=== PATIENT | female | born 1935 | race Caucasian/White ===

== ENCOUNTER 2017-06-15 04:46 | Observation (INO) | payer MEDICARE ==
[2017-06-15 06:44] LABS: Basophils # (A) 0.1 k/uL (0-0.2); Basophils % (A) 1 %; Eosinophils # (A) 0.2 k/uL (0-0.7); Eosinophils % (A) 3 %; HCT 44.4 % (34.0-46.0); HGB 14.1 gm/dL (11.4-16.0); Lymphocytes # (A) 0.7 k/uL (1.0-4.8); Lymphocytes % (A) 13 %; MCH 31.8 pg (25.0-35.0); MCHC 31.6 g/dL (31.0-37.0); MCV 100.4 fL (80.0-100.0); Mean Platelet Volume 8.3; Monocytes # (A) 0.4 k/uL (0-1.0); Monocytes % (A) 7 %; Neutrophils # (A) 3.9 k/uL (1.3-7.7); Neutrophils % (A) 75 %; Platelet Count 200 k/uL (150-450); RBC 4.43 m/uL (3.80-5.40); RDW 13.6 % (11.5-15.5); WBC 5.3 k/uL (3.8-10.6)
--- NOTE | 2017-06-15 06:46 | ED ---
General Adult HPI - General Chief complaint: Chest Pain Stated complaint: chest pain Time Seen by Provider: 06/15/17 04:48 Source: patient, RN notes reviewed, old records reviewed Mode of arrival: ambulatory Limitations: no limitations - History of Present Illness Initial comments: this is an 82-year-old female to the ER for evaluation of chest pain today. Patient is positive history of heart disease, patient came in about 10 years ago with bypass, she states this pain is similar to the old and it was in her left jaw this is more anterior chest. Mild nausea no vomiting. No modifying factors, symptoms awoke her from sleep tonight. No other recent symptoms, no fatigue. Activity levels been normal. No fevers no cough or congestion. Patient denies any travel history. Patient did see her grab setter recently and was started on Lipitor. Patient complaining of mild upset stomach - Related Data Home Medications Medication Instructions Recorded Confirmed ALPRAZolam [Xanax] 0.25 mg PO BID PRN 09/27/15 09/27/15 Aspirin EC [Ecotrin] 81 mg PO DAILY 09/27/15 09/27/15 Atenolol [Tenormin] 25 mg PO DAILY 09/27/15 09/27/15 Atorvastatin [Lipitor] 20 mg PO DAILY 09/27/15 09/27/15 amLODIPine [Norvasc] 2.5 mg PO DAILY 09/27/15 09/27/15 Allergies Allergy/AdvReac Type Severity Reaction Status Date / Time morphine AdvReac Hallucinati Verified 06/15/17 05:20 ons Review of Systems ROS Statement: Those systems with pertinent positive or pertinent negative responses have been documented in the HPI. ROS Other: All systems not noted in ROS Statement are negative. Past Medical History Past Medical History: Hypertension, Myocardial Infarction ([place]) History of Any Multi-Drug Resistant Organisms: None Reported Past Surgical History: Coronary Bypass/CABG Past Psychological History: No Psychological Hx Reported Smoking Status: Never smoker Past Alcohol Use History: None Reported Past Drug Use History: None Reported General Exam Limitations: no limitations General appearance: alert, in no apparent distress Head exam: Present: atraumatic, normocephalic, normal inspection Eye exam: Present: normal appearance, PERRL, EOMI. Absent: scleral icterus, conjunctival injection, periorbital swelling ENT exam: Present: normal exam, mucous membranes moist Neck exam: Present: normal inspection. Absent: tenderness, meningismus, lymphadenopathy Respiratory exam: Present: normal lung sounds bilaterally. Absent: respiratory distress, wheezes, rales, rhonchi, stridor Cardiovascular Exam: Present: regular rate, normal rhythm, normal heart sounds. Absent: systolic murmur, diastolic murmur, rubs, gallop, clicks GI/Abdominal exam: Present: soft, normal bowel sounds. Absent: distended, tenderness, guarding, rebound, rigid Extremities exam: Present: normal inspection, full ROM, normal capillary refill. Absent: tenderness, pedal edema, joint swelling, calf tenderness Back exam: Present: normal inspection Neurological exam: Present: alert, oriented X3, CN II-XII intact Psychiatric exam: Present: normal affect, normal mood Skin exam: Present: warm, dry, intact, normal color. Absent: rash Course Vital Signs 06/15/17 06/15/17 06/15/17 05:17 06:31 07:26 Temperature 98.2 F 97.9 F Pulse Rate 90 74 73 Respiratory 18 18 16 Rate Blood Pressure 160/76 154/73 152/69 O2 Sat by Pulse 94 L 100 99 Oximetry - Reevaluation(s) Reevaluation #1: 06/15/17 07:48 patient has pain control at this time, nauseous EKG Findings - EKG Comments: EKG Findings:: EKG shows normal sinus rhythm of 73, ND 176, QRS 90, QTc 425 Medical Decision Making - Medical Decision Making 82 female to ER for evaluation of chest pain. Episode of chest pain tonight. Patient will be admitted for cardiac observation secondary to history of coronary artery bypass grafting. - Lab Data Result diagrams: 06/15/17 06:23 06/15/17 06:23 Lab Results 06/15/17 06/15/17 06/15/17 Range/Units 06:23 06:23 06:23 WBC 5.3 (3.8-10.6) k/uL RBC 4.43 (3.80-5.40) m/uL Hgb 14.1 (11.4-16.0) gm/dL Hct 44.4 (34.0-46.0) % MCV 100.4 H (80.0-100.0) fL MCH 31.8 (25.0-35.0) pg MCHC 31.6 (31.0-37.0) g/dL RDW 13.6 (11.5-15.5) % Plt Count 200 (150-450) k/uL Neutrophils % 75 % Lymphocytes % 13 % Monocytes % 7 % Eosinophils % 3 % Basophils % 1 % Neutrophils # 3.9 (1.3-7.7) k/uL Lymphocytes # 0.7 L (1.0-4.8) k/uL Monocytes # 0.4 (0-1.0) k/uL Eosinophils # 0.2 (0-0.7) k/uL Basophils # 0.1 (0-0.2) k/uL PT (9.0-12.0) sec INR (<1.2) APTT (22.0-30.0) sec Sodium 142 (137-145) mmol/L Potassium 4.0 (3.5-5.1) mmol/L Chloride 109 H (98-107) mmol/L Carbon Dioxide 24 (22-30) mmol/L Anion Gap 9 mmol/L BUN 17 (7-17) mg/dL Creatinine 0.65 (0.52-1.04) mg/dL Est GFR (MDRD) Af Amer >60 (>60 ml/min/1.73 sqM) Est GFR (MDRD) Non-Af >60 (>60 ml/min/1.73 sqM) Glucose 105 H (74-99) mg/dL Calcium 9.6 (8.4-10.2) mg/dL Phosphorus 3.2 (2.5-4.5) mg/dL Magnesium 1.8 (1.6-2.3) mg/dL Total Bilirubin 0.7 (0.2-1.3) mg/dL AST 206 H (14-36) U/L ALT 547 H (9-52) U/L Alkaline Phosphatase 284 H (38-126) U/L Total Creatine Kinase 49 (30-135) U/L CK-MB (CK-2) 0.7 (0.0-2.4) ng/mL CK-MB (CK-2) Rel Index 1.4 Troponin I <0.012 (0.000-0.034) ng/mL Total Protein 6.7 (6.3-8.2) g/dL Albumin 3.7 (3.5-5.0) g/dL 12/20/17 Range/Units 06:23 WBC (3.8-10.6) k/uL RBC (3.80-5.40) m/uL Hgb (11.4-16.0) gm/dL Hct (34.0-46.0) % MCV (80.0-100.0) fL MCH (25.0-35.0) pg MCHC (31.0-37.0) g/dL RDW (11.5-15.5) % Plt Count (150-450) k/uL Neutrophils % % Lymphocytes % % Monocytes % % Eosinophils % % Basophils % % Neutrophils # (1.3-7.7) k/uL Lymphocytes # (1.0-4.8) k/uL Monocytes # (0-1.0) k/uL Eosinophils # (0-0.7) k/uL Basophils # (0-0.2) k/uL PT 9.9 (9.0-12.0) sec INR 1.0 (<1.2) APTT 22.7 (22.0-30.0) sec Sodium (137-145) mmol/L Potassium (3.5-5.1) mmol/L Chloride (98-107) mmol/L Carbon Dioxide (22-30) mmol/L Anion Gap mmol/L BUN (7-17) mg/dL Creatinine (0.52-1.04) mg/dL Est GFR (MDRD) Af Amer (>60 ml/min/1.73 sqM) Est GFR (MDRD) Non-Af (>60 ml/min/1.73 sqM) Glucose (74-99) mg/dL Calcium (8.4-10.2) mg/dL Phosphorus (2.5-4.5) mg/dL Magnesium (1.6-2.3) mg/dL Total Bilirubin (0.2-1.3) mg/dL AST (14-36) U/L ALT (9-52) U/L Alkaline Phosphatase (38-126) U/L Total Creatine Kinase (30-135) U/L CK-MB (CK-2) (0.0-2.4) ng/mL CK-MB (CK-2) Rel Index Troponin I (0.000-0.034) ng/mL Total Protein (6.3-8.2) g/dL Albumin (3.5-5.0) g/dL - Radiology Data Radiology results: report reviewed (chest x-ray is negative, ultrasound of gallbladder is pending), image reviewed Disposition Clinical Impression: Chest pain Disposition: ADMITTED IP TO THIS HOSP Condition: Fair Instructions: Chest Pain (ED) Referrals: Ba Corbin DO [Primary Care Provider] - 1-2 days
[2017-06-15 06:50] LABS: Partial Thromboplastin Time 22.7 sec (22.0-30.0); Prothrombin Time 9.9 sec (9.0-12.0)
--- NOTE | 2017-06-15 06:52 | XR ---
EXAM: XR Chest, 2 Views CLINICAL HISTORY: Weakness TECHNIQUE: Frontal and lateral views of the chest. COMPARISON: 09/27/2015 FINDINGS: Lungs: Stable COPD. Pleural space: Biapical pleural thickening is suggested. No pneumothorax. Heart: Patient status post CABG with sternotomy wires again seen. Mediastinum: Unchanged. Bones/joints: Stable osseous structures. IMPRESSION: Stable COPD without radiographic evidence of acute cardiopulmonary process.
[2017-06-15 06:53] LABS: ALT 547 U/L (9-52); AST 206 U/L (14-36); Albumin 3.7 g/dL (3.5-5.0); Alkaline Phosphatase 284 U/L (38-126); Anion Gap 9 mmol/L; Blood Urea Nitrogen 17 mg/dL (7-17); Calcium 9.6 mg/dL (8.4-10.2); Carbon Dioxide 24 mmol/L (22-30); Chloride 109 mmol/L (98-107); Glucose 105 mg/dL (74-99); Magnesium 1.8 mg/dL (1.6-2.3); Phosphorus 3.2 mg/dL (2.5-4.5); Sodium 142 mmol/L (137-145); Total Bilirubin 0.7 mg/dL (0.2-1.3); Total Protein 6.7 g/dL (6.3-8.2)
[2017-06-15 07:06] LABS: Creatine Kinase 49 U/L (30-135)
[2017-06-15 07:19] LABS: Creatine Kinase MB 0.7 ng/mL (0.0-2.4); Troponin I <0.012 ng/mL (0.000-0.034)
[2017-06-15] MEDS ORDERED: NITROGLYCERIN SL TABS 0.4 MG TAB SUBLINGUAL PRN (07:46)
[2017-06-15] MEDS ORDERED: HEPARIN SODIUM,PORCINE 5,000 UNIT/ML 1 ML VIAL IV PRN (07:46)
[2017-06-15] MEDS ORDERED: ASPIRIN 81 MG PO STA (07:46)
[2017-06-15] MEDS ORDERED: HEPARIN SODIUM,PORCINE 5,000 UNIT/ML 1 ML VIAL IV ONE (07:46)
[2017-06-15] MEDS ORDERED: HEPARIN SOD,PORK IN 0.45% NACL 25,000 UNIT in 0.45% NACL 1 500ML.BAG IV SCH (08:00)
[2017-06-15] MEDS ORDERED: ALPRAZolam 0.25 MG TAB PO STA (08:12)
[2017-06-15] MEDS ORDERED: ATORVASTATIN 80 MG TAB PO SCH (09:00)
[2017-06-15] MEDS ORDERED: METOPROLOL TARTRATE 25 MG TAB PO SCH (09:00)
--- NOTE | 2017-06-15 10:24 | US ---
EXAMINATION TYPE: US gallbladder DATE OF EXAM: 06/15/2017 COMPARISON: None CLINICAL HISTORY: 82-year-old female with pain, NPO TECHNIQUE: Multiple sonographic images of the right upper quadrant are obtained. FINDINGS: Liver Length: 12.4 cm Gallbladder Wall: 0.2 cm CBD: 5.0 mm CHD: 3.8 mm Right Kidney: 11.2 x 5.0 x 4.0 cm Pancreas: Appears echogenic. Tail obscured by overlying bowel gas Liver: Normal size with overall homogeneous echotexture. Gallbladder: There are abnormal gallbladder distention, wall thickening, pericholecystic fluid, or s hadowing calculi. Evidence for sonographic David's sign: neg CBD: wnl CHD: wnl Right Kidney: Echogenic foci present, largest measuring 9 mm shadowing calculus at the lower pole. Co rtical thinning suggests underlying chronic medical renal disease. Multiple central cystic lesions ar e present, largest in the upper pole measuring 2.4 x 2.5 x 1.6 cm suggestive of parapelvic cysts. No evident hydronephrosis. IMPRESSION: 1. Right-sided nephrolithiasis, largest calculus measuring 9 mm at the right lower pole. 2. Right-sided parapelvic cyst measuring up to 2.5 cm.
--- NOTE | 2017-06-15 13:47 | P.CRDCN ---
History of Present Illness Consult date: 06/15/17 History of present illness: Mrs. Damian is a pleasant 82-year-old female with past medical history significant for CAD with subsequent 4-vessel CABG (JACK-LAD, VG-OM1, VG-OM2 & VG -RCA), hypertension, carotid artery atherolsclerosis and dyslipidemia. She follows regularly with Dr. Irizarry in the office. She last saw him in June 07 of this year. At that time he started her on atorvastatin 20 mg daily. We have been asked to see her in consultation for complaints of a one-time episode of midsternal sharp chest pain. She states this occurred while at rest. She became lightheaded with this pain in the lightheadedness has persisted although the pain and subsided. She also complains of mild nausea with no vomiting. The pain radiated into her left jaw momentarily as well. No radiation into the arm or back. She does however state the cyst is similar to how she felt prior to having her bypass surgery. EKG reveals sinus mechanism with nonspecific ST abnormalities this is consistent with old EKG. Chest x-ray shows stable COPD. Laboratory data reviewed cardiac enzymes are negative 1, LFTs are significantly elevated, hemoglobin 14.1, platelets 200, BUN 17, creatinine 0.65 , potassium 4.0, magnesium 1.8. Current cardiac medications include atorvastatin 20 mg daily, amlodipine 5 mg daily, aspirin 81 mg daily, Toprol 25 mg daily. Review of Systems At the time of my exam: CONSTITUTIONAL: Denies fever. Denies chills. EYES: Denies blurred vision. Denies vision changes. Denies eye pain. EARS, NOSE, MOUTH & THROAT: Denies headache. Denies sore throat. Denies ear pain. CARDIOVASCULAR: Denies chest pain. Denies shortness of breath. Denies orthopnea. Denies PND. Denies palpitations. RESPIRATORY: Denies cough. GASTROINTESTINAL: Denies abdominal pain. Denies diarrhea. Denies constipation. Denies nausea. Denies vomiting. MUSCULOSKELETAL: Denies myalgias. INTEGUMENTARY: Denies pruitis. Denies rash. NEUROLOGIC: Denies numbness. Denies tingling. Denies weakness. PSYCHIATRIC: Denies anxiety. Denies depression. ENDOCRINE: Denies fatigue. Denies weight change. Denies polydipsia. Denies polyurina. GENITOURINARY: Denies burning, hematuria or urgency with micturation. HEMATOLOGIC: Denies history of anemia. Denies bleeding. Past Medical History Past Medical History: Coronary Artery Disease (CAD), Hyperlipidemia, Hypertension, Myocardial Infarction ([place]), Skin Disorder Additional Past Medical History / Comment(s): TIA-pt states never confirmed, psoriasis. Last Myocardial Infarction Date:: 2009 History of Any Multi-Drug Resistant Organisms: None Reported Past Surgical History: Coronary Bypass/CABG, Heart Catheterization, Tonsillectomy Additional Past Surgical History / Comment(s): 2009 CABG 4 vessel, bilateral cataract removals with lens implants Past Anesthesia/Blood Transfusion Reactions: No Reported Reaction Smoking Status: Never smoker - Past Family History Mother Family Medical History: CVA/TIA Additional Family Medical History / Comment(s): Mother of a CVA at the age of 73 yrs. Father Family Medical History: CVA/TIA Additional Family Medical History / Comment(s): Father had a surgical procedure with a CVA post op. He 5 yrs later at the age of 66yrs. Medications and Allergies Home Medications Medication Instructions Recorded Confirmed Type ALPRAZolam [Xanax] 0.25 mg PO BID PRN 09/27/15 06/15/17 History Aspirin EC [Ecotrin] 81 mg PO DAILY 09/27/15 06/15/17 History Atenolol [Tenormin] 25 mg PO DAILY 09/27/15 06/15/17 History Atorvastatin [Lipitor] 20 mg PO DAILY 09/27/15 06/15/17 History amLODIPine [Norvasc] 2.5 mg PO DAILY 09/27/15 06/15/17 History Allergies Allergy/AdvReac Type Severity Reaction Status Date / Time morphine AdvReac Hallucinati Verified 06/15/17 08:40 ons Physical Exam Vitals: Vital Signs Temp Pulse Pulse Resp BP BP Pulse Ox 06/15/17 09:19 98 F 80 16 166/60 97 06/15/17 08:00 98.4 F 94 16 156/76 98 06/15/17 07:26 97.9 F 73 16 152/69 99 06/15/17 06:31 74 18 154/73 100 06/15/17 05:17 98.2 F 90 18 160/76 94 L Intake and Output 06/14/17 06/15/17 06/15/17 22:59 06:59 14:59 Other: Weight 56.699 kg 57 kg Patient Weight 06/16/17 06:59 Weight 57 kg Blood pressure 156/76 with a heart rate of 94 GENERAL: This is a 82-year-old female in no apparent distress at the time of my examination. HEENT: Head is atraumatic, normocephalic. Pupils are equal, round. Sclerae anicteric. Conjunctivae are clear. Mucous membranes of the mouth are moist. Neck is supple. There is no jugular venous distention. No carotid bruit is heard. LUNGS: Clear to auscultation no wheezes, rales or rhonchi. No chest wall tenderness is noted on palpation or with deep breathing. HEART: Regular rate and rhythm without murmurs, rubs or gallops. S1 and S2 heard. ABDOMEN: Soft, nontender. Bowel sounds are heard. No organomegaly noted. EXTREMITIES: 2+ peripheral pulses with no evidence of peripheral edema and no calf tenderness noted. NEUROLOGIC: Patient is awake, alert and oriented x3. Results 06/15/17 06:23 06/15/17 06:23 Cardiac Enzymes 06/15/17 06/15/17 Range/Units 06:23 06:23 AST 206 H (14-36) U/L CK-MB (CK-2) 0.7 (0.0-2.4) ng/mL Troponin I <0.012 (0.000-0.034) ng/mL Coagulation 06/15/17 Range/Units 06:23 PT 9.9 (9.0-12.0) sec APTT 22.7 (22.0-30.0) sec CBC 06/15/17 Range/Units 06:23 WBC 5.3 (3.8-10.6) k/uL RBC 4.43 (3.80-5.40) m/uL Hgb 14.1 (11.4-16.0) gm/dL Hct 44.4 (34.0-46.0) % Plt Count 200 (150-450) k/uL Comprehensive Metabolic Panel 06/15/17 Range/Units 06:23 Sodium 142 (137-145) mmol/L Potassium 4.0 (3.5-5.1) mmol/L Chloride 109 H (98-107) mmol/L Carbon Dioxide 24 (22-30) mmol/L BUN 17 (7-17) mg/dL Creatinine 0.65 (0.52-1.04) mg/dL Glucose 105 H (74-99) mg/dL Calcium 9.6 (8.4-10.2) mg/dL AST 206 H (14-36) U/L ALT 547 H (9-52) U/L Alkaline Phosphatase 284 H (38-126) U/L Total Protein 6.7 (6.3-8.2) g/dL Albumin 3.7 (3.5-5.0) g/dL Current Medications Generic Name Dose Route Start Last Admin Trade Name Freq PRN Reason Stop Dose Admin Alprazolam 0.25 mg 06/15/17 08:12 Xanax PO BID PRN Anxiety Aspirin 325 mg 06/16/17 09:00 Aspirin PO DAILY MIRLANDE Heparin Sodium (Porcine) 0 unit 06/15/17 07:46 Heparin IV Q6HR PRN Low PTT Protocol Heparin Sodium/Sodium Chloride 500 mls @ 13.6 mls/hr 06/15/17 08:00 06/15/17 07:58 25,000 unit/ Sodium Chloride IV 12 units/kg/hr .Q24H MIRLANDE 13.6 mls/hr Protocol Administration 12 UNITS/KG/HR Metoprolol Tartrate 25 mg 06/15/17 09:00 Lopressor PO BID MIRLANDE Nitroglycerin 0.4 mg 06/15/17 07:46 Nitrostat SUBLINGUAL Q5M PRN Chest Pain Intake and Output 06/14/17 06/15/17 06/15/17 22:59 06:59 14:59 Other: Weight 56.699 kg 57 kg Patient Weight 06/16/17 06:59 Weight 57 kg 06/15/17 06:23 06/15/17 06:23 Assessment and Plan Assessment: ASSESSMENT 1. Chest pain 2. Coronary artery disease with subsequent 4 vessel CABG 2009 3. Hypertension 4. Abnormal liver function test currently on statin therapy PLAN Discontinue atorvastatin. Continue to obtain serial cardiac enzymes. Obtain 2-D echocardiogram and Doppler study to assess cardiac structure and function. Nothing by mouth after midnight. We'll reevaluate the patient in the morning for possible stress test. Nurse Practitioner note has been reviewed, I agree with a documented findings and plan of care. Patient was seen and examined.
[2017-06-15 14:04] LABS: Creatine Kinase 47 U/L (30-135)
--- NOTE | 2017-06-15 14:07 | ECHOF ---
Referral Reason:chest pain MEASUREMENTS -------- HEIGHT: 157.5 cm WEIGHT: 56.7 kg BP: 156/71 RVIDd: 2.7 cm (< 3.3) IVSd: 1.2 cm (0.6 - 1.1) LVIDd: 3.4 cm (3.9 - 5.3) LVPWd: 1.2 cm (0.6 - 1.1) IVSs: 1.3 cm LVIDs: 2.6 cm LVPWs: 0.9 cm LA Diam: 3.4 cm (2.7 - 3.8) Ao Diam: 2.3 cm (2.0 - 3.7) AV Cusp: 1.5 cm (1.5 - 2.6) LA Diam: 3.4 cm (2.7 - 3.8) MV EXCURSION: 15.618 mm (> 18.000) MV EF SLOPE: 87 mm/s (70 - 150) EPSS: 0.4 cm MV E Michele: 0.48 m/s MV DecT: 319 ms MV A Michele: 0.80 m/s MV E/A Ratio: 0.60 RAP: 5.00 mmHg RVSP: 21.14 mmHg FINDINGS -------- Sinus rhythm. This was a technically adequate study. The left ventricular size is normal. There is borderline concentric left ventricular hypertrophy. Overall left ventricular systolic function is low-normal with, an EF between 50 - 55 %. The right ventricle is normal in size. The left atrial size is normal. The right atrial size is normal. There is mild aortic valve sclerosis. There is no evidence of aortic regurgitation. Mild mitral annular calcification present. Mild mitral regurgitation is present. Mild tricuspid regurgitation present. There is no evidence of pulmonary hypertension. The right v entricular systolic pressure, as measured by Doppler, is 21.14mmHg. There is no pulmonic regurgitation present. The aortic root size is normal. There is no pericardial effusion. CONCLUSIONS -------- 1. The left ventricular size is normal. 2. There is borderline concentric left ventricular hypertrophy. 3. Overall left ventricular systolic function is low-normal with, an EF between 50 - 55 %. 4. There is mild aortic valve sclerosis. 5. Mild mitral annular calcification present. 6. Mild mitral regurgitation is present. 7. Mild tricuspid regurgitation present. 8. There is no evidence of pulmonary hypertension. 9. The right ventricular systolic pressure, as measured by Doppler, is 21.14mmHg. 10. There is no pulmonic regurgitation present. 11. The aortic root size is normal. 12. There is no pericardial effusion. DEPLOYMENT MANAGER: Veronica Wood RDCS
[2017-06-15 14:17] LABS: Creatine Kinase MB 0.8 ng/mL (0.0-2.4); Troponin I <0.012 ng/mL (0.000-0.034)
[2017-06-15 18:51] LABS: Creatine Kinase 142 U/L (30-135)
[2017-06-15 19:04] LABS: Troponin I <0.012 ng/mL (0.000-0.034)
[2017-06-15] MEDS: ALPRAZolam 0.25 MG TAB PO PRN (20:55)
--- NOTE | 2017-06-15 23:03 | HP ---
HISTORY AND PHYSICAL DATE OF ADMISSION: 06/15/2017. PRESENTING COMPLAINT: Chest pain. HISTORY OF PRESENTING COMPLAINT: This is a very pleasant 82-year-old patient of Dr. Corbin. The patient also follows with Dr. Joaquin, the store gift wrap associate. The patient has previously followed with Dr. Andry Madrigal and the patient had been on Lipitor, then enzymes went up. I saw the patient had presented to the ER in September of 2015. The liver enzymes were up and her Lipitor was discontinued. About 3 weeks ago, she saw Dr. Joaquin in the office, who put her back on the Lipitor. The patient has a prior history of coronary artery disease and stable medical conditions otherwise looked good: Hyperlipidemia, hypertension, anxiety. She woke up about 3:00 this morning with sharp chest pain. It lasted for a very short time, less than a minute, she thinks. There was no obvious shortness of breath. No dizziness. Some lightheadedness and questionable radiation. She does feel tired all the time at time and she came in for further cardiac workup. IV heparin was started. The patient's daughter Susanne was present. The patient normally otherwise is able to get around with no other chest pain. Earlier today, Lipitor was discontinued because the liver enzymes are felt to be high. REVIEW OF SYSTEMS: CONSTITUTIONAL: Tired. HEENT: None. RESPIRATORY: None. CARDIOVASCULAR: As above. GASTROINTESTINAL: No abdominal pain. GENITOURINARY: None. MUSCULOSKELETAL: None. DERMATOLOGICAL: None. HEMATOLOGIC: None. LYMPHATIC: None. PSYCHIATRY: Anxiety. NEUROLOGICAL: None. PAST HISTORY: Coronary artery disease, hypertension, hyperlipidemia, anxiety, psoriasis. PAST SURGICAL HISTORY: Coronary artery bypass, cardiac catheterization, tonsillectomy, coronary artery bypass in 2009, bilateral cataract with lens implant. SOCIAL HISTORY: Patient lives alone. She works at a [employer] part-time, takes a taxi to get to work. Does not smoke or drink alcohol. FAMILY HISTORY: Mother of stroke at age of 73. HOME MEDICATIONS: 1. Norvasc 2.5 mg a day. 2. Lipitor 20 mg a day. 3. Tenormin 25 mg a day. 4. Aspirin 81 mg a day. 5. Xanax 0.25 p.o. b.i.d. p.r.n. ALLERGIES: MORPHINE. EXAMINATION: Temperature 99, pulse 57, respirations 16, blood pressure 159/67, pulse ox 95% on room air. GENERAL APPEARANCE: Elderly female, lying in bed, somewhat anxious-appearing. EYES: Pupils equal. Conjunctivae normal. HEENT: Oral cavity normal. NECK: JVD not raised. Mass not palpable. RESPIRATORY: Effort normal. Lungs are clear. CARDIOVASCULAR: First and second sounds normal. No edema. ABDOMEN: Soft, nontender. Liver and spleen not palpable. LYMPHATIC: No lymph node palpable in neck or axillae. PSYCHIATRY: Alert and oriented x3. Mood and affect are anxious-appearing. NEUROLOGICAL: Pupils equal. Cranial nerves grossly intact. Power and sensation grossly intact. MUSCULOSKELETAL: Evidence of osteoarthritis, especially in the hands. INVESTIGATIONS: White count 5.3, hemoglobin 14.1, platelets 200. Potassium 4, BUN 17, creatinine 0.65. Liver enzymes show AST of 206, ALT 547. Troponin less than 0.012. Gallbladder ultrasound shows kidney stones on the right side. ASSESSMENT: 1. Anterior chest wall pain, very short-lived, sharp in nature, appears to be noncardiac in a patient with known coronary artery disease, but cannot rule out underlying active coronary artery disease. 2. Right nephrolithiasis, asymptomatic. 3. Coronary artery disease with prior history of coronary bypass. 4. Hyperlipidemia. 5. Essential hypertension. 6. Anxiety, not otherwise specified. 7. Drug-induced hepatitis likely from Lipitor. PLAN: Care was discussed with the patient and daughter at the bedside. Cardiology is contemplating a possible stress test in the morning. The patient was on IV heparin. Late in the evening, I was called and patient is having some hematuria, so IV heparin has been discontinued. I will order a liver ultrasound and also get a GI opinion, given the increased LFTs. Care was discussed the patient daughter Susanne in detail. Questions were answered. MMODL / IJN: [id number] /
[2017-06-16] MEDS: ALPRAZolam 0.25 MG TAB PO PRN (05:53)
[2017-06-16 07:10] LABS: Cholesterol 143 mg/dL (<200); HDL Cholesterol 43 mg/dL (40-60); LDL Cholesterol,Calculated 88 mg/dL (0-99); Triglycerides 59 mg/dL (<150)
[2017-06-16] MEDS ORDERED: AMINOPHYLLINE 500 MG/20 ML VIAL IV PRN (08:00)
[2017-06-16] MEDS ORDERED: REGADENOSON 0.4 MG/5 ML SYRINGE IV ONE (08:00)
[2017-06-16] MEDS ORDERED: amLODIPine 2.5 MG TAB PO SCH (09:00)
[2017-06-16] MEDS ORDERED: ASPIRIN 325 MG TAB PO SCH (09:00)
[2017-06-16] MEDS ORDERED: ATENOLOL 25 MG TAB PO SCH (09:00)
[2017-06-16] MEDS ORDERED: ASPIRIN 81 MG PO SCH (09:00)
--- NOTE | 2017-06-16 10:37 | NM ---
EXAMINATION TYPE: NM stress lexiscan Cardiolite DATE OF EXAM: 06/16/2017 COMPARISON: NONE HISTORY: History of 4 vessel bypass as well as hypertension and hypercholesterolemia and prior heart attack presents with chest pain, palpitations, and difficulty in breathing TECHNIQUE: After the intravenous administration of 11.8 mCi Tc 99m Sestamibi - Cardiolite resting SP ECT images acquired 45 minutes post injection. The patient received 0.4mg Lexiscan, 29 mCi Tc 99m Sestamibi - Stress images obtained 30 minutes post injection FINDINGS: Review of stress and rest SPECT images demonstrates no distinct perfusion abnormality. Gated analysi s shows normal wall motion. Estimated left ventricular ejection fraction is felt inaccurate by comput er. IMPRESSION: No scintigraphic evidence for reversible ischemia.
--- NOTE | 2017-06-16 10:52 | P.PN ---
Subjective Progress Note Date: 06/16/17 Mrs. Damian is a pleasant 82-year-old female with past medical history significant for CAD with subsequent 4-vessel CABG (JACK-LAD, VG-OM1, VG-OM2 & VG -RCA), hypertension, carotid artery atherolsclerosis and dyslipidemia. She follows regularly with Dr. Irizarry in the office. She last saw him in June 07 of this year. At that time he started her on atorvastatin 20 mg daily. We have been asked to see her in consultation for complaints of a one-time episode of midsternal sharp chest pain. She states this occurred while at rest. She became lightheaded with this pain in the lightheadedness has persisted although the pain and subsided. She also complains of mild nausea with no vomiting. The pain radiated into her left jaw momentarily as well. No radiation into the arm or back. She does however state this is similar to how she felt prior to having her bypass surgery. EKG reveals sinus mechanism with nonspecific ST abnormalities this is consistent with old EKG. Chest x-ray shows stable COPD. Laboratory data reviewed cardiac enzymes are negative 1, LFTs are significantly elevated, hemoglobin 14.1, platelets 200, BUN 17, creatinine 0.65 , potassium 4.0, magnesium 1.8. Current cardiac medications include atorvastatin 20 mg daily, amlodipine 5 mg daily, aspirin 81 mg daily, Toprol 25 mg daily. 06/16/2018 Mrs. Damian is seen today in follow up. She denies any further episodes of chest pain. She did however feel anxious last night and required a xanax. Echocardiogram reveals preserved LV fucntion wih EF 50-55%, mild aortic valve sclerosis, mild MR and TR. Cardiac enzymes are unremarkable. She did have some hematuria last night and heparin infusion was discontinued. Objective - Vital Signs Vital signs: Vital Signs Temp 98.0 F 06/16/17 08:00 Pulse 83 06/16/17 08:00 Resp 16 06/16/17 08:00 BP 140/65 06/16/17 08:00 Pulse Ox 95 06/16/17 08:00 Intake & Output 06/15/17 06/16/17 06/16/17 18:59 06:59 18:59 Intake Total 444.773 Balance 444.773 Weight 57 kg Intake: Intake, IV Titration 84.773 Amount Heparin Sod,Pork in 0.45% 84.773 NaCl 25,000 unit In 0.45 % NaCl 1 500ml.bag @ 12 UNITS/KG/HR 13.6 mls/hr IV .Q24H [facility] Rx#: [id number] Oral 360 Other: Voiding Method Toilet Toilet Toilet - Exam GENERAL: Well-appearing and in no acute distress. NECK: Supple without JVD or thyromegaly. LUNGS: Breath sounds clear to auscultation bilaterally. Respiration equal and unlabored. No wheezes, rales or rhonchi. HEART: Regular rate and rhythm without murmurs, rubs or gallops. S1 and S2 heard. EXTREMITIES: Normal range of motion, no edema. No clubbing or cyanosis. Peripheral pulses intact and strong. - Labs CBC & Chem 7: 06/16/17 06:25 06/15/17 06:23 Labs: Abnormal Lab Results - Last 24 Hours (Table) 06/15/17 06/15/17 06/15/17 Range/Units 12:58 18:06 22:24 APTT 102.5 H* 49.6 H (22.0-30.0) sec Total Creatine Kinase 142 H (30-135) U/L Assessment and Plan Assessment: ASSESSMENT 1. Chest pain 2. Coronary artery disease with subsequent 4 vessel CABG 2009 3. Hypertension 4. Abnormal liver function test currently on statin therapy PLAN Check CBC and urinalysis. Proceed with Lexiscan stress test to evaluate for stress induced reversible cardiac ischemia. If this is negative she is stable from a cardiac perspective. Nurse Practitioner note has been reviewed, I agree with a documented findings and plan of care. Patient was seen and examined.
[2017-06-16 11:20] LABS: Basophils # (A) 0.1 k/uL (0-0.2); Basophils % (A) 1 %; Eosinophils # (A) 0.1 k/uL (0-0.7); Eosinophils % (A) 3 %; HCT 43.8 % (34.0-46.0); HGB 13.3 gm/dL (11.4-16.0); Lymphocytes # (A) 0.8 k/uL (1.0-4.8); Lymphocytes % (A) 14 %; MCH 31.5 pg (25.0-35.0); MCHC 30.4 g/dL (31.0-37.0); MCV 103.8 fL (80.0-100.0); Macrocytosis Slight; Monocytes # (A) 0.4 k/uL (0-1.0); Monocytes % (A) 7 %; Neutrophils # (A) 3.8 k/uL (1.3-7.7); Neutrophils % (A) 73 %; RBC 4.22 m/uL (3.80-5.40); RDW 13.9 % (11.5-15.5); WBC 5.2 k/uL (3.8-10.6)
[2017-06-16 11:27] LABS: Mean Platelet Volume 7.5; Platelet Count 192 k/uL (150-450)
--- NOTE | 2017-06-16 11:45 | EST ---
EXERCISE STRESS AGE: 82 SEX: F HT: 62" WT: 125 PROTOCOL: Lexiscan Cardiolite Stress Test HEART RATE REST: 80 BLOOD PRESSURE REST: 130/55 MAXIMUM HEART RATE ACHIEVED: 109 MAXIMUM BLOOD PRESSURE: 142/60 85% MPHR: 117 100% MPHR: 138 INDICATIONS: Chest pain. CLINICAL INFORMATION: Baseline EKG revealed normal sinus rhythm without significant ST-T changes. With Lexiscan administration, patient's heart rate went from 80 to 109 beats per minute. BP changed from 130/55 to 142/60. Patient had some anxiety and had some uncomfortable feeling requiring aminophylline for reversal. EKG revealed inferolateral ST-segment depression with Lexiscan administration suggestive of ischemia. Patient also had uncomfortable feeling in the chest. By EKG criteria, this is an abnormal Lexiscan stress test. Possibility of ischemia should be considered. The nuclear scan results, which are more pertinent, will be reported by the radiologist. MMJACQUELINE / JAYLANN: [id number] /
[2017-06-16 14:32] LABS: Appearance,Urine Cloudy (Clear); Bacteria,Urine Rare /hpf; Bilirubin,Urine Negative (Negative); Blood,Urine Large (Negative); Color,Urine Yellow; Glucose,Urine (UA) Negative (Negative); Ketones,Urine 3+ (Negative); Leukocyte Esterase,Urine Small (Negative); Mucus,Urine Rare /hpf; Nitrite,Urine Negative (Negative); PH, Urine 5.5 (5.0-8.0); Protein,Urine Trace (Negative); RBC,Urine >182 /hpf (0-5); Specific Gravity,Urine 1.012 (1.001-1.035); Squamous Epithelial Cell,Urine 1 /hpf (0-4); Urobilinogen,Urine <2.0 mg/dL (<2.0); WBC,Urine 8 /hpf (0-5)
[2017-06-16 15:45] VITALS: BP 134/57; PULSE 74; RESP 18; TEMP 98.2
--- NOTE | 2017-06-16 15:58 | P.DS ---
Providers Date of admission: 06/15/17 07:48 Attending physician: Isidro Barrera Consults: 06/15/17 07:46 Consult Physician Urgent Consulting Provider: Yao Valdez Consult Reason/Comments: cp Do you want consulting provider notified?: Yes Primary care physician: [facility] Course: Patient was admitted for chest pain mostly has anxiety episode patient was cleared by cardiology patient underwent stress test which was negative PHYSICAL EXAMINATION: GENERAL: The patient is alert and oriented x3, not in any acute distress. Well developed, well nourished. HEENT: Pupils are round and equally reacting to light. EOMI. No scleral icterus. No conjunctival pallor. Normocephalic, atraumatic. No pharyngeal erythema. No thyromegaly. CARDIOVASCULAR: S1 and S2 present. No murmurs, rubs, or gallops. PULMONARY: Chest is clear to auscultation, no wheezing or crackles. ABDOMEN: Soft, nontender, nondistended, normoactive bowel sounds. No palpable organomegaly. MUSCULOSKELETAL: No joint swelling or deformity. EXTREMITIES: No cyanosis, clubbing, or pedal edema. NEUROLOGICAL: Gross neurological examination did not reveal any focal deficits. SKIN: No rashes. Patient has elevated liver enzymes we'll repeat the liver enzymes if they're stable are coming on patient will be discharged, hepatitis panel will be ordered and patient had an ultrasound of the gallbladder which did not show any nephrolithiasis patient also has asymptomatic bacteriuria which doesn't require any antibiotics patient had hematuria yesterday from heparin Patient Condition at Discharge: Fair Plan - Discharge Summary Discharge Rx Participant: Yes New Discharge Prescriptions: Continue ALPRAZolam [Xanax] 0.25 mg PO BID PRN #30 tab PRN Reason: Anxiety No Action amLODIPine [Norvasc] 2.5 mg PO DAILY Atorvastatin [Lipitor] 20 mg PO DAILY Atenolol [Tenormin] 25 mg PO DAILY Aspirin EC [Ecotrin] 81 mg PO DAILY Discharge Medication List Aspirin EC [Ecotrin] 81 mg PO DAILY 09/27/15 [History] Atenolol [Tenormin] 25 mg PO DAILY 09/27/15 [History] Atorvastatin [Lipitor] 20 mg PO DAILY 09/27/15 [History] amLODIPine [Norvasc] 2.5 mg PO DAILY 09/27/15 [History] ALPRAZolam [Xanax] 0.25 mg PO BID PRN #30 tab 06/15/17 [Rx] Follow up Appointment(s)/Referral(s): Ba Corbin DO [Primary Care Provider] - 1-2 days Patient Instructions/Handouts: Chest Pain (ED) Discharge Disposition: HOME SELF-CARE
[2017-06-16 16:21] LABS: ALT 364 U/L (9-52); AST 125 U/L (14-36); Albumin 3.4 g/dL (3.5-5.0); Alkaline Phosphatase 231 U/L (38-126); Anion Gap 10 mmol/L; Blood Urea Nitrogen 17 mg/dL (7-17); Calcium 9.6 mg/dL (8.4-10.2); Carbon Dioxide 25 mmol/L (22-30); Chloride 106 mmol/L (98-107); Glucose 109 mg/dL (74-99); Potassium 4.4 mmol/L (3.5-5.1); Sodium 141 mmol/L (137-145); Total Bilirubin 0.5 mg/dL (0.2-1.3)
[2017-06-17 01:47] LABS: Hepatitis A Antibody IgM Non-Reactive (Non-Reactive); Hepatitis B Core IgM Non-Reactive (Non-Reactive)
== END 2017-06-16 17:29 | disposition home or self-care (01) ==
LOC: EC 04:46 → 3OBS 07:48
PROVIDERS: ADMIT Hospitalist; ATTEND Hospitalist
DX: R07.89 Other chest pain (principal); I25.2 Old myocardial infarction; I10 Essential (primary) hypertension; I25.10 Atherosclerotic heart disease of native coronary artery without angina pectoris; E78.5 Hyperlipidemia, unspecified; J44.9 Chronic obstructive pulmonary disease, unspecified; R94.5 Abnormal results of liver function studies; F41.9 Anxiety disorder, unspecified; N20.0 Calculus of kidney; K75.89 Other specified inflammatory liver diseases; T50.905A Adverse effect of unspecified drugs, medicaments and biological substances, initial encounter; Z79.82 Long term (current) use of aspirin; Z79.899 Other long term (current) drug therapy; Z88.5 Allergy status to narcotic agent; Z95.1 Presence of aortocoronary bypass graft; Z82.3 Family history of stroke
CPT/HCPCS: 96366; 96376; 96365; 99285; 36415; 93005; 93017; 93306; 80061; 80053 ×2; 80074; 82550; 82553; 83690; 83735; 84100; 84484; 85025 ×2; 85610; 85730; 81001; 71020; 76705; 78452; G0378 ×2; A9500; J1644 ×2; J2785

== ENCOUNTER → 2017-08-04 | Outpatient (CLI) | payer MEDICARE ==
[2017-08-04 15:55] LABS: Blood Urea Nitrogen 21 mg/dL (7-17)
--- NOTE | 2017-08-05 08:18 | CT ---
EXAMINATION TYPE: CT abdomen pelvis w con DATE OF EXAM: 08/04/2017 COMPARISON: 05/24/2013 HISTORY: Renal cyst. CT DLP: 1253 mGycm CONTRAST: CT scan of the abdomen and pelvis is performed with Oral Contrast and with IV Contrast, patient injec alexander with 100ml mL of Omnipaque 300. FINDINGS: LUNG BASES-: No visible nodule. No infiltrate. LIVER/GB: No calcified gallstones. No space occupying hepatic lesion. Biliary tree is of normal ca liber. PANCREAS: No inflammation. No distinct mass. SPLEEN: No splenic enlargement. No lesion seen. ADRENALS: No nodule. No thickening. KIDNEYS/BLADDER: Multiple right-sided parapelvic cysts are noted the largest seen within the upper p ole measuring approximately 3 cm in greatest dimension. Renal pelvis is prominent and demonstrates se veral internal calcifications measuring up to 7.4 mm. There is parapelvic cyst seen upper pole left k idney which measures 2.1 cm. There is also prominence of the renal pelvis with layering calculi noted totaling approximately 8 and number with the largest measuring 7 mm. Calculus is also noted at the l eft UPJ measuring 7.4 mm and results in mild hydronephrosis. The ureters are symmetric and free of ad ditional calculi. Urinary bladder is unremarkable. BOWEL: Normal appendix. Normal bowel caliber. No inflammation. GENITAL ORGANS: No gross abnormality. LYMPH NODES: No greater than 1cm abdominal or pelvic lymph nodes are appreciated. AORTA: No significant abnormality. OSSEOUS STRUCTURES: Degenerative changes lumbar spine. OTHER: No significant additional abnormality is seen. IMPRESSION: 1. Bilateral parapelvic renal cysts 2. Bilateral calculi within the renal pelves left greater than right. Left UPJ calculus noted resulti ng in mild hydronephrosis. No solid renal lesions detected.
== END | disposition home or self-care (01) ==
LOC: RADCTMAIN 15:17
PROVIDERS: ATTEND Family Medicine
DX: N28.1 Cyst of kidney, acquired (principal); N13.2 Hydronephrosis with renal and ureteral calculous obstruction
CPT/HCPCS: 82565; 84520; 74177; 36415; Q9967

== ENCOUNTER 2018-07-05 11:30 | Inpatient (IN) | payer MEDICARE, OTHER ==
--- NOTE | 2018-07-05 12:42 | ED ---
General Adult HPI - General Chief complaint: Extremity Injury, Lower Stated complaint: IHS-Hip Pain Source: patient, family, RN notes reviewed Mode of arrival: wheelchair Limitations: no limitations - History of Present Illness Initial comments: Patient is an 83-year-old female who presents the emergency department with complaint of fall that happened at 11 AM today at her work. She reports she was walking along the sidewalk and there was a small drop-off the curb which she stepped off with her right foot causing her to fall onto her right buttock. Denies dizziness or lightheadedness prior to her fall. Denies head injury or loss of consciousness. She reports taking a baby aspirin daily, no other blood thinner use. She reports that she cannot bear weight on the right leg as it causes pain. She reports the pain starts at her right hip and goes down to her knee. She also reports a small abrasion to her right elbow. She denies being up-to-date on her tetanus vaccination, but refuses to have it updated here. She denies taking any pain medication and does not want anything at this time. Patient denies any recent fever, chills, shortness of breath, chest pain, back pain, abdominal pain, nausea or vomiting, numbness or tingling, headaches or visual changes, or any other complaints. - Related Data Home Medications Medication Instructions Recorded Confirmed Aspirin EC [Ecotrin] 81 mg PO HS 09/27/15 07/05/18 Metoprolol Tartrate [Lopressor] 25 mg PO DAILY 07/05/18 07/05/18 amLODIPine [Norvasc] 5 mg PO DAILY 07/05/18 07/05/18 Allergies Allergy/AdvReac Type Severity Reaction Status Date / Time morphine AdvReac Hallucinati Verified 07/05/18 15:49 ons Review of Systems ROS Statement: Those systems with pertinent positive or pertinent negative responses have been documented in the HPI. ROS Other: All systems not noted in ROS Statement are negative. Past Medical History Past Medical History: Coronary Artery Disease (CAD), Hyperlipidemia, Hypertension, Myocardial Infarction (CA), Skin Disorder Additional Past Medical History / Comment(s): TIA-pt states never confirmed, psoriasis. Last Myocardial Infarction Date:: 2009 History of Any Multi-Drug Resistant Organisms: None Reported Past Surgical History: Coronary Bypass/CABG, Heart Catheterization, Tonsillectomy Additional Past Surgical History / Comment(s): 2010 CABG 4 vessel, bilateral cataract removals with lens implants Past Anesthesia/Blood Transfusion Reactions: No Reported Reaction Past Psychological History: Anxiety Smoking Status: Never smoker Past Alcohol Use History: None Reported Past Drug Use History: None Reported - Past Family History Mother Family Medical History: CVA/TIA Additional Family Medical History / Comment(s): Mother of a CVA at the age of 73 yrs. Father Family Medical History: CVA/TIA Additional Family Medical History / Comment(s): Father had a surgical procedure with a CVA post op. He 5 yrs later at the age of 66yrs. General Exam Limitations: no limitations General appearance: alert, in no apparent distress Head exam: Present: atraumatic, normocephalic Eye exam: Present: normal appearance, PERRL, EOMI ENT exam: Present: normal oropharynx, mucous membranes moist Neck exam: Present: normal inspection, full ROM. Absent: tenderness Respiratory exam: Present: normal lung sounds bilaterally Cardiovascular Exam: Present: regular rate, normal rhythm GI/Abdominal exam: Present: soft, normal bowel sounds. Absent: tenderness Extremities exam: Present: normal capillary refill, other (DP and PT pulses are palpable and strong bilaterally.) Back exam: Absent: tenderness Neurological exam: Present: alert, oriented X3, CN II-XII intact Psychiatric exam: Present: normal affect, normal mood Skin exam: Present: warm, dry, abrasion (Small abrasion to right elbow. Small abrasions to left palm.) Course Vital Signs 07/05/18 07/05/18 11:36 16:13 Temperature 98.0 F 97.6 F Pulse Rate 75 74 Respiratory 18 16 Rate Blood Pressure 145/82 134/64 O2 Sat by Pulse 98 95 Oximetry EKG Findings - EKG Comments: EKG Findings:: EKG on 07/05/2018: Vent. rate 78 bpm. TX interval 168 ms. QRS duration 86 ms. QT/QTc 372/424 ms. P-R-T axes 64 41 79. Normal sinus rhythm. The quality of the EKG is poor, which likely caused the suggested reading of ST&T wave abnormality. Medical Decision Making - Medical Decision Making Ice packs placed next to right hip. Patient changed her mind and would like something for pain. Tylenol ordered for pain. X-ray of right femur, bilateral hips and pelvis reveals acute impacted minimally comminuted subcapital right hip fracture with foreshortening. No additional acute fracture or dislocation in the pelvis or remainder of the right femur. Diffuse osseous demineralization and degenerative changes. X-ray of right knee reveals no acute fracture or dislocation. Chest x-ray reveals cardiomegaly without acute pulmonary process. No significant change from prior chest x-ray. EKG as documented. Abrasions cleaned. Bacitracin applied to abrasions by nurse. Ordered Dilaudid for pain. Patient will be admitted to Dr. Perez with consult to Dr. Barrera for medical clearance. Case discussed in detail with attending physician Dr. Uriostegui. - Lab Data Result diagrams: 07/05/18 15:21 07/05/18 15:21 Lab Results 07/05/18 07/05/18 07/05/18 Range/Units 15:21 15:21 15:21 WBC 12.5 H (3.8-10.6) k/uL RBC 4.50 (3.80-5.40) m/uL Hgb 14.5 (11.4-16.0) gm/dL Hct 46.0 (34.0-46.0) % MCV 102.1 H (80.0-100.0) fL MCH 32.3 (25.0-35.0) pg MCHC 31.6 (31.0-37.0) g/dL RDW 12.8 (11.5-15.5) % Plt Count 198 (150-450) k/uL Neutrophils % 90 % Lymphocytes % 6 % Monocytes % 3 % Eosinophils % 1 % Basophils % 0 % Neutrophils # 11.2 H (1.3-7.7) k/uL Lymphocytes # 0.7 L (1.0-4.8) k/uL Monocytes # 0.4 (0-1.0) k/uL Eosinophils # 0.1 (0-0.7) k/uL Basophils # 0.1 (0-0.2) k/uL Macrocytosis Slight PT 10.1 (9.0-12.0) sec INR 0.9 (<1.2) APTT 23.7 (22.0-30.0) sec Sodium 141 (137-145) mmol/L Potassium 4.5 (3.5-5.1) mmol/L Chloride 108 H (98-107) mmol/L Carbon Dioxide 24 (22-30) mmol/L Anion Gap 9 mmol/L BUN 13 (7-17) mg/dL Creatinine 0.61 (0.52-1.04) mg/dL Est GFR (CKD-EPI)AfAm >90 (>60 ml/min/1.73 sqM) Est GFR (CKD-EPI)NonAf 84 (>60 ml/min/1.73 sqM) Glucose 119 H (74-99) mg/dL Calcium 9.5 (8.4-10.2) mg/dL Total Bilirubin 0.9 (0.2-1.3) mg/dL AST 35 (14-36) U/L ALT 38 (9-52) U/L Alkaline Phosphatase 102 (38-126) U/L Total Protein 6.9 (6.3-8.2) g/dL Albumin 4.0 (3.5-5.0) g/dL Disposition Clinical Impression: Fracture of femur Disposition: ADMITTED IP TO THIS HOSP Is patient prescribed a controlled substance at d/c from ED?: No Referrals: Ba Corbin DO [Primary Care Provider] - 1-2 days
[2018-07-05] MEDS ORDERED: ACETAMINOPHEN TAB 500 MG TAB PO STA (13:21)
--- NOTE | 2018-07-05 13:24 | XR ---
EXAMINATION TYPE: XR chest 1V DATE OF EXAM: 07/05/2018 COMPARISON: Chest x-ray May 16, 2017 HISTORY: Chest pain and weakness. TECHNIQUE: Single AP portable frontal supine view of the chest is obtained. FINDINGS: Post CABG changes with mediastinal clips and sternal wires is redemonstrated. There is no f ocal air space opacity, pleural effusion, or pneumothorax seen. The cardiac silhouette size is mildl y enlarged on current study. The osseous structures remain demineralized. Underlying scoliosis in t he lumbar spine is partially imaged. IMPRESSION: Cardiomegaly without acute pulmonary process. No significant change from prior chest x-r ay.
--- NOTE | 2018-07-05 13:30 | XR ---
EXAMINATION TYPE: XR femur RT, XR Hip Bilateral and AP pelvis DATE OF EXAM: 07/05/2018 CLINICAL HISTORY: Bilateral hip and pelvic pain TECHNIQUE: Two views of the right femur are obtained. Single view of the pelvis and 2 views of the b ilateral hips are obtained. COMPARISON: None FINDINGS: There is a very minimally comminuted subcapital impaction fracture of the right femoral ne ck with 1.3 cm of medial cortical foreshortening. A 6 mm comminuted fragment is seen along the medial cortex on the frontal pelvic radiograph. There is generalized osseous demineralization. The remainde r of the right femur appears intact. Moderate atherosclerosis is seen of the right femoral artery and its branches. Surgical clips are seen in the subcutaneous soft tissues just proximal to and surround ing the right knee. Medial compartment joint space narrowing is partially visualized of the knee. No additional acute fracture is seen of the pelvis. The left femur appears intact. There is mild bila teral femoral acetabular arthropathy demonstrated as acetabular roof sclerosis. Moderate degenerative changes of the lumbosacral junction are noted. IMPRESSION: 1. Acute impacted minimally comminuted subcapital right hip fracture with foreshortening. 2. No additional acute fracture or dislocation in the pelvis or remainder the right femur. 3. Diffuse osseous demineralization and degenerative changes as described above.
--- NOTE | 2018-07-05 13:32 | XR ---
EXAMINATION TYPE: XR knee limited RT DATE OF EXAM: 07/05/2018 CLINICAL HISTORY: Right knee pain TECHNIQUE: Frontal and lateral views of the right knee were obtained. COMPARISON: None. FINDINGS: There is no acute fracture/dislocation evident in right knee. There is diffuse osseous dem ineralization. Moderate atherosclerosis is noted with surgical clips along the medial soft tissues of the right lower extremity surrounding the knee joint. Mild medial compartment joint space narrowing and tibial plateau sclerosis are seen. IMPRESSION: There is no acute fracture or dislocation in the right knee.
[2018-07-05] MEDS ORDERED: HYDROmorphone 0.5 MG/0.5 ML SYRINGE IVP STA ×2 (13:56→18:00)
[2018-07-05] MEDS ORDERED: SODIUM CHLORIDE 0.9% 1,000 ML IV SCH (14:00)
[2018-07-05] MEDS ORDERED: NALOXONE 0.4 MG/ML 1 ML VIAL IV PRN (14:21)
[2018-07-05] MEDS ORDERED: ONDANSETRON 4 MG/2 ML VIAL IVP PRN (14:29)
[2018-07-05 15:50] LABS: Basophils # (A) 0.1 k/uL (0-0.2); Basophils % (A) 0 %; Eosinophils # (A) 0.1 k/uL (0-0.7); Eosinophils % (A) 1 %; HGB 14.5 gm/dL (11.4-16.0); Lymphocytes # (A) 0.7 k/uL (1.0-4.8); Lymphocytes % (A) 6 %; MCH 32.3 pg (25.0-35.0); MCHC 31.6 g/dL (31.0-37.0); MCV 102.1 fL (80.0-100.0); Macrocytosis Slight; Mean Platelet Volume 7.1; Monocytes # (A) 0.4 k/uL (0-1.0); Monocytes % (A) 3 %; Neutrophils # (A) 11.2 k/uL (1.3-7.7); Neutrophils % (A) 90 %; Platelet Count 198 k/uL (150-450); RDW 12.8 % (11.5-15.5); WBC 12.5 k/uL (3.8-10.6)
[2018-07-05 16:06] LABS: ALT 38 U/L (9-52); AST 35 U/L (14-36); Alkaline Phosphatase 102 U/L (38-126); Anion Gap 9 mmol/L; Blood Urea Nitrogen 13 mg/dL (7-17); Calcium 9.5 mg/dL (8.4-10.2); Carbon Dioxide 24 mmol/L (22-30); Chloride 108 mmol/L (98-107); Glucose 119 mg/dL (74-99); INR 0.9 (<1.2); Potassium 4.5 mmol/L (3.5-5.1); Sodium 141 mmol/L (137-145); Total Bilirubin 0.9 mg/dL (0.2-1.3); Total Protein 6.9 g/dL (6.3-8.2)
[2018-07-05 16:07] LABS: Partial Thromboplastin Time 23.7 sec (22.0-30.0); Prothrombin Time 10.1 sec (9.0-12.0)
[2018-07-05] MEDS ORDERED: METOPROLOL TARTRATE 25 MG TAB PO SCH (20:45)
[2018-07-05] MEDS: HYDROmorphone 0.5 MG/0.5 ML SYRINGE IVP PRN (21:05)
--- NOTE | 2018-07-05 22:12 | CONS ---
CONSULTATION DATE OF CONSULTATION: 07/05/2018 REASON FOR CONSULTATION: Medical management requested by Dr. Perez. CONSULTATION: This is a pleasant 83-year-old patient follows with Dr. Corbin. Chronic stable medical conditions include coronary artery disease, hyperlipidemia, hypertension. Patient is rather active and gets around pretty well at her baseline. No chest pain or shortness of breath. Patient was walking, took a misstep and fell down, hurting her right hip, needed help to get up. Patient was found to have a right hip fracture, minimally displaced, admitted for the same. Patient's family is at the bedside, including her daughter. Patient did have a stress test close to a year ago. It was a nuclear stress test that was negative. The patient has had no cardiac symptoms. Patient takes her medications regularly. REVIEW OF SYSTEMS: CONSTITUTIONAL: Tired. HEENT: None. RESPIRATORY: None. CARDIOVASCULAR: None. GASTROINTESTINAL: None. GENITOURINARY: None. MUSCULOSKELETAL: Arthritic pain in joints and the fracture site. DERMATOLOGICAL: None. HEMATOLOGICAL: None. LYMPHATICS: None. PSYCHIATRY: Slightly anxious. NEUROLOGICAL: Does not sleep well. PAST MEDICAL HISTORY: 1. Coronary artery disease. 2. Hyperlipidemia. 3. Hypertension. 4. Skin disorder. 5. Psoriasis. 6. Kidney stones. PAST SURGICAL HISTORY: 1. Coronary artery bypass 2009. 2. Bilateral cataract removal and lens implants. 3. Lithotripsy. PSYCH HISTORY: Anxiety. SOCIAL HISTORY: Lives by herself. Able to get around. She works at the [employer] part-time. No smoking. No alcohol. FAMILY HISTORY: Mother of stroke at age of 73. HOME MEDICATIONS: 1. Norvasc 5 mg daily. 2. Lopressor 25 mg b.i.d. 3. Aspirin 81 mg at bedtime. ALLERGIES: MORPHINE causing hallucinations. PHYSICAL EXAMINATION: Temperature 98.1, pulse 80, respiration 16, blood pressure 153/67, pulse ox 96% on room air. GENERAL APPEARANCE: Average build. Lying in bed, anxious-appearing, awake. EYES: Pupils equal. Conjunctivae normal. HEENT: External appearance of nose and ears normal. Oral cavity normal. NECK: JVD not raised. Mass not palpable. RESPIRATORY: Effort normal. Lungs are clear. CARDIOVASCULAR: First and second sounds normal. No edema. ABDOMEN: Soft, non-tender. Liver and spleen not palpable. LYMPHATIC: No lymph node palpable in neck or axillae. PSYCHIATRY: Alert and oriented x3. Mood and affect anxious-appearing. NEUROLOGICAL: Pupils equal. Cranial nerves grossly intact. Power and sensation grossly intact. MUSCULOSKELETAL: Evidence of osteoarthritis, especially in the hands. Limited range of motion of the right hip. INVESTIGATIONS: White count 12.5, hemoglobin 14.5, potassium 4.5. BUN and creatinine are normal. EKG tracing personally reviewed by me shows normal sinus rhythm with some nonspecific changes. Chest x-ray film personally reviewed by me shows borderline cardiomegaly; lung molina with no obvious infiltrate. Femur x-ray reports impacted fracture, minimally displaced. ASSESSMENT: 1. Acute right hip fracture, minimally displaced, secondary to a mechanical fall. 2. Coronary artery disease with prior history of bypass with a stress test over a year ago with no cardiac symptoms and a fair exercise tolerance. 3. Essential hypertension. 4. Hyperlipidemia. 5. Anxiety not otherwise specified. 6. Chronic insomnia. PLAN: Patient is medically stable with low to moderate risk for surgery. Patient is otherwise medically stable to proceed with the same. Care was discussed with the patient and daughter and family at the bedside. Questions were answered. Will give Lovenox for DVT prophylaxis. Will change patient's Lopressor to 12.5 twice a day. Will also give some Ativan p.r.n. for uncontrolled anxiety. This will also help her sleep. Thank you, Dr. Perez. JAYSON / AVERY: [id number] /
[2018-07-05] MEDS: LORazepam 0.5 MG TAB PO PRN (22:27)
[2018-07-05] MEDS: LACTATED RINGERS 1,000 ML IV SCH (22:28)
[2018-07-05] MEDS: ENOXAPARIN 40 MG/0.4 ML SYRINGE SQ SCH (22:30)
[2018-07-05] MEDS: METOPROLOL TARTRATE 12.5 MG TAB PO SCH (22:30)
[2018-07-06] MEDS: HYDROmorphone 0.5 MG/0.5 ML SYRINGE IVP PRN (06:11)
[2018-07-06] MEDS: amLODIPine 5 MG TAB PO SCH (07:42)
[2018-07-06] MEDS: METOPROLOL TARTRATE 12.5 MG TAB PO SCH ×2 (07:43→20:38)
[2018-07-06] MEDS: ENOXAPARIN 40 MG/0.4 ML SYRINGE SQ SCH (07:43)
[2018-07-06] MEDS ORDERED: METOPROLOL TARTRATE 25 MG TAB PO SCH (09:00)
--- NOTE | 2018-07-06 09:47 | P.HPOR ---
History of Present Illness H&P Date: 07/06/18 Chief Complaint: Right hip fracture. This is an 83-year-old female who fell in her home yesterday sustaining injury to her right hip. On exam and x-ray in the emergency department she is found to have a subcapital fracture of the right hip. She is admitted to our service for surgical intervention and care. Past Medical History Past Medical History: Coronary Artery Disease (CAD), Chest Pain / Angina, Hyperlipidemia, Hypertension, Myocardial Infarction (SD), Skin Disorder Additional Past Medical History / Comment(s): TIA-pt states never confirmed, psoriasis.kidney stones, past stress test Last Myocardial Infarction Date:: 2009 History of Any Multi-Drug Resistant Organisms: None Reported Past Surgical History: Coronary Bypass/CABG, Heart Catheterization, Tonsillectomy Additional Past Surgical History / Comment(s): 2009 CABG 4 vessel, bilateral cataract removals with lens implants.lithoptripsy Past Anesthesia/Blood Transfusion Reactions: No Reported Reaction Smoking Status: Never smoker - Past Family History Mother Family Medical History: CVA/TIA Additional Family Medical History / Comment(s): Mother of a CVA at the age of 73 yrs. Father Family Medical History: CVA/TIA Additional Family Medical History / Comment(s): Father had a surgical procedure with a CVA post op. He 5 yrs later at the age of 66yrs. Medications and Allergies Home Medications Medication Instructions Recorded Confirmed Type Aspirin EC [Ecotrin] 81 mg PO HS 09/27/15 07/05/18 History Metoprolol Tartrate [Lopressor] 25 mg PO DAILY 07/05/18 07/05/18 History amLODIPine [Norvasc] 5 mg PO DAILY 07/05/18 07/05/18 History Allergies Allergy/AdvReac Type Severity Reaction Status Date / Time morphine AdvReac Hallucinati Verified 07/05/18 19:14 ons Physical Examination This is a pleasant 83-year-old female in no acute distress. She is alert and oriented 3. Exam of the head neck reveal no obvious deformity. She has fairly good cervical spine motion without difficulty or pain. Exam the upper extremities is unremarkable. She has fairly good elbow, wrist and finger motion bilaterally. Neurovascular status to the upper extremities is intact. Exam of the lower extremities reveals that the right lower extremity is in Em' s traction. She has full foot and ankle motion without difficulty or pain. Neurovascular status right lower extremity is intact. Exam of the left lower extremity reveals no obvious deformity. No hip pain with logroll to the left hip. She has full foot and ankle motion without difficulty or pain. Results X-rays of the pelvis and right hip reveal a minimally displaced femoral neck fracture. No other bony abnormality is noted. - Labs Labs: Abnormal Lab Results - Last 24 Hours (Table) 07/05/18 07/05/18 Range/Units 15:21 15:21 WBC 12.5 H (3.8-10.6) k/uL MCV 102.1 H (80.0-100.0) fL Neutrophils # 11.2 H (1.3-7.7) k/uL Lymphocytes # 0.7 L (1.0-4.8) k/uL Chloride 108 H (98-107) mmol/L Glucose 119 H (74-99) mg/dL H & H 07/05/18 Range/Units 15:21 Hgb 14.5 (11.4-16.0) gm/dL Hct 46.0 (34.0-46.0) % Coagulation 07/05/18 Range/Units 15:21 INR 0.9 (<1.2) Result Diagrams: 07/05/18 15:21 07/05/18 15:21 Assessment and Plan (1) Fracture of femoral neck, right Current Visit: Yes Status: Acute Code(s): S72.001A - FRACTURE OF UNSP PART OF NECK OF RIGHT FEMUR, INIT SNOMED Code(s): 2818259 (2) History of coronary artery bypass surgery Current Visit: Yes Status: Acute Code(s): Z95.1 - PRESENCE OF AORTOCORONARY BYPASS GRAFT SNOMED Code(s): 717167329 (3) History of SD (myocardial infarction) Current Visit: Yes Status: Acute Code(s): I25.2 - OLD MYOCARDIAL INFARCTION SNOMED Code(s): 421037687 (4) Fracture of femur Current Visit: Yes Status: Acute Code(s): S72.90XA - UNSP FRACTURE OF UNSP FEMUR, INIT ENCNTR FOR CLOSED FRACTURE SNOMED Code(s): 67492218 Plan: The clinical and x-ray findings are discussed the patient. The patient and her family are requesting Dr. Bull Perez. I have spoken with Dr. Perez who agrees to take care of the patient. We are planning hemiarthroplasty of the right hip tomorrow if cleared medically. I anticipate the possible need for inpatient rehab postoperatively.
[2018-07-06] MEDS: HYDROcodone/APAP 5-325MG 1 EACH TAB PO PRN ×2 (10:07→16:41)
--- NOTE | 2018-07-06 19:46 | PN ---
PROGRESS NOTE DATE OF SERVICE: 07/06/2018 PRESENTING COMPLAINT: Right hip fracture. INTERVAL HISTORY: This pleasant lady had a fall with a fracture of her right hip, somewhat anxious. Did get some sleep last night. Family at the bedside, including her daughter. No chest pain. Breathing is stable. Patient is scheduled for surgery tomorrow. Hemodynamically stable. No cardiac issues. REVIEW OF SYSTEMS: Done for constitutional, cardiovascular, GI, pulmonary; relevant findings as above. CURRENT MEDICATIONS: Reviewed. PHYSICAL EXAMINATION: Temperature 97.4, pulse 66, respiration 17, blood pressure 113/63, pulse 95% on 2 L. GENERAL APPEARANCE: Lying in bed. Comfortable. EYES: Pupils equal. Conjunctivae normal. NECK: JVD not raised. Mass not palpable. RESPIRATORY: Effort normal. Lungs are clear. CARDIOVASCULAR: First and second sounds normal. No edema. ABDOMEN: Soft, non-tender. Liver and spleen not palpable. MUSCULOSKELETAL: Limited range of motion of the right hip. PSYCHIATRY: Alert and oriented x3. Mood and affect slightly anxious-appearing. INVESTIGATIONS: No blood work from today. ASSESSMENT: 1. Acute right hip fracture, minimally displaced, secondary to fall, pending surgery. 2. Coronary artery disease with prior history of bypass, stable. 3. Essential hypertension. 4. Hyperlipidemia. 5. Anxiety not otherwise specified. 6. Chronic insomnia. PLAN: Patient is stable to proceed with surgery. Did speak to the patient and her daughter at the bedside. Questions were answered. Surgery is being planned for tomorrow. MMODL / IJN: [id number] /
[2018-07-06] MEDS: LACTATED RINGERS 1,000 ML IV SCH (20:38)
[2018-07-06] MEDS: LORazepam 0.5 MG TAB PO PRN (21:13)
[2018-07-07] MEDS: HYDROcodone/APAP 5-325MG 1 EACH TAB PO PRN ×2 (06:14→19:13)
[2018-07-07] MEDS ORDERED: MIDAZOLAM 2 MG/2 ML VIAL IV PRN (06:20)
[2018-07-07] MEDS ORDERED: fentaNYL (PF) 50 MCG/ML 2 ML AMP IV PRN (06:20)
--- NOTE | 2018-07-07 07:17 | ECHOF ---
Referral Reason:Surgical clearance MEASUREMENTS -------- HEIGHT: 182.9 cm WEIGHT: 54.4 kg BP: 144/75 RVIDd: 2.6 cm (< 3.3) IVSd: 1.0 cm (0.6 - 1.1) LVIDd: 4.2 cm (3.9 - 5.3) LVPWd: 1.0 cm (0.6 - 1.1) IVSs: 1.2 cm LVIDs: 2.6 cm LVPWs: 1.2 cm LAESV Index (A-L): 16.01 ml/m Ao Diam: 2.5 cm (2.0 - 3.7) AV Cusp: 1.7 cm (1.5 - 2.6) LA Diam: 3.3 cm (2.7 - 3.8) EPSS: 0.3 cm MV E Michele: 0.81 m/s MV DecT: 318 ms MV A Michele: 0.85 m/s MV E/A Ratio: 0.96 RAP: 5.00 mmHg RVSP: 48.71 mmHg MV EF SLOPE: 46.40 mm/s (70 - 150) MV EXCURSION: 1.24 cm (> 18.000) FINDINGS -------- Sinus rhythm. This was a technically adequate study. The left ventricular size is normal. Left ventricular wall thickness is normal. Overall left vent ricular systolic function is normal with, an EF between 55 - 60 %. The right ventricle is normal in size and function. The left atrial size is normal. The right atrium is normal in size. Aortic valve is trileaflet and is moderately thickened. There is no evidence of aortic regurgitatio n. There is no evidence of aortic stenosis. Mild mitral annular calcification present. There is trace to mild mitral regurgitation. Mild tricuspid regurgitation present. There is mild pulmonary hypertension. The right ventricular systolic pressure, as measured by Doppler, is 48.71mmHg. Trace/mild (physiologic) pulmonic regurgitation. The aortic root size is normal. Normal inferior vena cava with normal inspiratory collapse consistent with estimated right atrial pre ssure of 5 mmHg. There is no pericardial effusion. CONCLUSIONS -------- 1. Sinus rhythm. 2. This was a technically adequate study. 3. The left ventricular size is normal. 4. Left ventricular wall thickness is normal. 5. Overall left ventricular systolic function is normal with, an EF between 55 - 60 %. 6. The left atrial size is normal. 7. Aortic valve is trileaflet and is moderately thickened. 8. Mild mitral annular calcification present. 9. There is trace to mild mitral regurgitation. 10. Mild tricuspid regurgitation present. 11. There is mild pulmonary hypertension. 12. The right ventricular systolic pressure, as measured by Doppler, is 48.71mmHg. 13. Trace/mild (physiologic) pulmonic regurgitation. 14. The aortic root size is normal. 15. There is no pericardial effusion. [employer]GE ASSEMBLER: Miguelangel Cary RDCS
[2018-07-07] MEDS: LACTATED RINGERS 1,000 ML IV SCH ×2 (07:36→20:23)
[2018-07-07] MEDS: ENOXAPARIN 40 MG/0.4 ML SYRINGE SQ SCH (09:51)
[2018-07-07] MEDS: METOPROLOL TARTRATE 12.5 MG TAB PO SCH (09:53)
[2018-07-07] MEDS: amLODIPine 5 MG TAB PO SCH (09:53)
[2018-07-07] MEDS ORDERED: METOPROLOL TARTRATE 25 MG TAB PO STA (12:27)
--- NOTE | 2018-07-07 12:35 | P.CRDCN ---
History of Present Illness History of present illness: This is a pleasant 83-year-old female past medical history significant for coronary artery disease status post four-vessel bypass grafting in 2009 with a JACK to LAD, SVG to OM1, SVG to OM 2 and SVG to RCA. She also has hypertension, dyslipidemia and has had a TIA in the past. She follows with Dr. Velázquez in the office. We've been asked to see her in consultation for preoperative evaluation. She presented to the hospital 07/05 after suffering a fall while at work. she works at [employer] and states she slipped and fell off the curb. Xray imaging reveals a right femoral neck fracture. Ortho has seen the patient and plans for right hip hemiarthroplasty this afternoon. She is seen and examined resting comfortably in bed in no acute distress. She is lying flat, respirations equal and unlabored. Daughters at the bedside. She denies symptoms of chest pain, shortness of breath, dizziness or palpitations. She underwent a Lexiscan stress test May 2017 which was negative for reversible cardiac ischemia. Echocardiogram obtained reveals preserved left ventricular systolic function with ejection fraction 55-60% with pulmonary hypertension with an RVSP of 48.7 mmHg. EKG reveals sinus mechanism with nonspecific ST abnormalities noted. No acute abnormalities. Laboratory data reviewed, WBC 12.5, hemoglobin 14.5, platelets 198, sodium 141, potassium 4.5, creatinine 0.61. Current cardiac medications include aspirin 81 mg daily, Lopressor 25 mg daily and amlodipine 5 mg daily. At the time of my exam: CONSTITUTIONAL: Denies fever. Denies chills. EYES: Denies blurred vision. Denies vision changes. Denies eye pain. EARS, NOSE, MOUTH & THROAT: Denies headache. Denies sore throat. Denies ear pain. CARDIOVASCULAR: Denies chest pain. Denies shortness of breath. Denies orthopnea. Denies PND. Denies palpitations. RESPIRATORY: Denies cough. GASTROINTESTINAL: Denies abdominal pain. Denies diarrhea. Denies constipation. Denies nausea. Denies vomiting. MUSCULOSKELETAL: Denies myalgias. INTEGUMENTARY: Denies pruitis. Denies rash. NEUROLOGIC: Denies numbness. Denies tingling. Denies weakness. PSYCHIATRIC: Denies anxiety. Denies depression. ENDOCRINE: Denies fatigue. Denies weight change. Denies polydipsia. Denies polyurina. GENITOURINARY: Denies burning, hematuria or urgency with micturation. HEMATOLOGIC: Denies history of anemia. Denies bleeding. GENERAL: This is a 83-year-old female in no apparent distress at the time of my examination. HEENT: Head is atraumatic, normocephalic. Pupils are equal, round. Sclerae anicteric. Conjunctivae are clear. Mucous membranes of the mouth are moist. Neck is supple. There is no jugular venous distention. No carotid bruit is heard. LUNGS: Clear to auscultation no wheezes, rales or rhonchi. No chest wall tenderness is noted on palpation or with deep breathing. HEART: Regular rate and rhythm without murmurs, rubs or gallops. S1 and S2 heard. ABDOMEN: Soft, nontender. Bowel sounds are heard. No organomegaly noted. EXTREMITIES: No evidence of peripheral edema and no calf tenderness noted. VASCULAR: Radial and dorsalis pedis pulses palpated, no evidence of clubbing. NEUROLOGIC: Patient is awake, alert and oriented x3. ASSESSMENT Mechanical fall from standing. No syncope, chest pain or shortness of breath Right femoral neck fracture History of coronary artery disease status post bypass grafting Hypertension Pulmonary hypertension, RVSP 48 mmHg Leukocytosis Dyslipidemia, statin has been discontinued in the past for elevated liver enzymes. PLAN Patient is seen and examined resting comfortably in bed. She has no symptoms suggestive of angina and is currently euvolemic. She is a high risk patient for surgical intervention secondary to multiple comorbid conditions. However there are no acute contraindications to surgical intervention. We will increase her beta erna to 50 mg in the morning and 25 mg at bedtime. Follow up with Dr. Velázquez upon discharge. Thank you kindly for this consultation. Nurse Practitioner note has been reviewed, I agree with a documented findings and plan of care. Patient was seen and examined. Past Medical History Past Medical History: Coronary Artery Disease (CAD), Chest Pain / Angina, Hyperlipidemia, Hypertension, Myocardial Infarction ([place]), Skin Disorder Additional Past Medical History / Comment(s): TIA-pt states never confirmed, psoriasis.kidney stones, past stress test Last Myocardial Infarction Date:: 2009 History of Any Multi-Drug Resistant Organisms: None Reported Past Surgical History: Coronary Bypass/CABG, Heart Catheterization, Tonsillectomy Additional Past Surgical History / Comment(s): 2009 CABG 4 vessel, bilateral cataract removals with lens implants.lithoptripsy Past Anesthesia/Blood Transfusion Reactions: No Reported Reaction Smoking Status: Never smoker - Past Family History Mother Family Medical History: CVA/TIA Additional Family Medical History / Comment(s): Mother of a CVA at the age of 73 yrs. Father Family Medical History: CVA/TIA Additional Family Medical History / Comment(s): Father had a surgical procedure with a CVA post op. He 5 yrs later at the age of 66yrs. Medications and Allergies Home Medications Medication Instructions Recorded Confirmed Type Aspirin EC [Ecotrin] 81 mg PO HS 09/27/15 07/05/18 History Metoprolol Tartrate [Lopressor] 25 mg PO DAILY 07/05/18 07/05/18 History amLODIPine [Norvasc] 5 mg PO DAILY 07/05/18 07/05/18 History Allergies Allergy/AdvReac Type Severity Reaction Status Date / Time morphine AdvReac Hallucinati Verified 07/05/18 19:14 ons Physical Exam Vitals: Vital Signs Temp Pulse Pulse Resp BP Pulse Ox 07/07/18 11:27 98.2 F 87 17 134/60 99 07/07/18 05:00 98 F 112 H 18 154/57 97 07/06/18 20:27 98.6 F 90 16 145/78 95 Intake and Output 07/06/18 07/07/18 07/07/18 22:59 06:59 14:59 Intake Total 320 160 Output Total 550 700 Balance -230 -540 Intake: Intake, IV Titration 80 160 Amount Lactated Ringers 1,000 ml 80 160 @ 20 mls/hr IV .Q24H [facility] Rx#:[id number] Oral 240 Output: Urine 550 700 Other: Voiding Method Indwelling Catheter Indwelling Catheter Indwelling Catheter Results 07/05/18 15:21 07/05/18 15:21 Current Medications Generic Name Dose Route Start Last Admin Trade Name Freq PRN Reason Stop Dose Admin Acetaminophen 1,000 mg 07/05/18 18:41 Tylenol Tab PO Q6HR PRN Pain Hydrocodone Bitart/Acetaminophen 1 each 07/05/18 21:34 Culver 5-325 PO Q4HR PRN Pain Hydrocodone Bitart/Acetaminophen 2 each 07/05/18 21:34 07/07/18 06:14 Culver 5-325 PO 2 each Q4HR PRN Administration Pain Amlodipine Besylate 5 mg 07/06/18 09:00 07/07/18 09:53 Norvasc PO 5 mg DAILY [facility]AN[facility] Administration Enoxaparin Sodium 40 mg 07/05/18 20:45 07/07/18 09:51 Lovenox SQ Not Given DAILY MIRLANDE Fentanyl Citrate 50 mcg 07/07/18 06:20 Sublimaze IV 07/08/18 06:21 Q3M PRN Pain Control Hydromorphone HCl 0.5 mg 07/05/18 18:38 07/06/18 06:11 Dilaudid IVP 0.5 mg Q3HR PRN Administration Pain Lactated Ringer's 1,000 mls @ 20 mls/hr 07/05/18 20:45 07/06/18 20:38 Lactated Ringers IV 20 mls/hr .Q24H [facility]ANDE Administration Lactated Ringer's 1,000 mls @ 20 mls/hr 07/07/18 06:30 07/07/18 07:36 Lactated Ringers IV Not Given .Q24H [facility] Lorazepam 0.5 mg 07/05/18 20:30 07/06/18 21:13 Ativan PO 0.5 mg Q8HR PRN Administration Anxiety Metoprolol Tartrate 12.5 mg 07/05/18 21:00 07/07/18 09:53 Lopressor PO 12.5 mg BID MIRLANDE Administration Midazolam HCl 2 mg 07/07/18 06:20 Versed IV 07/08/18 06:21 ONCE PRN Anxiety Naloxone HCl 0.2 mg 07/05/18 14:21 Narcan IV Q2M PRN Opioid Reversal Intake and Output 07/06/18 07/07/18 07/07/18 22:59 06:59 14:59 Intake Total 320 160 Output Total 550 700 Balance -230 -540 Intake: Intake, IV Titration 80 160 Amount Lactated Ringers 1,000 ml 80 160 @ 20 mls/hr IV .Q24H [facility] Rx#:[id number] Oral 240 Output: Urine 550 700 Other: Voiding Method Indwelling Catheter Indwelling Catheter Indwelling Catheter 07/05/18 15:21 07/05/18 15:21
[2018-07-07] MEDS ORDERED: HYDROmorphone 0.5 MG/0.5 ML SYRINGE IVP PRN ×3 (13:03)
[2018-07-07] MEDS ORDERED: NALOXONE 0.4 MG/ML 1 ML VIAL IV PRN (13:03)
[2018-07-07] MEDS ORDERED: DIAZEPAM 5 MG TAB PO PRN (13:03)
[2018-07-07] MEDS ORDERED: hydrOXYzine PAMOATE 25 MG CAP PO PRN (13:03)
[2018-07-07] MEDS ORDERED: MAGNESIUM HYDROXIDE 2,400 MG/10 ML CUP PO PRN (13:03)
[2018-07-07 14:17] LABS: Basophils # (A) 0.1 k/uL (0-0.2); Basophils % (A) 1 %; Eosinophils # (A) 0.2 k/uL (0-0.7); Eosinophils % (A) 2 %; Lymphocytes # (A) 0.5 k/uL (1.0-4.8); Lymphocytes % (A) 6 %; MCH 31.6 pg (25.0-35.0); MCHC 31.9 g/dL (31.0-37.0); MCV 99.1 fL (80.0-100.0); Mean Platelet Volume 6.7; Monocytes # (A) 0.3 k/uL (0-1.0); Monocytes % (A) 4 %; Neutrophils # (A) 7.5 k/uL (1.3-7.7); Neutrophils % (A) 86 %; Platelet Count 153 k/uL (150-450); RBC 4.44 m/uL (3.80-5.40); RDW 12.6 % (11.5-15.5); WBC 8.6 k/uL (3.8-10.6)
[2018-07-07] MEDS: SODIUM CHLORIDE 0.9% 1,000 ML IV SCH (14:23)
[2018-07-07] MEDS ORDERED: LACTATED RINGERS 1,000 ML IV ONE ×2 (14:50→16:30)
[2018-07-07] MEDS ORDERED: PHENYLEPHRINE-0.9% NACL SYG 1 MG/10 ML SYRINGE ONE (15:26)
[2018-07-07] MEDS ORDERED: ONDANSETRON 4 MG/2 ML VIAL ONE (15:26)
[2018-07-07] MEDS ORDERED: KETAMINE 10 MG/ML 20 ML VIAL ONE (15:26)
[2018-07-07] MEDS ORDERED: SODIUM CHLORIDE 0.9% 100 ML with ceFAZolin 2,000 MG IV ONE ×2 (15:26)
[2018-07-07] MEDS ORDERED: MIDAZOLAM 2 MG/2 ML VIAL ONE (15:26)
[2018-07-07] MEDS ORDERED: ePHEDrine SULFATE/0.9% NACL/PF 50 MG/5 ML SYRINGE IV ONE (15:26)
--- NOTE | 2018-07-07 16:18 | P.OP ---
Date of Procedure: 07/07/18 Preoperative Diagnosis: Subcapital fracture right hip Postoperative Diagnosis: Subcapital fracture right hip Procedure(s) Performed: Right hip hemiarthroplasty Implants: Henning and nephew Polarstem size 4 standard Henning [employer] Nephew tandem unipolar, 43 mm Henning [employer] Nephew tandem unipolar 12/14 taper sleeve, -3 mm All components were press-fit. Anesthesia: spinal Surgeon: Bull Perez Copy Coordinator #1: Coco Andrews Copy Coordinator #2: Walter Sanchez Estimated Blood Loss (ml): 100 Pathology: other (Femoral head) Condition: stable Disposition: PACU Indications for Procedure: This is an 83-year-old female that fell and landed onto her right hip. She sustained a subcapital fracture right hip. After discussing the surgical nonsurgical treatment options with her family at length recommended a right hip hemiarthroplasty and informed consent was obtained. Operative Findings: Operative findings are consistent with a subcapital fracture of the right hip Description of Procedure: Patient was seen and evaluated in the preoperative area, consent was reviewed and the operative site was marked with a skin marker. Patient was then brought to the operating room and given 2 g of Ancef intravenously. A spinal anesthetic was administered by the anesthesia department. Patient was then placed in a lateral decubitus position and held with a Montral hip positioner. The bony prominences were well-padded and an axillary roll was placed. The hip was then prepped and draped in the usual sterile fashion. A universal timeout was then performed which confirmed the patient's name, surgical site, ALLERGIES, and procedure. A standard anterolateral approach the hip was performed. Skin and subcutaneous tissues were sharply incised with an incision centered over the tip of the greater trochanter. The incision was carefully dissected down to the fascia. The fascia was then split in line with skin incision and a Charnley retractor was gently placed. The abductors were then identified, and the anterior one third of the abductors were released off the trochanter and one large sleeve. The fracture hematoma was evacuated and the proximal femur was exposed by externally rotating the femur. The fracture site was readily visualized. Next , using an osteotomy guide, the proximal femur was osteotomized at the appropriate level of the above the lesser trochanter. This bone was then removed. Attention was then turned to the femoral head. Using a corkscrew, the femoral head was removed from the acetabulum without incident. The acetabulum was inspected, and found to have no significant arthrosis. Femoral head was then measured. Attention was then redirected to the femur. Proximal femur was re-exposed and a box osteotome was used to lateralize the proximal femur. A merchandising stock associate was then used to locate the femoral canal. Sequential broaching was then performed to the appropriate size. The calcar was then planed and trial head and neck were placed. The hip was then gently reduced. Leg lengths were checked and found to be equal. Hip was then taken through a full range of motion was stable throughout. The hip was then gently dislocated with the aid of a bone hook. The trial head and neck were then removed. The femoral broach was then inspected and found to have a secure fit. The broach was then removed. The hip was then copiously irrigated with antibiotic solution with a pulse lavage. Components were then opened and the femoral stem was then impacted into the proximal femur. The trunnion was cleaned and dried, and the femoral head and neck were then impacted. Hip was again gently reduced. Again leg lengths were checked and found to be equal, and the hip was taken through a full range of motion and found to be stable. The hip was again irrigated with pulsatile lavage, then followed by the Irrrisept solution. The abductors were then repaired through drill holes to the bone to the greater trochanter, utilizing #5 Ethibond suture. Next the fascia was repaired with #2 strata fix suture. The subcutaneous tissue was then repaired with 3-0 Vicryl. The subcuticular tissue was then repaired with 3-0 strata fix suture. Skin was then closed with Dermabond tape. A sterile dressing was then applied and the patient was transported to the recovery room in stable condition. Copy Coordinator JORGE Mcmanus was required due to the complexity of surgery the need for skilled vet assistant. She assisted with positioning the patient , draping the patient, retraction during the surgery, and closure of the wound.
--- NOTE | 2018-07-07 17:13 | XR ---
EXAMINATION TYPE: XR Hip Limited RT DATE OF EXAM: 07/07/2018 COMPARISON: 07/05/2018 HISTORY: Postop right hip replacement TECHNIQUE: Single AP view of the right hip is obtained. FINDINGS: Femoral component has been placed. Acetabular component articulates with the acetabulum. No acute fractures are evident. Postsurgical changes are within soft tissues. IMPRESSION: 1. No acute fractures post right hip replacement.
[2018-07-07] MEDS: ceFAZolin IN SWFI 2 GM/20 ML SYRINGE IVP SCH (17:25)
[2018-07-07] MEDS: SENNOSIDES-DOCUSATE SODIUM 1 EACH TAB PO SCH (20:59)
[2018-07-07] MEDS: METOPROLOL TARTRATE 25 MG TAB PO SCH (20:59)
[2018-07-07 23:22] LABS: Cholesterol 264 mg/dL (<200); HDL Cholesterol 66 mg/dL (40-60); LDL Cholesterol,Calculated 185 mg/dL (0-99); Triglycerides 64 mg/dL (<150)
[2018-07-08] MEDS: ceFAZolin IN SWFI 2 GM/20 ML SYRINGE IVP SCH (01:07)
--- NOTE | 2018-07-08 02:50 | PN ---
PROGRESS NOTE DATE OF SERVICE: 07/07/2018 PRESENTING COMPLAINT: Right hip fracture. INTERVAL HISTORY: This patient presented after a misstep resulting in a fall and fracture of the right hip. I saw this patient before surgery. She is doing fine. Comfortable, lying in bed. No chest pain or short of breath. Later I was informed by the daughters during surgery it has gone well and had spoken to the surgeon. REVIEW OF SYSTEMS: Done for constitutional, cardiovascular, GI, pulmonary; relevant findings as above. CURRENT MEDICATIONS: Reviewed that include IV fluids, Xarelto. EXAMINATION: Afebrile, pulse 94, blood pressure 133/63, pulse ox 96% on 2 L. GENERAL APPEARANCE: Lying in bed, awake. EYES: Pupils equal. Conjunctivae normal. NECK: JVD not raised. Mass not palpable. Respiratory effort normal. LUNGS: Clear. CARDIOVASCULAR: First and second sounds normal. No edema. ABDOMEN: Soft, nontender. Liver and spleen not palpable. MUSCULOSKELETAL: Limited range of motion, especially in the right hip. INVESTIGATIONS: White count 8.6, hemoglobin 14. ASSESSMENT: 1. Right hip fracture secondary to fall followed by hemiarthroplasty. 2. Coronary artery disease, prior history of bypass. 3. Essential hypertension. 4. Hyperlipidemia. 5. Anxiety, not otherwise specified. 6. Chronic insomnia. PLAN: Patient doing well. Continue current medication and treatment plan. I peaked in on the patient this evening. Patient is resting comfortably. Only briefly spoke to patient's daughter, Susanne. The patient otherwise is doing well. MMODL / IJN: [id number] /
[2018-07-08] MEDS: HYDROcodone/APAP 5-325MG 1 EACH TAB PO PRN ×3 (04:38→17:25)
[2018-07-08] MEDS: LACTATED RINGERS 1,000 ML IV SCH ×2 (04:58→20:33)
[2018-07-08] MEDS: RIVAROXABAN 10 MG TAB PO SCH (08:07)
[2018-07-08] MEDS: METOPROLOL TARTRATE 50 MG TAB PO SCH (08:07)
[2018-07-08] MEDS: amLODIPine 5 MG TAB PO SCH (08:07)
--- NOTE | 2018-07-08 09:29 | P.PN ---
Subjective Progress Note Date: 07/08/18 Principal diagnosis: Right femoral neck fracture s/p right hip hemiarthroplasty This is an 83-year-old female who fell in her home and sustained an injury to her right hip. On exam and x-ray in the emergency department she is found to have a subcapital fracture of the right hip on 07/06/18. Patient underwent a right hip hemiarthroplasty yesterday with Dr. Perez. Today is postoperative day #1. The patient states her pain is manageable, that her right hip is just sore. Per nurse, the patient had pain while transferring to the chair with therapy this morning and it took 45 minutes for patient to get into chair. Patient denies chest pain, shortness of breath, nausea, vomiting, dizziness. She has no new complaints this morning. Vital signs stable. Objective - Vital Signs Vital signs: Vital Signs Temp 97.6 F 07/08/18 04:54 Pulse 98 07/08/18 04:54 Resp 16 07/08/18 04:54 BP 129/61 07/08/18 04:54 Pulse Ox 96 07/08/18 04:54 Intake & Output 07/07/18 07/08/18 07/08/18 18:59 06:59 18:59 Intake Total 2060 1180 Output Total 450 500 Balance 1610 680 Intake: IV 1900 Intake, IV Titration 160 Amount Lactated Ringers 1,000 ml 160 @ 20 mls/hr IV .Q24H [facility] Rx#:[id number] Oral 1180 Output: Urine 350 500 Estimated Blood Loss 100 Other: Voiding Method Indwelling Catheter Indwelling Catheter - Exam On exam, the patient is sitting up in a chair in no acute distress. Patient is alert and oriented x3. On inspection of the right hip, there is a dressing in place which is clean, dry, and intact. Dressing is taken down, and the surgical incision shows no signs of infection; there is no erythema or drainage. Magana catheter in place. Lower extremity compression cuffs in place , calves are soft and nontender bilaterally. Patient has full range of motion of the ankles and toes bilaterally. Neurovascular is intact of the left lower extremities bilaterally. Dorsalis pedis pulse +2 bilaterally, brisk capillary refill of lower extremities bilaterally. - Labs CBC & Chem 7: 07/07/18 14:01 07/05/18 15:21 Labs: Abnormal Lab Results - Last 24 Hours (Table) 07/05/18 07/07/18 Range/Units 15:21 14:01 Lymphocytes # 0.5 L (1.0-4.8) k/uL Cholesterol 264 H (<200) mg/dL LDL Cholesterol, Calc 185 H (0-99) mg/dL HDL Cholesterol 66 H (40-60) mg/dL - Imaging and Cardiology Right hip xray 07/07/18 - Right hip hemiarthroplasty components in anatomic alignment. Assessment and Plan Assessment: Right femoral neck fracture status post right hip hemiarthroplasty Plan: - Weight-bearing as tolerated on the right lower extremity. Up with assistance , up with a walker. - Continue posterior hip precautions. Abductor pillow in place at all times except when up therapy. - Continue current pain management, Xarelto for anticoagulation. - Continue PT for gait and balance training. - Spoke with Case Management and we will plan for discharge to [facility] Tuesday.
[2018-07-08] MEDS: SODIUM CHLORIDE 0.9% 1,000 ML IV SCH ×2 (10:06→20:53)
[2018-07-08] MEDS: SENNOSIDES-DOCUSATE SODIUM 1 EACH TAB PO SCH (20:50)
[2018-07-08] MEDS: METOPROLOL TARTRATE 25 MG TAB PO SCH (20:51)
[2018-07-09] MEDS: HYDROcodone/APAP 5-325MG 1 EACH TAB PO PRN ×2 (00:11→11:02)
[2018-07-09] MEDS: LACTATED RINGERS 1,000 ML IV SCH ×2 (06:09→20:58)
--- NOTE | 2018-07-09 07:28 | PN ---
PROGRESS NOTE DATE OF SERVICE: 07/08/2018 PRESENTING COMPLAINT: Right hip fracture. INTERVAL HISTORY: This patient with a fall and fracture of the right hip status post replacement. Pain is controlled. Lying in bed. Did tolerate some diet. No cardiac symptoms. REVIEW OF SYSTEMS: Done for constitutional, cardiovascular, GI, pulmonary and findings as above. CURRENT MEDICATIONS: Reviewed that include Xarelto. PHYSICAL EXAMINATION: Temperature 97.7 pulse 76, respirations 16, blood pressure 122/59, pulse ox 97% on room air. GENERAL APPEARANCE: Lying in bed, comfortable. GENERAL APPEARANCE: More comfortable. EYES: Pupils equal. Conjunctivae normal. NECK: JVD not raised. Mass not palpable. Respiratory effort normal. LUNGS: Clear. CARDIOVASCULAR: First and second sounds normal. No edema. ABDOMEN: Soft, nontender. Liver and spleen not palpable. PSYCHIATRY: Alert and oriented x3. Mood and affect normal. INVESTIGATIONS: White count 8.6, hemoglobin 14. ASSESSMENT: 1. Right hip fracture secondary to fall followed by hemiarthroplasty. 2. Coronary artery prior by history, history of bypass. 3. Essential hypertension. 4. Hyperlipidemia. 5. Anxiety, not otherwise specified. 6. Chronic insomnia. PLAN: Stable, continue current medication and treatment plan Xarelto for anticoagulation. The patient may need rehab. Follow. MMODL / IJN: [id number] /
[2018-07-09] MEDS: METOPROLOL TARTRATE 50 MG TAB PO SCH (07:45)
[2018-07-09] MEDS: RIVAROXABAN 10 MG TAB PO SCH (07:45)
[2018-07-09] MEDS: amLODIPine 5 MG TAB PO SCH (07:45)
--- NOTE | 2018-07-09 09:27 | P.PN ---
Subjective Progress Note Date: 07/09/18 Principal diagnosis: Right femoral neck fracture s/p right hip hemiarthroplasty This is an 83-year-old female who fell in her home and sustained an injury to her right hip. On exam and x-ray in the emergency department she is found to have a subcapital fracture of the right hip on 07/06/18. Patient underwent a right hip hemiarthroplasty yesterday with Dr. Perez. Today is postoperative day #2. The patient states she has been up with therapy today. Per nurse, patient has been much more successful with transfers last night and this morning. Patient denies chest pain, shortness of breath, nausea , vomiting, dizziness. Patient states she does not think she has had a BM post- operatively. Denies stomach pain. States she is tolerating her diet well. Patient states she is experiencing pain in right hip, but it is manageable on current pain regimen. She has no new complaints this morning. Vital signs stable. Objective - Vital Signs Vital signs: Vital Signs Temp 98.7 F 07/09/18 05:00 Pulse 103 H 07/09/18 05:00 Resp 16 07/09/18 05:00 BP 126/57 07/09/18 05:00 Pulse Ox 96 07/09/18 05:00 Intake & Output 07/08/18 07/09/18 07/09/18 18:59 06:59 18:59 Intake Total 1370 Output Total 700 1300 Balance -700 70 Intake: IV 780 Sodium Chloride 0.9% 1, 780 000 ml @ 65 mls/hr IV . [id number] [facility] Rx#:[id number] Oral 590 Output: Urine 700 1300 Other: Voiding Method Indwelling Catheter Indwelling Catheter - Exam On exam, the patient is sitting up in a chair in no acute distress. Patient is alert and oriented x3. On inspection of the right hip, there is a dressing in place which is clean, dry, and intact. Dressing is taken down, and the surgical incision shows no signs of infection; there is no erythema or drainage. Magana catheter in place. Calves are soft and nontender bilaterally. Patient has full range of motion of the ankles and toes bilaterally. Neurovascular is intact of the right lower extremity. Dorsalis pedis pulse +2 bilaterally, brisk capillary refill of great toes bilaterally. - Labs CBC & Chem 7: 07/07/18 14:01 07/05/18 15:21 Assessment and Plan Assessment: Right femoral neck fracture status post right hip hemiarthroplasty Plan: - Weight-bearing as tolerated on the right lower extremity. Up with assistance , up with a walker. - Continue posterior hip precautions. Abductor pillow in place at all times except when up therapy. - Continue current pain management, Xarelto for anticoagulation. - Continue PT for gait and balance training. - Will plan to D/C catheter today. - Spoke with Case Management and we will plan for discharge to [facility] Tuesday or Tuesday.
[2018-07-09] MEDS: SODIUM CHLORIDE 0.9% 1,000 ML IV SCH (11:50)
[2018-07-09 13:25] LABS: Basophils % (A) 1 %; Eosinophils # (A) 0.3 k/uL (0-0.7); Eosinophils % (A) 4 %; HCT 35.1 % (34.0-46.0); HGB 11.4 gm/dL (11.4-16.0); Lymphocytes # (A) 0.4 k/uL (1.0-4.8); Lymphocytes % (A) 6 %; MCH 32.2 pg (25.0-35.0); MCHC 32.5 g/dL (31.0-37.0); Mean Platelet Volume 7.2; Monocytes # (A) 0.3 k/uL (0-1.0); Monocytes % (A) 5 %; Neutrophils # (A) 5.9 k/uL (1.3-7.7); Neutrophils % (A) 83 %; Platelet Count 174 k/uL (150-450); RBC 3.55 m/uL (3.80-5.40); RDW 12.6 % (11.5-15.5); WBC 7.1 k/uL (3.8-10.6)
[2018-07-09] MEDS: LORazepam 0.5 MG TAB PO PRN (16:18)
[2018-07-09] MEDS: ACETAMINOPHEN TAB 500 MG TAB PO PRN (18:50)
[2018-07-09] MEDS: QUEtiapine 25 MG TAB PO SCH (21:16)
[2018-07-09] MEDS: SENNOSIDES-DOCUSATE SODIUM 1 EACH TAB PO SCH (21:16)
[2018-07-09] MEDS: METOPROLOL TARTRATE 25 MG TAB PO SCH (21:16)
[2018-07-10] MEDS: ACETAMINOPHEN TAB 500 MG TAB PO PRN ×2 (01:24→20:29)
--- NOTE | 2018-07-10 01:49 | PN ---
PROGRESS NOTE DATE OF SERVICE: July 09, 2018. PRESENTING COMPLAINT: Right hip fracture. INTERVAL HISTORY: The patient had a fall and fracture right hip status post replacement. Doing better today. Using a walker. Up to the bathroom. Saw the patient this afternoon. The patient had some element of hallucinations and did get odd dreams last night. Otherwise, did tolerate some diet. Rather anxious. REVIEW OF SYSTEMS: Done for constitutional, cardiovascular, GI, pulmonary, musculoskeletal. CURRENT MEDICATIONS: Reviewed that include Xarelto. PHYSICAL EXAMINATION: Temperature 98.2, pulse 72, respiratory rate 16, blood pressure 134/82, pulse ox 97 percent. GENERAL APPEARANCE: Lying in bed, comfortable, awake. EYES: Pupils are equal. Conjunctivae normal. NECK: JVD not raised. Mass not palpable. RESPIRATORY: Effort normal. LUNGS are clear. CARDIOVASCULAR: 1st and 2nd sounds normal. No edema. ABDOMEN: Soft, nontender. Liver and spleen not palpable. PSYCHIATRY: Answering questions appropriately. There were episodes earlier today when patient was delirious. INVESTIGATIONS: White count 10.1, hemoglobin 11.4. ASSESSMENT: 1. Right hip fracture secondary to fall followed by hemiarthroplasty. 2. Coronary artery disease, prior history of bypass. 3. Essential hypertension. 4. Hyperlipidemia. 5. Anxiety not otherwise specified. 6. Chronic insomnia. 7. Acute delirium, multifactorial. PLAN: Spoke to the nurse and reassured the patient. Also spoke to patient's daughter, Susanne, and explained to her, there were multiple factors in her delirium including a new place, surgery, pain medications and underlying anxiety disorder. Will give Seroquel 25 mg starting tonight. The dose may be cut back and discontinue down the road depending on how the patient does and adjustment of the medication will be made upper down depending on patient's response. MMODL / IJN: [id number] /
[2018-07-10] MEDS: LORazepam 0.5 MG TAB PO PRN (04:16)
[2018-07-10] MEDS: SODIUM CHLORIDE 0.9% 1,000 ML IV SCH ×2 (04:53→20:30)
[2018-07-10] MEDS: LACTATED RINGERS 1,000 ML IV SCH ×2 (04:54→20:31)
--- NOTE | 2018-07-10 08:55 | P.DS ---
Providers Date of admission: 07/05/18 17:04 Expected date of discharge: 07/10/18 Attending physician: Bull Perez Consults: 07/05/18 14:25 Consult Physician Urgent Consulting Provider: Isidro Barrera Consult Reason/Comments: Medical clearance for orthopedic surgery. Do you want consulting provider notified?: Yes 07/06/18 16:20 Consult Physician Routine Consulting Provider: Fabien Schafer Consult Reason/Comments: cardiology clearance Do you want consulting provider notified?: Yes Primary care physician: Ba Corbin - Discharge Diagnosis(es) (1) Fall Current Visit: Yes Status: Acute (2) History of coronary artery bypass surgery Current Visit: Yes Status: Acute (3) Subcapital fracture of right hip Current Visit: Yes Status: Acute Hospital Course: This is a 83-year-old female who sustained a subcapital fracture of the right hip after a fall on 07/05/2018. The patient presents for evaluation. After discussion and consideration patient elects to proceed with right hip hemiarthroplasty. The patient is seen preoperatively by Dr. Perez and medically cleared for surgery by internal medicine and cardiology. Patient is admitted to [facility] on 07/05/2018 and right hip hemiarthroplasty is performed on 07/07/2018. The procedures performed without complication or sequelae. The patient is doing well postoperatively. Labs and vital signs are stable on day of discharge. On day of discharge patient's hip incision is healing well. There is minimal erythema. There is no drainage noted at this time. There is minimal soft tissue swelling to the hip and thigh. Patient has full foot and ankle motion without difficulty or pain. Calf is soft and nontender to palpation. Neurovascular status to the right lower extremity is intact. Patient is discharged to rehab in good condition. Please see med rec for accurate list of home medications. Plan - Discharge Summary Discharge Rx Participant: No New Discharge Prescriptions: New HYDROcodone/APAP 5-325MG [[place] 5-325] 1 - 2 tab PO Q4-6H PRN #84 tab PRN Reason: Pain Rivaroxaban [Xarelto] 10 mg PO DAILY #35 tab Sennosides [Senokot] 1 tab PO BID #60 tablet No Action Aspirin EC [Ecotrin] 81 mg PO HS amLODIPine [Norvasc] 5 mg PO DAILY Metoprolol Tartrate [Lopressor] 25 mg PO DAILY Discharge Medication List Aspirin EC [Ecotrin] 81 mg PO HS 09/27/15 [History] Metoprolol Tartrate [Lopressor] 25 mg PO DAILY 07/05/18 [History] amLODIPine [Norvasc] 5 mg PO DAILY 07/05/18 [History] HYDROcodone/APAP 5-325MG [[place] 5-325] 1 - 2 tab PO Q4-6H PRN #84 tab 07/07/18 [ Rx] Rivaroxaban [Xarelto] 10 mg PO DAILY #35 tab 07/07/18 [Rx] Sennosides [Senokot] 1 tab PO BID #60 tablet 07/07/18 [Rx] Follow up Appointment(s)/Referral(s): Ba Corbin DO [Primary Care Provider] - 1-2 days Bull Perez DO [Doctor of Osteopathic Medicine] - 2 Weeks Activity/Diet/Wound Care/Special Instructions: Weightbearing as tolerated with a walker. Leave dressing intact. Dressing may be removed by home care nurse in 10 days. May shower with dressing on. Continue hip precations with abductor pillow for 6 weeks. Follow-up with [facility] in 2 weeks, please call with any questions or concerns [phone]. Discharge Disposition: TRANSFER TO SNF/ECF
[2018-07-10] MEDS: RIVAROXABAN 10 MG TAB PO SCH (09:58)
[2018-07-10] MEDS: METOPROLOL TARTRATE 50 MG TAB PO SCH (09:58)
[2018-07-10] MEDS: amLODIPine 5 MG TAB PO SCH (09:58)
[2018-07-10] MEDS: HYDROcodone/APAP 5-325MG 1 EACH TAB PO PRN (13:10)
[2018-07-10] MEDS: SENNOSIDES-DOCUSATE SODIUM 1 EACH TAB PO SCH (20:29)
[2018-07-10] MEDS: QUEtiapine 25 MG TAB PO SCH (20:30)
[2018-07-10] MEDS: METOPROLOL TARTRATE 25 MG TAB PO SCH (20:30)
[2018-07-11] MEDS: ACETAMINOPHEN TAB 500 MG TAB PO PRN ×3 (03:34→20:30)
[2018-07-11] MEDS: LACTATED RINGERS 1,000 ML IV SCH ×2 (05:02→20:31)
--- NOTE | 2018-07-11 05:25 | PN ---
PROGRESS NOTE DATE OF SERVICE: 07/10/2018 PRESENTING COMPLAINT: Right hip fracture. INTERVAL HISTORY: This patient was seen by me yesterday on 07/10/2018. Status post fall and right hip fracture and replacement. The patient started Seroquel last night, slept very well last night. I spoke to the nurse. This morning patient is chirpy. Did tolerate her diet comfortable, awaiting transfer to the [facility]. REVIEW OF SYSTEMS: Done for constitutional, cardiovascular, GI, pulmonary; relevant findings as above. CURRENT MEDICATIONS: Current medications are reviewed that include Xarelto, Seroquel. PHYSICAL EXAMINATION: On examination, temperature 97.8, pulse 109, respirations 16, blood pressure 114/65, pulse ox 94% on room air. GENERAL APPEARANCE: Lying in bed, comfortable, awake. EYES: Pupils equal. Conjunctivae normal. NECK: JVD not raised. Mass not palpable. RESPIRATORY: Effort normal. Lungs are clear. CARDIOVASCULAR: First and second sounds normal. No edema. ABDOMEN: Soft, nontender. Liver and spleen not palpable. PSYCHIATRY: Awake, answering questions appropriately. INVESTIGATIONS: White count 7.1, hemoglobin 11.4. ASSESSMENT: 1. Right hip fracture secondary to fall followed by hemiarthroplasty. 2. Coronary artery disease, prior history of bypass. 3. Essential hypertension. 4. Hyperlipidemia. 5. Anxiety, not otherwise specified. 6. Chronic insomnia. 7. Acute delirium, multifactorial, improved. PLAN: The patient should continue on Seroquel, other medications are stable. Any further input from Cardiology appreciated. MMODL / IJN: [id number] /
[2018-07-11] MEDS: amLODIPine 5 MG TAB PO SCH (09:16)
[2018-07-11] MEDS: RIVAROXABAN 10 MG TAB PO SCH (09:16)
[2018-07-11] MEDS: METOPROLOL TARTRATE 50 MG TAB PO SCH (09:16)
[2018-07-11] MEDS: SODIUM CHLORIDE 0.9% 1,000 ML IV SCH (13:24)
[2018-07-11] MEDS: SENNOSIDES-DOCUSATE SODIUM 1 EACH TAB PO SCH (20:30)
[2018-07-11] MEDS: QUEtiapine 25 MG TAB PO SCH (20:31)
[2018-07-11] MEDS: METOPROLOL TARTRATE 25 MG TAB PO SCH (20:31)
--- NOTE | 2018-07-11 23:03 | PN ---
PROGRESS NOTE DATE OF SERVICE: 07/11/2018. PRESENTING COMPLAINT: Right hip fracture. INTERVAL HISTORY: Patient is status post fall, right hip fracture and replacement. Delirium is well controlled. Did sleep well last night. Comfortable. Awaiting transfer to the ECF. Pain is controlled. REVIEW OF SYSTEMS: Done for constitutional, cardiovascular, GI, pulmonary, musculoskeletal; relevant findings as above. CURRENT MEDICATIONS: Reviewed, that include Xarelto and Seroquel. PHYSICAL EXAMINATION: Temperature, pulse 70, respirations 16, blood pressure 104/56, pulse ox 96% on room air. GENERAL APPEARANCE: Lying in bed, comfortable. Awake. EYES: Pupils equal. Conjunctivae normal. NECK: JVD not raised. Mass not palpable. Respiratory effort normal. LUNGS: Clear. CARDIOVASCULAR: 1st and 2nd heart sounds. No edema. ABDOMEN: Soft nontender. Liver and spleen not palpable. PSYCHIATRY: Awake, answering questions appropriately. INVESTIGATIONS: No blood work from today. ASSESSMENT: 1. Right hip fracture secondary to fall, followed by hemiarthroplasty. 2. Coronary artery disease, prior history of bypass. 3. Essential hypertension. 4. Hyperlipidemia. 5. Anxiety, not otherwise specified. 6. Chronic insomnia, now doing well with Seroquel. 7. Acute delirium multifactorial, doing better. PLAN: Patient is stable on the current medications. Awaiting transfer to the ECF. I spoke to the daughter briefly on the phone and gave an update. No further questions. MMODL / IJN: [id number] /
[2018-07-12] MEDS: ACETAMINOPHEN TAB 500 MG TAB PO PRN ×2 (05:11→12:32)
[2018-07-12] MEDS: SODIUM CHLORIDE 0.9% 1,000 ML IV SCH ×2 (05:16→16:38)
[2018-07-12] MEDS: METOPROLOL TARTRATE 50 MG TAB PO SCH (08:45)
[2018-07-12] MEDS: RIVAROXABAN 10 MG TAB PO SCH (08:45)
[2018-07-12] MEDS: amLODIPine 5 MG TAB PO SCH (08:45)
[2018-07-12] MEDS: HYDROcodone/APAP 5-325MG 1 EACH TAB PO PRN (08:45)
[2018-07-12 10:48] VITALS: BMI 23.4
--- NOTE | 2018-07-12 11:01 | P.DS ---
Providers Date of admission: 07/05/18 17:04 Expected date of discharge: 07/12/18 Attending physician: Bull Perez Consults: 07/05/18 14:25 Consult Physician Urgent Consulting Provider: Isidro Barrera Consult Reason/Comments: Medical clearance for orthopedic surgery. Do you want consulting provider notified?: Yes 07/06/18 16:20 Consult Physician Routine Consulting Provider: Fabien Schafer Consult Reason/Comments: cardiology clearance Do you want consulting provider notified?: Yes Primary care physician: Ba Corbin - Discharge Diagnosis(es) (1) Fall Current Visit: Yes Status: Acute (2) History of coronary artery bypass surgery Current Visit: Yes Status: Acute (3) Subcapital fracture of right hip Current Visit: Yes Status: Acute Hospital Course: This is a 83-year-old female who sustained a subcapital fracture of the right hip after a fall on 07/05/2018. The patient presents for evaluation. After discussion and consideration patient elects to proceed with right hip hemiarthroplasty. The patient is seen preoperatively by Dr. Perez and medically cleared for surgery by internal medicine and cardiology. Patient is admitted to [facility] on 07/05/2018 and right hip hemiarthroplasty is performed on 07/07/2018. The procedures performed without complication or sequelae. The patient is doing well postoperatively. Labs and vital signs are stable on day of discharge. On day of discharge patient's hip incision is healing well. There is minimal erythema. There is no drainage noted at this time. There is minimal soft tissue swelling to the hip and thigh. Patient has full foot and ankle motion without difficulty or pain. Calf is soft and nontender to palpation. Neurovascular status to the right lower extremity is intact. Patient is discharged to rehab in good condition. Please see med rec for accurate list of home medications. Plan - Discharge Summary Discharge Rx Participant: No New Discharge Prescriptions: New HYDROcodone/APAP 5-325MG [[place] 5-325] 1 - 2 tab PO Q4-6H PRN #84 tab PRN Reason: Pain Sennosides [Senokot] 1 tab PO BID #60 tablet Rivaroxaban [Xarelto] 10 mg PO DAILY #32 tab Acetaminophen Tab [Tylenol] 1,000 mg PO Q6HR PRN tab PRN Reason: Pain Metoprolol Tartrate [Lopressor] 25 mg PO HS tab Metoprolol Tartrate [Lopressor] 50 mg PO DAILY tab QUEtiapine [SEROquel] 25 mg PO HS tab Continue Aspirin EC [Ecotrin Low Dose] 81 mg PO HS amLODIPine [Norvasc] 5 mg PO DAILY Discontinued Metoprolol Tartrate [Lopressor] 25 mg PO DAILY Discharge Medication List Aspirin EC [Ecotrin Low Dose] 81 mg PO HS 09/27/15 [History] amLODIPine [Norvasc] 5 mg PO DAILY 07/05/18 [History] HYDROcodone/APAP 5-325MG [[place] 5-325] 1 - 2 tab PO Q4-6H PRN #84 tab 07/07/18 [ Rx] Sennosides [Senokot] 1 tab PO BID #60 tablet 07/07/18 [Rx] Acetaminophen Tab [Tylenol] 1,000 mg PO Q6HR PRN tab 07/10/18 [Rx] Metoprolol Tartrate [Lopressor] 25 mg PO HS tab 07/10/18 [Rx] Metoprolol Tartrate [Lopressor] 50 mg PO DAILY tab 07/10/18 [Rx] QUEtiapine [SEROquel] 25 mg PO HS tab 07/10/18 [Rx] Rivaroxaban [Xarelto] 10 mg PO DAILY #32 tab 07/10/18 [Rx] Follow up Appointment(s)/Referral(s): Ba Corbin DO [Primary Care Provider] - 1-2 days Bull Perez DO [Doctor of Osteopathic Medicine] - 2 Weeks Activity/Diet/Wound Care/Special Instructions: Weightbearing as tolerated with a walker. Leave dressing intact. Dressing may be removed by home care nurse in 10 days. May shower with dressing on. Continue hip precations with abductor pillow for 6 weeks. Follow-up with [facility] in 2 weeks, please call with any questions or concerns [phone]. Discharge Disposition: TRANSFER TO SNF/ECF
[2018-07-12 12:28] VITALS: BP 133/60; PULSE 80; TEMP 98.3
[2018-07-12 16:54] VITALS: RESP 16
--- NOTE | 2018-07-13 05:42 | PN ---
PROGRESS NOTE DATE OF SERVICE: 07/12/2018 PRESENTING COMPLAINT: Right hip fracture. INTERVAL HISTORY: Patient was seen by me yesterday late afternoon on the floor, stable, pain is controlled. Tolerating diet. Awaiting transfer to the [facility]. Tolerating a diet. No new issues. REVIEW OF SYSTEMS: Done for constitutional, cardiovascular, GI, pulmonary, musculoskeletal, psychiatry; relevant findings as above. CURRENT MEDICATIONS: Current medications are reviewed. PHYSICAL EXAMINATION: On examination, temperature 98.3, pulse 80, respiration 17, blood pressure 133/60, pulse ox 100% on room air. GENERAL APPEARANCE: Lying in bed, comfortable, awake. EYES: Pupils equal. Conjunctivae normal. NECK: JVD not raised. Mass not palpable. RESPIRATORY: Effort . Lungs are clear. CARDIOVASCULAR: First and second sounds normal. No edema. ABDOMEN: Soft, nontender. Liver and spleen not palpable. PSYCHIATRY: Alert and oriented x3. Mood and affect normal. INVESTIGATIONS: No blood work from today. ASSESSMENT: 1. Right hip fracture secondary to fall followed by hemiarthroplasty. 2. Coronary artery disease prior to history of bypass. 3. Essential hypertension. 4. Hyperlipidemia. 5. Anxiety, not otherwise specified. 6. Chronic insomnia, doing better with Seroquel. 7. Acute delirium, multifactorial, improved. PLAN: Care was discussed with the patient. The patient educated to try to take a nap in the afternoon and not save all the sleep for the night. The patient otherwise from my standpoint is stable. MMODL / IJN: [id number] /
== END 2018-07-12 17:20 | DRG 470 ==
LOC: EC 11:30 → 4SSUR 17:04 → 3NMEDONC 17:44
PROVIDERS: ADMIT Orthopaedic Surgery; ATTEND Orthopaedic Surgery
PROC: 0SRR01A Replacement of Right Hip Joint, Femoral Surface with Metal Synthetic Substitute, Uncemented, Open Approach (ICD-10-PCS; principal; 2018-07-07 15:30)
DX: S72.011A Unspecified intracapsular fracture of right femur, initial encounter for closed fracture (principal); F05 Delirium due to known physiological condition; I27.20 Pulmonary hypertension, unspecified; S50.311A Abrasion of right elbow, initial encounter; S60.512A Abrasion of left hand, initial encounter; D72.829 Elevated white blood cell count, unspecified; E78.5 Hyperlipidemia, unspecified; I25.10 Atherosclerotic heart disease of native coronary artery without angina pectoris; I10 Essential (primary) hypertension; L40.9 Psoriasis, unspecified; F41.9 Anxiety disorder, unspecified; F51.04 Psychophysiologic insomnia; I25.2 Old myocardial infarction; Z79.82 Long term (current) use of aspirin; Z79.899 Other long term (current) drug therapy; Z87.442 Personal history of urinary calculi; Z95.1 Presence of aortocoronary bypass graft; Z86.73 Personal history of transient ischemic attack (TIA), and cerebral infarction without residual deficits; Z98.42 Cataract extraction status, left eye; Z98.41 Cataract extraction status, right eye; Z96.1 Presence of intraocular lens; Z88.5 Allergy status to narcotic agent; W10.1XXA Fall (on)(from) sidewalk curb, initial encounter; Y92.59 Other trade areas as the place of occurrence of the external cause; Z82.3 Family history of stroke
CPT/HCPCS: 36415; 71045; 73501; 73521; 80053; 80061; 85025; 85610; 85730; 88305; 88311; 93005; 93306; 94760; 96361; 96374; 96376; 99284

== ENCOUNTER 2020-03-26 18:15 | Inpatient (IN) | payer MEDICARE ==
[2020-03-26] MEDS ORDERED: HYDROmorphone 0.5 MG/0.5 ML SYRINGE IVP STA (18:56)
--- NOTE | 2020-03-26 18:56 | ED ---
Abdominal Pain HPI - General Chief Complaint: Abdominal Pain Stated Complaint: right side pain Time Seen by Provider: 03/26/20 18:50 Source: patient Mode of arrival: ambulatory Limitations: no limitations - History of Present Illness Initial Comments: Patient is a 84-year-old female presenting to the emergency department with a chief complaint of abdominal pain. Patient reports the symptoms began early this morning around 8 AM. States most of the pain is located in the right lower quadrant region. She states the pain is sharp in nature and exacerbated with palpation to the region. Does report nausea but no vomiting or diarrhea. She reports the pain is exacerbated with ambulation. Denies any hematuria, hematochezia or melena. Denies any chest pain shortness of breath and back pain. Denies any vaginal or urinary symptoms. Does report chills but denies any fevers at home. - Related Data Home Medications Medication Instructions Recorded Confirmed Aspirin EC [Ecotrin Low Dose] 81 mg PO HS 09/27/15 07/05/18 amLODIPine [Norvasc] 5 mg PO DAILY 07/05/18 07/05/18 Previous Rx's Medication Instructions Recorded HYDROcodone/APAP 5-325MG [[place] 1 - 2 tab PO Q4-6H PRN #84 tab 07/07/18 5-325] Sennosides [Senokot] 1 tab PO BID #60 tablet 07/07/18 Acetaminophen Tab [Tylenol] 1,000 mg PO Q6HR PRN tab 07/10/18 Metoprolol Tartrate [Lopressor] 25 mg PO HS tab 07/10/18 Metoprolol Tartrate [Lopressor] 50 mg PO DAILY tab 07/10/18 QUEtiapine [SEROquel] 25 mg PO HS tab 07/10/18 Rivaroxaban [Xarelto] 10 mg PO DAILY #32 tab 07/10/18 Allergies Allergy/AdvReac Type Severity Reaction Status Date / Time morphine AdvReac Hallucinati Verified 03/26/20 18:24 ons Review of Systems ROS Statement: Those systems with pertinent positive or pertinent negative responses have been documented in the HPI. ROS Other: All systems not noted in ROS Statement are negative. Past Medical History Past Medical History: Coronary Artery Disease (CAD), Chest Pain / Angina, Hyperlipidemia, Hypertension, Myocardial Infarction ([place]), Skin Disorder Additional Past Medical History / Comment(s): TIA-pt states never confirmed, psoriasis.kidney stones, past stress test Last Myocardial Infarction Date:: 2009 History of Any Multi-Drug Resistant Organisms: None Reported Past Surgical History: Coronary Bypass/CABG, Heart Catheterization, Orthopedic Surgery, Tonsillectomy Additional Past Surgical History / Comment(s): 2010 CABG 4 vessel, bilateral cataract removals with lens implants.lithoptripsy. Right hip Past Anesthesia/Blood Transfusion Reactions: No Reported Reaction Past Psychological History: Anxiety Smoking Status: Never smoker Past Alcohol Use History: None Reported Past Drug Use History: None Reported - Past Family History Mother Family Medical History: CVA/TIA Additional Family Medical History / Comment(s): Mother of a CVA at the age of 73 yrs. Father Family Medical History: CVA/TIA Additional Family Medical History / Comment(s): Father had a surgical procedure with a CVA post op. He 5 yrs later at the age of 66yrs. General Exam Limitations: no limitations General appearance: alert Head exam: Present: atraumatic, normocephalic, normal inspection Eye exam: Present: normal appearance, PERRL, EOMI Pupils: Present: normal accommodation ENT exam: Present: normal exam, normal oropharynx, mucous membranes moist, TM's normal bilaterally, normal external ear exam Neck exam: Present: normal inspection, full ROM. Absent: tenderness Respiratory exam: Present: normal lung sounds bilaterally. Absent: respiratory distress, wheezes Cardiovascular Exam: Present: regular rate, normal rhythm, normal heart sounds GI/Abdominal exam: Present: soft, tenderness (Positive McBurney point tenderness. Positive Rovsing.). Absent: distended, guarding, rebound, rigid Extremities exam: Present: normal inspection, full ROM, normal capillary refill, other (+2 dorsalis pedis and posterior tibials bilaterally.). Absent: tenderness Back exam: Present: normal inspection, full ROM. Absent: tenderness, CVA t enderness (R), CVA tenderness (L) Neurological exam: Present: alert, oriented X3, normal gait Psychiatric exam: Present: normal affect, normal mood Skin exam: Present: warm, dry, intact, normal color Course Vital Signs 03/26/20 03/26/20 18:20 21:00 Temperature 97.9 F Pulse Rate 97 89 Respiratory 16 16 Rate Blood Pressure 140/85 140/59 O2 Sat by Pulse 95 97 Oximetry Medical Decision Making - Medical Decision Making Patient is 84-year-old female presenting to the emergency department with a chief complaint of abdominal pain. On physical examination, patient does have McBurney point tenderness. CBC shows leukocytosis. CMP does reveal elevated BUN at 26 which I suspect is secondary to dehydration and that also explained a lactate of 2.3. Hyperkalemia at 5.5. Repeat potassium pending. Patient was given IV fluids and analgesia. UA shows elevated white blood cells, leukocyte esterase and positive nitrates. There is some blood also. Patient could possibly have a septic stone. CT of the abdomen and pelvis reveals bilateral hydronephrosis, although the left side appears to be from a previous obstruction. Do right-sided renal hydronephrosis secondary to a 1 cm calculus at the right UVJ. Ears also hydroureter. Patient started on Rocephin for urinary tract infection. She will be admitted for further medical measure. Case discussed with Admitting is Dr [facility]erta [facility] on consult - Lab Data Result diagrams: 03/26/20 19:35 03/26/20 19:35 Lab Results 03/26/20 03/26/20 03/26/20 Range/Units 19:35 19:35 19:35 WBC 13.1 H (3.8-10.6) k/uL RBC 4.46 (3.80-5.40) m/uL Hgb 13.9 (11.4-16.0) gm/dL Hct 44.0 (34.0-46.0) % MCV 98.5 (80.0-100.0) fL MCH 31.2 (25.0-35.0) pg MCHC 31.6 (31.0-37.0) g/dL RDW 12.5 (11.5-15.5) % Plt Count 227 (150-450) k/uL Neutrophils % 89 % Lymphocytes % 4 % Monocytes % 5 % Eosinophils % 1 % Basophils % 0 % Neutrophils # 11.7 H (1.3-7.7) k/uL Lymphocytes # 0.6 L (1.0-4.8) k/uL Monocytes # 0.6 (0-1.0) k/uL Eosinophils # 0.1 (0-0.7) k/uL Basophils # 0.1 (0-0.2) k/uL Sodium 135 L (137-145) mmol/L Potassium 5.5 H (3.5-5.1) mmol/L Chloride 104 (98-107) mmol/L Carbon Dioxide 23 (22-30) mmol/L Anion Gap 8 mmol/L BUN 26 H (7-17) mg/dL Creatinine 1.04 (0.52-1.04) mg/dL Est GFR (CKD-EPI)AfAm 57 (>60 ml/min/1.73 sqM) Est GFR (CKD-EPI)NonAf 50 (>60 ml/min/1.73 sqM) Glucose 140 H (74-99) mg/dL Plasma Lactic Acid Giuseppe (0.7-2.0) mmol/L Calcium 9.6 (8.4-10.2) mg/dL Total Bilirubin 1.2 (0.2-1.3) mg/dL AST 47 H (14-36) U/L ALT 23 (4-34) U/L Alkaline Phosphatase 79 (38-126) U/L Troponin I <0.012 (0.000-0.034) ng/mL Total Protein 7.3 (6.3-8.2) g/dL Albumin 4.3 (3.5-5.0) g/dL Lipase 265 (23-300) U/L Urine Color Urine Appearance (Clear) Urine pH (5.0-8.0) Ur Specific [place] (1.001-1.035) Urine Protein (Negative) Urine Glucose (UA) (Negative) Urine Ketones (Negative) Urine Blood (Negative) Urine Nitrite (Negative) Urine Bilirubin (Negative) Urine Urobilinogen (<2.0) mg/dL Ur Leukocyte Esterase (Negative) Urine RBC (0-5) /hpf Urine WBC (0-5) /hpf Urine WBC Clumps (None) /hpf Ur Squamous Epith Cells (0-4) /hpf Urine Bacteria (None) /hpf Urine Mucus (None) /hpf 03/26/20 03/26/20 Range/Units 19:35 20:34 WBC (3.8-10.6) k/uL RBC (3.80-5.40) m/uL Hgb (11.4-16.0) gm/dL Hct (34.0-46.0) % MCV (80.0-100.0) fL MCH (25.0-35.0) pg MCHC (31.0-37.0) g/dL RDW (11.5-15.5) % Plt Count (150-450) k/uL Neutrophils % % Lymphocytes % % Monocytes % % Eosinophils % % Basophils % % Neutrophils # (1.3-7.7) k/uL Lymphocytes # (1.0-4.8) k/uL Monocytes # (0-1.0) k/uL Eosinophils # (0-0.7) k/uL Basophils # (0-0.2) k/uL Sodium (137-145) mmol/L Potassium (3.5-5.1) mmol/L Chloride (98-107) mmol/L Carbon Dioxide (22-30) mmol/L Anion Gap mmol/L BUN (7-17) mg/dL Creatinine (0.52-1.04) mg/dL Est GFR (CKD-EPI)AfAm (>60 ml/min/1.73 sqM) Est GFR (CKD-EPI)NonAf (>60 ml/min/1.73 sqM) Glucose (74-99) mg/dL Plasma Lactic Acid Giuseppe 2.3 H* (0.7-2.0) mmol/L Calcium (8.4-10.2) mg/dL Total Bilirubin (0.2-1.3) mg/dL AST (14-36) U/L ALT (4-34) U/L Alkaline Phosphatase (38-126) U/L Troponin I (0.000-0.034) ng/mL Total Protein (6.3-8.2) g/dL Albumin (3.5-5.0) g/dL Lipase (23-300) U/L Urine Color Light Yellow Urine Appearance Cloudy H (Clear) Urine pH 6.0 (5.0-8.0) Ur Specific [place] 1.014 (1.001-1.035) Urine Protein 1+ H (Negative) Urine Glucose (UA) Negative (Negative) Urine Ketones Negative (Negative) Urine Blood Moderate H (Negative) Urine Nitrite Positive H (Negative) Urine Bilirubin Negative (Negative) Urine Urobilinogen <2.0 (<2.0) mg/dL Ur Leukocyte Esterase Large H (Negative) Urine RBC 19 H (0-5) /hpf Urine WBC >182 H (0-5) /hpf Urine WBC Clumps Many H (None) /hpf Ur Squamous Epith Cells <1 (0-4) /hpf Urine Bacteria Few H (None) /hpf Urine Mucus Rare H (None) /hpf - EKG Data EKG Comments: Sinus rhythm. No ST or T-wave changes. Ventricular rate 85, HI 160, QRS 80, QTC 419. Disposition Clinical Impression: Urinary tract infection, Renal stone, Hydronephrosis Disposition: ADMITTED IP TO THIS HOSP Condition: Fair Is patient prescribed a controlled substance at d/c from ED?: No Referrals: Ba Corbin DO [Primary Care Provider] - 1-2 days Time of Disposition: 21:47
[2020-03-26] MEDS ORDERED: SODIUM CHLORIDE 0.9% 1,000 ML IV STA (18:57)
[2020-03-26 19:58] LABS: Albumin 4.3 g/dL (3.5-5.0); Calcium 9.6 mg/dL (8.4-10.2); Potassium 5.5 mmol/L (3.5-5.1); Total Bilirubin 1.2 mg/dL (0.2-1.3); Total Protein 7.3 g/dL (6.3-8.2)
[2020-03-26 20:08] LABS: Basophils # (A) 0.1 k/uL (0-0.2); Basophils % (A) 0 %; Eosinophils # (A) 0.1 k/uL (0-0.7); Eosinophils % (A) 1 %; HGB 13.9 gm/dL (11.4-16.0); Lymphocytes # (A) 0.6 k/uL (1.0-4.8); Lymphocytes % (A) 4 %; MCH 31.2 pg (25.0-35.0); MCHC 31.6 g/dL (31.0-37.0); MCV 98.5 fL (80.0-100.0); Mean Platelet Volume 8.1; Monocytes # (A) 0.6 k/uL (0-1.0); Monocytes % (A) 5 %; Neutrophils # (A) 11.7 k/uL (1.3-7.7); Neutrophils % (A) 89 %; Platelet Count 227 k/uL (150-450); RBC 4.46 m/uL (3.80-5.40); RDW 12.5 % (11.5-15.5); WBC 13.1 k/uL (3.8-10.6)
[2020-03-26] MEDS ORDERED: cefTRIAXone IN SWFI 1,000 MG/10 ML SYRINGE IVP STA (20:34)
[2020-03-26 20:59] LABS: Appearance,Urine Cloudy (Clear); Bacteria,Urine Few /hpf; Bilirubin,Urine Negative (Negative); Blood,Urine Moderate (Negative); Color,Urine Light Yellow; Glucose,Urine (UA) Negative (Negative); Ketones,Urine Negative (Negative); Leukocyte Esterase,Urine Large (Negative); Mucus,Urine Rare /hpf; Nitrite,Urine Positive (Negative); Protein,Urine 1+ (Negative); RBC,Urine 19 /hpf (0-5); Specific Gravity,Urine 1.014 (1.001-1.035); Squamous Epithelial Cell,Urine <1 /hpf (0-4); Urobilinogen,Urine <2.0 mg/dL (<2.0); WBC,Urine >182 /hpf (0-5)
--- NOTE | 2020-03-26 21:04 | CT ---
EXAMINATION TYPE: CT abdomen pelvis w con DATE OF EXAM: 03/26/2020 COMPARISON: 08/04/2017 HISTORY: RLQ pain CT DLP: 619.2 mGycm Automated exposure control for dose reduction was used. CONTRAST: Performed with IV Contrast, patient injected with 80 mL of Isovue 300. There is some mild interstitial infiltrate the lung bases. Heart is enlarged. There is small hiatal h ernia. Gallbladder is intact. Liver shows no focal defect. Spleen is intact. There is no pancreatic m ass. There are numerous bilateral renal calculi that measure up to 1 cm. There is bilateral hydronephrosis . There is 1 cm calculus at the right ureteropelvic junction. I see no definite left ureteral calculu s. There is metal artifact from right hip prosthesis. There is no free fluid in the pelvis. Bladder i s obscured somewhat by the artifact. I see no pelvic mass. There is mild right-sided hydroureter. Distal ureter is obscured by the metal artifact. There is smal l umbilical hernia that measures 1 cm and contains fat. There is fat stranding around the right kidne y. There is right-sided perinephric fluid. There is no retroperitoneal adenopathy. There are multiple sigmoid diverticula. I see no sign of dive rticulitis. There is no mesenteric edema. There is no sign of free air. There is 15% compression frac ture of L1 vertebra. The bony pelvis appears intact. IMPRESSION: Numerous bilateral renal calculi. Obstructing calculus at the right ureteropelvic junction. Right-russ ed hydronephrosis and perinephric fluid. There is also right-sided hydroureter and possible distal ri ght ureteral obstruction. Left ureter is not dilated. Dilated left renal pelvis could relate to previous episode of obstruction .
[2020-03-26] MEDS ORDERED: ONDANSETRON 4 MG/2 ML VIAL IVP PRN (21:40)
[2020-03-26] MEDS ORDERED: ACETAMINOPHEN TAB 325 MG TAB PO PRN (21:40)
[2020-03-26] MEDS ORDERED: HYDROmorphone 1 MG/ML 1 ML SYRINGE IVP PRN (21:40)
[2020-03-26] MEDS ORDERED: LORazepam 2 MG/ML INJ IV PRN (21:40)
[2020-03-26] MEDS ORDERED: NALOXONE 0.4 MG/ML 1 ML VIAL IV PRN (21:40)
[2020-03-26] MEDS ORDERED: IBUPROFEN 400 MG TAB PO PRN (21:40)
[2020-03-26] MEDS: SODIUM CHLORIDE 0.9% 1,000 ML IV SCH (22:47)
[2020-03-26] MEDS: HYDROmorphone 0.5 MG/0.5 ML SYRINGE IVP PRN (22:54)
[2020-03-27] MEDS ORDERED: NALOXONE 0.4 MG/ML 1 ML VIAL IV PRN (01:59)
[2020-03-27] MEDS ORDERED: ONDANSETRON 4 MG/2 ML VIAL IVP PRN (01:59)
[2020-03-27] MEDS: HYDROmorphone 0.5 MG/0.5 ML SYRINGE IVP PRN ×2 (03:13→08:41)
--- NOTE | 2020-03-27 07:24 | P.GSCN ---
History of Present Illness Consult date: 03/27/20 History of present illness: This is a pleasant 84-year-old female known to me for kidney stones. She presented after 24 hours of abdominal pain and particularly in the right side and right flank. She was evaluated emergency room and found to have an obstructing UPJ stone on the right, 12 mm with perinephric stranding and hydronephrosis. She also has multiple asymptomatic renal stones on the left. Her urine is infected. Her white count is elevated at 13,000. She has an elevated plasma lactic acid. She she has known that she has had stones but she has been asymptomatic to date. She has not wanted any treatment today. She is not febrile. He is still in pain. Review of Systems All systems: negative - Constitutional Reports as per HPI, Denies fever, Denies weight loss - EENT Eyes: denies blurred vision Ears, nose, mouth and throat: Denies dysphagia - Cardiovascular Denies chest pain, Denies shortness of breath - Respiratory Denies cough, Denies 7 - Gastrointestinal Reports as per HPI, Reports abdominal pain - Genitourinary Genitourinary: Reports as per HPI, Denies dysuria, Denies hematuria - Integumentary Denies rash, Denies unusual bruising - Neurological Denies headaches, Denies syncope - Hematologic/Lymphatic Denies easy bleeding, Denies easy bruising Past Medical History Past Medical History: Coronary Artery Disease (CAD), Chest Pain / Angina, Hyperlipidemia, Hypertension, Myocardial Infarction ([place]), Skin Disorder Additional Past Medical History / Comment(s): TIA-pt states never confirmed, psoriasis.kidney stones, past stress test Last Myocardial Infarction Date:: 2009 History of Any Multi-Drug Resistant Organisms: None Reported Past Surgical History: Coronary Bypass/CABG, Heart Catheterization, Orthopedic Surgery, Tonsillectomy Additional Past Surgical History / Comment(s): 2009 CABG 4 vessel, bilateral cataract removals with lens implants.lithoptripsy. Right hip Past Anesthesia/Blood Transfusion Reactions: No Reported Reaction Past Psychological History: Anxiety Smoking Status: Never smoker Past Alcohol Use History: None Reported Past Drug Use History: None Reported - Past Family History Mother Family Medical History: CVA/TIA Additional Family Medical History / Comment(s): Mother of a CVA at the age of 73 yrs. Father Family Medical History: CVA/TIA Additional Family Medical History / Comment(s): Father had a surgical procedure with a CVA post op. He 5 yrs later at the age of 66yrs. Medications and Allergies Home Medications Medication Instructions Recorded Confirmed Type Aspirin EC [Ecotrin Low Dose] 81 mg PO HS 09/27/15 03/26/20 History amLODIPine [Norvasc] 5 mg PO DAILY 07/05/18 03/26/20 History Metoprolol Tartrate [Lopressor] 25 mg PO HS tab 07/10/18 03/26/20 Rx Acetaminophen Tab [Tylenol] 650 mg PO Q4H PRN 03/26/20 03/26/20 History Allergies Allergy/AdvReac Type Severity Reaction Status Date / Time morphine AdvReac Hallucinati Verified 03/26/20 22:34 ons Surgical - Exam Vital Signs Temp Pulse Resp BP Pulse Ox 97.9 F 97 16 140/85 95 03/26/20 18:20 03/26/20 18:20 03/26/20 18:20 03/26/20 18:20 03/26/20 18:20 - General well developed, well nourished, moderate distress - Eyes PERRL - ENT no hearing loss - Neck trachea midline - Respiratory normal expansion, normal respiratory effort - Cardiovascular Rhythm: regular - Abdomen Abdomen: tender - Integumentary no rash, no growths - Neurologic normal coordination - Musculoskeletal normal posture - Psychiatric oriented to time, oriented to person, oriented to place, speech is normal, memory intact Results - Labs 03/26/20 19:35 03/26/20 19:35 Abnormal Lab Results - Last 24 Hours (Table) 03/26/20 03/26/20 03/26/20 Range/Units 19:35 19:35 19:35 WBC 13.1 H (3.8-10.6) k/uL Neutrophils # 11.7 H (1.3-7.7) k/uL Lymphocytes # 0.6 L (1.0-4.8) k/uL Sodium 135 L (137-145) mmol/L Potassium 5.5 H (3.5-5.1) mmol/L BUN 26 H (7-17) mg/dL Glucose 140 H (74-99) mg/dL Plasma Lactic Acid Giuseppe 2.3 H* (0.7-2.0) mmol/L AST 47 H (14-36) U/L Urine Appearance (Clear) Urine Protein (Negative) Urine Blood (Negative) Urine Nitrite (Negative) Ur Leukocyte Esterase (Negative) Urine RBC (0-5) /hpf Urine WBC (0-5) /hpf Urine WBC Clumps (None) /hpf Urine Bacteria (None) /hpf Urine Mucus (None) /hpf 03/26/20 03/26/20 Range/Units 20:34 23:24 WBC (3.8-10.6) k/uL Neutrophils # (1.3-7.7) k/uL Lymphocytes # (1.0-4.8) k/uL Sodium (137-145) mmol/L Potassium (3.5-5.1) mmol/L BUN (7-17) mg/dL Glucose (74-99) mg/dL Plasma Lactic Acid Giuseppe 2.9 H* (0.7-2.0) mmol/L AST (14-36) U/L Urine Appearance Cloudy H (Clear) Urine Protein 1+ H (Negative) Urine Blood Moderate H (Negative) Urine Nitrite Positive H (Negative) Ur Leukocyte Esterase Large H (Negative) Urine RBC 19 H (0-5) /hpf Urine WBC >182 H (0-5) /hpf Urine WBC Clumps Many H (None) /hpf Urine Bacteria Few H (None) /hpf Urine Mucus Rare H (None) /hpf Microbiology - Last 24 Hours (Table) 03/26/20 20:34 Urine Culture - Preliminary Urine,Voided Diabetes panel 03/26/20 Range/Units 19:35 Sodium 135 L (137-145) mmol/L Potassium 5.5 H (3.5-5.1) mmol/L Chloride 104 (98-107) mmol/L Carbon Dioxide 23 (22-30) mmol/L BUN 26 H (7-17) mg/dL Creatinine 1.04 (0.52-1.04) mg/dL Glucose 140 H (74-99) mg/dL Calcium 9.6 (8.4-10.2) mg/dL AST 47 H (14-36) U/L ALT 23 (4-34) U/L Alkaline Phosphatase 79 (38-126) U/L Total Protein 7.3 (6.3-8.2) g/dL Albumin 4.3 (3.5-5.0) g/dL Calcium panel 03/26/20 Range/Units 19:35 Calcium 9.6 (8.4-10.2) mg/dL Albumin 4.3 (3.5-5.0) g/dL Pituitary panel 03/26/20 Range/Units 19:35 Sodium 135 L (137-145) mmol/L Potassium 5.5 H (3.5-5.1) mmol/L Chloride 104 (98-107) mmol/L Carbon Dioxide 23 (22-30) mmol/L BUN 26 H (7-17) mg/dL Creatinine 1.04 (0.52-1.04) mg/dL Glucose 140 H (74-99) mg/dL Calcium 9.6 (8.4-10.2) mg/dL Adrenal panel 03/26/20 Range/Units 19:35 Sodium 135 L (137-145) mmol/L Potassium 5.5 H (3.5-5.1) mmol/L Chloride 104 (98-107) mmol/L Carbon Dioxide 23 (22-30) mmol/L BUN 26 H (7-17) mg/dL Creatinine 1.04 (0.52-1.04) mg/dL Glucose 140 H (74-99) mg/dL Calcium 9.6 (8.4-10.2) mg/dL Total Bilirubin 1.2 (0.2-1.3) mg/dL AST 47 H (14-36) U/L ALT 23 (4-34) U/L Alkaline Phosphatase 79 (38-126) U/L Total Protein 7.3 (6.3-8.2) g/dL Albumin 4.3 (3.5-5.0) g/dL - Imaging CT scan - abdomen: report reviewed, image reviewed CT scan - pelvis: report reviewed, image reviewed Assessment and Plan Assessment: Impression: Right UPJ stone with obstruction, pyelonephrosis, urinary tract infection with sepsis and multiple left kidney stones. Multiple medical illnesses Recommendations: The patient needs an urgent [place] of double-J catheter to relieve the obstruction and sepsis on the right. She subsequently will have a read ureteroscopy and stone removal on the right. She'll need a percutaneous nephrostolithotomy on the left. This has been discussed with the patient. The patient has been made nothing by mouth and this procedure will be done later today.
[2020-03-27] MEDS: SODIUM CHLORIDE 0.9% 1,000 ML IV SCH ×2 (08:42→19:32)
[2020-03-27] MEDS ORDERED: LACTATED RINGERS 1,000 ML IV ONE (10:50)
[2020-03-27] MEDS ORDERED: LIDOCAINE 1% INJ 10MG/ML (20 ML MDV) ONE (11:07)
[2020-03-27] MEDS ORDERED: PROPOFOL 10 MG/ML 20 ML VIAL IV ONE (12:07)
--- NOTE | 2020-03-27 12:42 | P.OP ---
Preoperative Diagnosis: Right ureteral calculus with obstruction, pyelonephrosis, urinary tract infection with sepsis Postoperative Diagnosis: Same Procedure(s) Performed: Cystoscopy placement of double-J catheter, 6 x 24, right Anesthesia: MAC Surgeon: Joaquin Forbes Estimated Blood Loss (ml): 0 Pathology: none sent Condition: stable Disposition: PACU Indications for Procedure: The patient is an 84-year-old female with a history of stones. She presented with a 11 mm obstructing UPJ stone with pyelonephrosis urinary tract infection with sepsis based on a white count of 13,000 elected catheter 3 flank pain and an abnormal computed tomography scan. She also has multiple left renal stones. She has bilateral hydronephrosis right greater than left. She is symptomatic on the right. She'll have a cystoscopy double-J catheter on the right relieve the obstruction and sepsis Description of Procedure: Patient is brought to the operating suite. She is given IV sedation. She's placed lithotomy position with sterile prep and drape. Cystoscopy Foroblique lens and 21-E[place]ian sheath identifies a markedly, markedly inflamed and chronically inflamed bladder. There is no tumor stone. The stone is seen under fluoroscopy. Through the right ureteral orifice and 035 wires passed up into the renal pelvis by the stone. Over the wires passed a 6 x 24 double-J catheter that coils in the right renal pelvis and the bladder. Purulent urine emanates from the distal double-J catheter The bladder is drained the patient is awakened and returned recovery in good condition The patient will undergo a right ureteroscopy laser lithotripsy at a second setting in about 10 days to 2 weeks. She'll need a percutaneous nephrostolithotomy for the left renal stones.
--- NOTE | 2020-03-27 13:18 | FL ---
Fluoroscopy INDICATION: Pain FINDINGS: Fluoroscopy time: 13 seconds. Images obtained: 2. IMPRESSIONS: 1. Documentation of fluoroscopy.
--- NOTE | 2020-03-27 18:03 | P.HPIM ---
History of Present Illness H&P Date: 03/27/20 Chief Complaint: Right-sided abdominal pain History of presenting complaint: This is a very pleasant 84-year-old patient of Dr. Corbin. Chronic stable medical conditions include 1 artery disease, hyperlipidemia, essential hypertension. Patient started out with right-sided abdominal pain yesterday progressed to get worse. Does not nausea vomiting. Had a fever. Symptoms are improving. Brought into the ER. Found to have stone in the right ureter with right-sided hydronephrosis. Review of systems: GEN.: Tired EYES: None HEENT: None NECK: None RESPIRATORY: None CARDIOVASCULAR: None GASTROINTESTINAL: As above GENITOURINARY: None MUSCULOSKELETAL: Joint pains LYMPHATICS: None HEMATOLOGICAL: None PSYCHIATRY: None NEUROLOGICAL: None Past medical history to include: Coronary artery disease, hypertension, hyperlipidemia, psoriasis, kidney stones Social history: Lives alone. No history of smoking or alcohol Physical examination: VITAL SIGNS: 98.6, 101, 70, 16, 157/60, 95% on room air GENERAL: BMI 23.4, laying in bed awake. EYES: Pupils equal. Conjunctiva normal. HEENT: External appearance of nose and ears normal, oral cavity grossly normal. NECK: JVD not raised; masses not palpable. HEART: First and second heart sounds are normal; no edema. LUNGS: Respiratory rate normal; clear to auscultation. ABDOMEN: Soft, right-sided tenderness, no guarding rigidity liver spleen not palpable, no masses palpable. PSYCH: Alert and oriented x3; mood and affect normal. NEUROLOGICAL: Cranial nerves grossly intact; no facial asymmetry, power and sensation grossly intact. LYMPHATICS: No lymph nodes palpable in the axilla and neck INVESTIGATIONS, reviewed in the clinical context: White count 13.1 hemoglobin 13.9 increased neutrophils potassium 5.5 creatinine 1.04 Lactic acid 2.3 UA positive for nitrite, blood, leukoesterase, WBC greater than 182, Computed tomography scan of the abdomen pelvis with contrast-numerous bilateral renal calculi, bilateral hydronephrosis 1 cm calculus at the right UP junction mild right-sided hydroureter. Right-sided perinephritic fluid. Multiple sigmoid diverticula, 15% compression fracture of L1 Assessment: -Acute pyelonephritis from obstructing stone in the right UP junction, causing sepsis -Hyperkalemia from urinary tract obstructive disorder. -Bilateral hydronephrosis more so on the right. Status post double-J stent catheter placement on the right forearm right UP junction stone. -Bilateral nephrolithiasis-related percutaneous nephrolithotomy for left renal stones -Sigmoid diverticulosis, asymptomatic -Chronic compression of L1 vertebra -Coronary artery disease - history of CABG -Essential hypertension -Hyperlipidemia -Chronic cystitis -Chronic compression of L1 Plan: Patient was taken to the OR today. Cystoscopy was done. Chronically inflamed bladder was noted. Double-J catheter was placed. Purulent urine was obtained. Per urology patient will undergo a right ureteroscopic laser lithotripsy of the second setting in about 2 weeks and will need a percutaneous nephrolithotomy for the left renal stone. Home medications are to be continued. IV fluids. IV ceftriaxone. Increase IV fluids 200 mL an hour. Urine cultures pending. - Past Medical History Past Medical History: Coronary Artery Disease (CAD), Chest Pain / Angina, Hyperlipidemia, Hypertension, Myocardial Infarction (SC), Skin Disorder Additional Past Medical History / Comment(s): TIA-pt states never confirmed, psoriasis.kidney stones, past stress test Last Myocardial Infarction Date:: 2009 History of Any Multi-Drug Resistant Organisms: None Reported Past Surgical History: Coronary Bypass/CABG, Heart Catheterization, Orthopedic Surgery, Tonsillectomy Additional Past Surgical History / Comment(s): 2009 CABG 4 vessel, bilateral cataract removals with lens implants.lithoptripsy. Right hip Past Anesthesia/Blood Transfusion Reactions: No Reported Reaction Past Psychological History: Anxiety Smoking Status: Never smoker Past Alcohol Use History: None Reported Past Drug Use History: None Reported - Past Family History Mother Family Medical History: CVA/TIA Additional Family Medical History / Comment(s): Mother of a CVA at the age of 73 yrs. Father Family Medical History: CVA/TIA Additional Family Medical History / Comment(s): Father had a surgical procedure with a CVA post op. He 5 yrs later at the age of 66yrs. Medications and Allergies Home Medications Medication Instructions Recorded Confirmed Type Aspirin EC [Ecotrin Low Dose] 81 mg PO HS 09/27/15 03/26/20 History amLODIPine [Norvasc] 5 mg PO DAILY 07/05/18 03/26/20 History Metoprolol Tartrate [Lopressor] 25 mg PO HS tab 07/10/18 03/26/20 Rx Acetaminophen Tab [Tylenol] 650 mg PO Q4H PRN 03/26/20 03/26/20 History Allergies Allergy/AdvReac Type Severity Reaction Status Date / Time morphine AdvReac Hallucinati Verified 03/26/20 22:34 ons Physical Exam Vitals: Vital Signs Temp Pulse Pulse Resp BP BP Pulse Ox 03/27/20 07:57 98.6 F 70 131/73 93 L 03/27/20 07:25 98.6 F 102 H 18 143/61 96 03/27/20 03:00 98.6 F 101 H 16 157/60 95 03/26/20 21:00 89 16 140/59 97 03/26/20 18:20 97.9 F 97 16 140/85 95 Intake and Output 03/26/20 03/27/20 03/27/20 22:59 06:59 14:59 Other: Weight 54.431 kg Results CBC & Chem 7: 03/26/20 19:35 03/27/20 11:27 Labs: Abnormal Lab Results - Last 24 Hours (Table) 03/26/20 03/26/20 03/26/20 Range/Units 19:35 19:35 19:35 WBC 13.1 H (3.8-10.6) k/uL Neutrophils # 11.7 H (1.3-7.7) k/uL Lymphocytes # 0.6 L (1.0-4.8) k/uL Sodium 135 L (137-145) mmol/L Potassium 5.5 H (3.5-5.1) mmol/L BUN 26 H (7-17) mg/dL Glucose 140 H (74-99) mg/dL Plasma Lactic Acid Giuseppe 2.3 H* (0.7-2.0) mmol/L AST 47 H (14-36) U/L Urine Appearance (Clear) Urine Protein (Negative) Urine Blood (Negative) Urine Nitrite (Negative) Ur Leukocyte Esterase (Negative) Urine RBC (0-5) /hpf Urine WBC (0-5) /hpf Urine WBC Clumps (None) /hpf Urine Bacteria (None) /hpf Urine Mucus (None) /hpf 03/26/20 03/26/20 Range/Units 20:34 23:24 WBC (3.8-10.6) k/uL Neutrophils # (1.3-7.7) k/uL Lymphocytes # (1.0-4.8) k/uL Sodium (137-145) mmol/L Potassium (3.5-5.1) mmol/L BUN (7-17) mg/dL Glucose (74-99) mg/dL Plasma Lactic Acid Giuseppe 2.9 H* (0.7-2.0) mmol/L AST (14-36) U/L Urine Appearance Cloudy H (Clear) Urine Protein 1+ H (Negative) Urine Blood Moderate H (Negative) Urine Nitrite Positive H (Negative) Ur Leukocyte Esterase Large H (Negative) Urine RBC 19 H (0-5) /hpf Urine WBC >182 H (0-5) /hpf Urine WBC Clumps Many H (None) /hpf Urine Bacteria Few H (None) /hpf Urine Mucus Rare H (None) /hpf Microbiology - Last 24 Hours (Table) 03/26/20 20:34 Urine Culture - Preliminary Urine,Voided
[2020-03-27] MEDS: ENOXAPARIN 40 MG/0.4 ML SYRINGE SQ SCH (19:32)
[2020-03-28] MEDS: SODIUM CHLORIDE 0.9% 1,000 ML IV SCH ×2 (05:09→18:16)
--- NOTE | 2020-03-28 07:37 | P.PN ---
Subjective Progress Note Date: 03/28/20 the patient underwent placement of a double-J catheter on the right yesterday to relieve the obstruction and pyelonephrosis. There was a large amount of infected fluid draining out of the stent at the time of surgery. She is feeling much better. Her right flank pain is gone. She has some mild stent discomfort. Her vital signs are stable and she is afebrile. From urologic standpoint as soon as the culture is back and sensitivities are identified she can be placed on oral antibiotics and discharged home. In about 2 weeks I'll do right ureteroscopy laser lithotripsy stent and stone removal. She will then need a left percutaneous nephrostolithotomy at a later date. This has been discussed with the patient and her daughter. I will follow. Objective - Vital Signs Vital signs: Vital Signs Temp 98.6 F 03/28/20 00:29 Pulse 90 03/28/20 00:29 Resp 20 03/28/20 00:29 BP 125/49 03/28/20 00:29 Pulse Ox 97 03/28/20 00:29 Intake & Output 03/27/20 03/28/20 03/28/20 18:59 06:59 18:59 Intake Total 400 1100 Output Total 300 Balance 100 1100 Weight 54.431 kg Intake: IV 400 Intake, IV Titration 1100 Amount Sodium Chloride 0.9% 1, 1100 000 ml @ 100 mls/hr IV . Q10H [facility] Rx#:[id number] Output: Urine 300 Estimated Blood Loss 0 Other: Voiding Method Toilet # Voids 3 - Labs CBC & Chem 7: 03/26/20 19:35 03/27/20 11:27 Labs: Microbiology - Last 24 Hours (Table) 03/26/20 20:34 Urine Culture - Preliminary Urine,Voided Gram Neg Bacilli 03/26/20 19:35 Blood Culture - Preliminary Blood No Growth after 24 hours
[2020-03-28 08:43] LABS: HCT 38.1 % (34.0-46.0); HGB 12.1 gm/dL (11.4-16.0); MCH 31.9 pg (25.0-35.0); MCHC 31.7 g/dL (31.0-37.0); MCV 100.6 fL (80.0-100.0); Mean Platelet Volume 8.1; Platelet Count 175 k/uL (150-450); RBC 3.78 m/uL (3.80-5.40); RDW 12.2 % (11.5-15.5)
[2020-03-28 09:34] LABS: African American GFR (CKD) 53.4 (60.0-200.0); Anion Gap 9.4 mmol/L (4.00-12.00); BUN/Creat Ratio 16.36 Ratio (12.00-20.00); Calcium 8.4 mg/dL (8.7-10.3); Carbon Dioxide 18.6 mmol/L (21.6-31.8); Non-African American GFR(CKD) 46.1 (60.0-200.0); Potassium 4.9 mmol/L (3.5-5.5)
[2020-03-28] MEDS: ENOXAPARIN 40 MG/0.4 ML SYRINGE SQ SCH (17:07)
--- NOTE | 2020-03-28 21:15 | P.PN ---
Progress Note - Text Progress Note Date: 03/28/20 Chief Complaint: Right-sided abdominal pain History of presenting complaint: This is a very pleasant 84-year-old patient of Dr. Corbin. Chronic stable medical conditions include coronary artery disease, hyperlipidemia, essential hypertension. Patient started out with right-sided abdominal pain yesterday progressed to get worse. Does not nausea vomiting. Had a fever. Symptoms are improving. Brought into the ER. Found to have stone in the right ureter with right-sided hydronephrosis. Patient underwent placement of a double the J stent on the right ureter. Had bilateral left throat. Has bilateral hydronephrosis right greater than the left. Will need left-sided percutaneous nephrolithotomy down the road. Started on IV ceftriaxone and IV fluids. Today-laying in bed. Missing her dentures powder has difficulty eating. Some right flank pain. The better than before. No nausea vomiting. Review of systems: Was done for constitutional, cardiovascular, GI, pulmonary. relevant finding as above Active Medications Acetaminophen (Acetaminophen Tab 325 Mg Tab) 650 mg PO Q6HR PRN PRN Reason: Mild Pain or Fever > 100.5 Amlodipine Besylate (Amlodipine 5 Mg Tab) 5 mg PO DAILY [facility] Aspirin (Aspirin 81 Mg) 81 mg PO HS [facility] Enoxaparin Sodium (Enoxaparin 40 Mg/0.4 Ml Syringe) 40 mg SQ DAILY@1800 [facility] Last Admin: 03/28/20 17:07 Dose: 40 mg Documented by: Hydromorphone HCl (Hydromorphone 0.5 Mg/0.5 Ml Syringe) 0.5 mg IVP Q3HR PRN PRN Reason: Moderate Pain Last Admin: 03/27/20 08:41 Dose: 0.5 mg Documented by: Hydromorphone HCl (Hydromorphone 1 Mg/Ml 1 Ml Syringe) 1 mg IVP Q3HR PRN PRN Reason: Severe Pain Sodium Chloride (Saline 0.9%) 1,000 mls @ 100 mls/hr IV .Q10H [facility] Last Admin: 03/28/20 18:16 Dose: Not Given Documented by: Ceftriaxone Sodium 1 gm/ (Sodium Chloride) 50 mls @ 100 mls/hr IVPB Q24HR@2100 [facility] Last Admin: 03/27/20 19:32 Dose: 100 mls/hr Documented by: Ibuprofen (Ibuprofen 400 Mg Tab) 400 mg PO Q6HR PRN PRN Reason: Mild Pain or Fever > 100.5 Lorazepam (Lorazepam 2 Mg/Ml Inj) 0.5 mg IV Q6HR PRN PRN Reason: Anxiety Metoprolol Tartrate (Metoprolol Tartrate 12.5 Mg Tab) 12.5 mg PO BID [facility] Naloxone HCl (Naloxone 0.4 Mg/Ml 1 Ml Vial) 0.2 mg IV Q2M PRN PRN Reason: Opioid Reversal Ondansetron HCl (Ondansetron 4 Mg/2 Ml Vial) 4 mg IVP Q8HR PRN PRN Reason: Nausea And Vomiting Last Admin: 03/27/20 11:00 Dose: 4 mg Documented by: Physical examination: VITAL SIGNS: Afebrile, 81, 16, 121/61, 94% room air GENERAL: Laying in bed, tired EYES: Pupils equal. Conjunctiva normal. HEENT: External appearance of nose and ears normal, oral cavity grossly normal. NECK: JVD not raised; masses not palpable. HEART: First and second heart sounds are normal; no edema. LUNGS: Respiratory rate normal; clear to auscultation. ABDOMEN: Soft, decreased right-sided tenderness, no guarding rigidity liver spleen not palpable, no masses palpable. PSYCH: Alert and oriented x3; mood and affect tired INVESTIGATIONS, reviewed in the clinical context: White count 11 hemoglobin 12.1 creatinine 1.1 Admission testing White count 13.1 hemoglobin 13.9 increased neutrophils potassium 5.5 creatinine 1.04 Lactic acid 2.3 UA positive for nitrite, blood, leukoesterase, WBC greater than 182, Computed tomography scan of the abdomen pelvis with contrast-numerous bilateral renal calculi, bilateral hydronephrosis 1 cm calculus at the right UP junction mild right-sided hydroureter. Right-sided perinephritic fluid. Multiple sigmoid diverticula, 15% compression fracture of L1 Assessment: -Acute pyelonephritis from obstructing stone in the right UP junction, causing sepsis-urine culture growing gram-negative bacilli -Hyperkalemia from urinary tract obstructive disorder.-Improved -Bilateral hydronephrosis more so on the right. Status post double-J stent catheter placement for acalculous on the right ureter at the right UP junction stone. -Bilateral nephrolithiasis will need later percutaneous nephrolithotomy for left renal stones -Sigmoid diverticulosis, asymptomatic -Chronic compression of L1 vertebra -Coronary artery disease - history of CABG -Essential hypertension -Hyperlipidemia -Chronic cystitis -Chronic compression of L1 Plan: Continue with IV antibiotics IV fluids. Change diet to soft bland as patient cannot use her dentures.. Cultures are pending. Care was discussed with the patient.
[2020-03-28] MEDS: METOPROLOL TARTRATE 12.5 MG TAB PO SCH (21:48)
[2020-03-29] MEDS: SODIUM CHLORIDE 0.9% 1,000 ML IV SCH ×3 (03:41→10:59)
[2020-03-29] MEDS: METOPROLOL TARTRATE 12.5 MG TAB PO SCH (08:18)
[2020-03-29] MEDS ORDERED: amLODIPine 5 MG TAB PO SCH (09:00)
[2020-03-29 09:01] VITALS: BP 161/73; PULSE 97; RESP 20; TEMP 99
--- NOTE | 2020-03-29 10:13 | P.PN ---
Subjective Progress Note Date: 03/29/20 The patient is in her second postoperative day from cystoscopy and stent placement on the right for an obstructing stone with pyelonephrosis. Her vital signs are stable. She had some confusion last night but is oriented 3 this morning. She is feeling well. Her microbiology shows an E. coli that is pa nsensitive. From a urologic standpoint she can be discharged home in the next 24 hours on oral antibiotics. She should remain on oral antibiotics until I see her in the office in one week. At that point in time I'll set her up for right ureteroscopy laser lithotripsy. Subsequent she'll need a percutaneous nephrostolithotomy on the left for her large volume of stone. Objective - Vital Signs Vital signs: Vital Signs Temp 99.0 F 03/29/20 07:00 Pulse 97 03/29/20 07:00 Resp 20 03/29/20 07:00 BP 161/73 03/29/20 07:00 Pulse Ox 92 L 03/29/20 07:00 Intake & Output 03/28/20 03/29/20 03/29/20 18:59 06:59 18:59 Intake Total 290 1150 Balance 290 1150 Intake: Intake, IV Titration 50 850 Amount Sodium Chloride 0.9% 1, 800 000 ml @ 100 mls/hr IV . Q10H [facility] Rx#:[id number] cefTRIAXone 1 gm In 50 50 Sodium Chloride 0.9% 50 ml @ 100 mls/hr IVPB Q24HR@2100 [facility] Rx#: [id number] Oral 240 300 Other: # Voids 1 3 - Labs CBC & Chem 7: 03/28/20 07:47 03/28/20 06:27 Labs: Microbiology - Last 24 Hours (Table) 03/26/20 20:34 Urine Culture - Final Urine,Voided Escherichia coli 03/26/20 19:35 Blood Culture - Preliminary Blood No Growth after 48 hours
--- NOTE | 2020-03-29 20:04 | P.DS ---
Providers Date of admission: 03/26/20 21:25 Expected date of discharge: 03/29/20 Attending physician: Isidro Barrera Consults: 03/26/20 21:40 Consult Physician Stat Consulting Provider: Joaquin Forbes Consult Reason/Comments: Renal stones, bilateral hydronephrosis, urinary tract infection Do you want consulting provider notified?: Yes Primary care physician: [facility] Course: Chief Complaint: Right-sided abdominal pain History of presenting complaint: This is a very pleasant 84-year-old patient of Dr. Corbin. Chronic stable medical conditions include coronary artery disease, hyperlipidemia, essential hypertension. Patient started out with right-sided abdominal pain yesterday progressed to get worse. Does not nausea vomiting. Had a fever. Symptoms are improving. Brought into the ER. Found to have stone in the right ureter with right-sided hydronephrosis. Patient underwent placement of a double the J stent on the right ureter. Had bilateral left throat. Has bilateral hydronephrosis right greater than the left. Will need left-sided percutaneous nephrolithotomy down the road. Started on IV ceftriaxone and IV fluids. Today-doing much better. Had some delirium. Some limitation oral intake because of not able to use her dentures. No fever. Spoke with the the nurse and the patient's daughter Susanne. Did discuss the fact that patient be better at her place in her own surroundings rather limiting hospital given that she is clinically much improved. Oral antibiotics and been prescribed. 10 days of Keflex Discussion and discharge planning more than 35 minutes Consultation: Dr. Forbes from urology Physical examination: VITAL SIGNS: Afebrile, 97, 20, 161/73, 92% on room air GENERAL: Laying in bed, comfortable EYES: Pupils equal. Conjunctiva normal. HEENT: External appearance of nose and ears normal, oral cavity grossly normal. NECK: JVD not raised; masses not palpable. HEART: First and second heart sounds are normal; no edema. LUNGS: Respiratory rate normal; clear to auscultation. ABDOMEN: Soft, minimal right-sided tenderness, no guarding rigidity liver spleen not palpable, no masses palpable. PSYCH: Alert and oriented x3; mood and affect tired INVESTIGATIONS, reviewed in the clinical context: White count 11 hemoglobin 12.1 creatinine 1.1 Admission testing White count 13.1 hemoglobin 13.9 increased neutrophils potassium 5.5 creatinine 1.04 Lactic acid 2.3 UA positive for nitrite, blood, leukoesterase, WBC greater than 182, Computed tomography scan of the abdomen pelvis with contrast-numerous bilateral renal calculi, bilateral hydronephrosis 1 cm calculus at the right UP junction mild right-sided hydroureter. Right-sided perinephritic fluid. Multiple sigmoid diverticula, 15% compression fracture of L1 Urine culture-E. coli Blood culture negative Assessment: -Acute pyelonephritis from obstructing stone in the right UP junction, causing sepsis-urine culture growing E. coli -Hyperkalemia from urinary tract obstructive disorder.-Improved -Bilateral hydronephrosis more so on the right. Status post double-J stent catheter placement for a calculous on the right ureter at the right UP junction stone. -Bilateral nephrolithiasis will need later percutaneous nephrolithotomy for left renal stones -Sigmoid diverticulosis, asymptomatic -Chronic compression of L1 vertebra -Coronary artery disease - history of CABG -Essential hypertension -Hyperlipidemia -Chronic cystitis -Chronic compression of L1 -Acute delirium from infection improving Disposition: Home Patient Condition at Discharge: Stable Plan - Discharge Summary Discharge Rx Participant: No New Discharge Prescriptions: New Cephalexin [Keflex] 500 mg PO Q6HR #40 cap Ibuprofen [Motrin] 400 mg PO Q6HR PRN tab PRN Reason: Mild Pain Or Fever > 100.5 Continue Aspirin EC [Ecotrin Low Dose] 81 mg PO HS amLODIPine [Norvasc] 5 mg PO DAILY Acetaminophen Tab [Tylenol] 650 mg PO Q4H PRN PRN Reason: Pain Changed Metoprolol Tartrate [Lopressor] 12.5 mg PO BID #0 tab Discharge Medication List Aspirin EC [Ecotrin Low Dose] 81 mg PO HS 09/27/15 [History] amLODIPine [Norvasc] 5 mg PO DAILY 07/05/18 [History] Acetaminophen Tab [Tylenol] 650 mg PO Q4H PRN 03/26/20 [History] Cephalexin [Keflex] 500 mg PO Q6HR #40 cap 03/29/20 [Rx] Ibuprofen [Motrin] 400 mg PO Q6HR PRN tab 03/29/20 [Rx] Metoprolol Tartrate [Lopressor] 12.5 mg PO BID #0 tab 03/29/20 [Rx] Follow up Appointment(s)/Referral(s): Ba Corbin DO [Primary Care Provider] - 1-2 days (office closed at time of discharge. Please call Tuesday to make appointment) Joaquin Forbes MD [STAFF PHYSICIAN] - 1 Week (office closed at time of discharge. Please call Tuesday to make appointment) Patient Instructions/Handouts: Urinary Tract Infection in Women (DC), Urinary Tract Infection in Women (GEN), Hydronephrosis (ED), Hydronephrosis (DC), Hydronephrosis (GEN), Cystoscopy (DC), Cystoscopy (GEN) Discharge Disposition: HOME SELF-CARE
[2020-03-29] MEDS ORDERED: ASPIRIN 81 MG PO SCH (21:00)
== END 2020-03-29 13:48 | disposition home or self-care (01) | DRG 854 ==
LOC: EC 18:15 → 4SSUR 21:25
PROVIDERS: ADMIT Hospitalist; ATTEND Hospitalist
PROC: 0T738DZ Dilation of Right Kidney Pelvis with Intraluminal Device, Via Natural or Artificial Opening Endoscopic (ICD-10-PCS; principal; 2020-03-27 07:30)
DX: A41.51 Sepsis due to Escherichia coli [E. coli] (principal); F05 Delirium due to known physiological condition; M48.56XA Collapsed vertebra, not elsewhere classified, lumbar region, initial encounter for fracture; N13.6 Pyonephrosis; E78.5 Hyperlipidemia, unspecified; E87.5 Hyperkalemia; F41.9 Anxiety disorder, unspecified; I10 Essential (primary) hypertension; I25.10 Atherosclerotic heart disease of native coronary artery without angina pectoris; Z60.2 Problems related to living alone; K57.30 Diverticulosis of large intestine without perforation or abscess without bleeding; N30.20 Other chronic cystitis without hematuria; Z96.1 Presence of intraocular lens; Z79.01 Long term (current) use of anticoagulants; Z79.899 Other long term (current) drug therapy; Z88.5 Allergy status to narcotic agent; I25.2 Old myocardial infarction; Z86.73 Personal history of transient ischemic attack (TIA), and cerebral infarction without residual deficits; Z87.442 Personal history of urinary calculi; Z95.1 Presence of aortocoronary bypass graft; Z90.89 Acquired absence of other organs; Z98.890 Other specified postprocedural states; Z98.42 Cataract extraction status, left eye; Z98.41 Cataract extraction status, right eye; Z82.3 Family history of stroke
CPT/HCPCS: 36415; 74177; 80048; 80053; 81001; 83605; 83690; 84132; 84484; 85025; 85027; 87040; 87077; 87086; 87186; 93005; 96361; 96374; 96376; 99285

== ENCOUNTER → 2020-04-02 | Outpatient (CLI) | payer MEDICARE ==
[2020-04-02 08:34] LABS: Basophils # (A) 0.1 k/uL (0-0.2); Basophils % (A) 1 %; Eosinophils # (A) 0.2 k/uL (0-0.7); Eosinophils % (A) 2 %; HCT 41.3 % (34.0-46.0); HGB 13.6 gm/dL (11.4-16.0); Lymphocytes # (A) 0.7 k/uL (1.0-4.8); Lymphocytes % (A) 8 %; MCH 33.7 pg (25.0-35.0); MCHC 32.9 g/dL (31.0-37.0); MCV 102.7 fL (80.0-100.0); Mean Platelet Volume 6.9; Monocytes # (A) 0.5 k/uL (0-1.0); Monocytes % (A) 5 %; Neutrophils # (A) 7.6 k/uL (1.3-7.7); Neutrophils % (A) 82 %; Platelet Count 280 k/uL (150-450); RBC 4.02 m/uL (3.80-5.40); WBC 9.3 k/uL (3.8-10.6)
[2020-04-02 08:52] LABS: Calcium 9.2 mg/dL (8.4-10.2)
[2020-04-02 08:54] LABS: Appearance,Urine Turbid (Clear); Bacteria,Urine Occasional /hpf; Bilirubin,Urine Negative (Negative); Blood,Urine Small (Negative); Color,Urine Light Yellow; Glucose,Urine (UA) Negative (Negative); Leukocyte Esterase,Urine Large (Negative); Mucus,Urine Rare /hpf; Nitrite,Urine Negative (Negative); PH, Urine 5.5 (5.0-8.0); Protein,Urine 1+ (Negative); RBC,Urine 14 /hpf (0-5); Specific Gravity,Urine 1.013 (1.001-1.035); Squamous Epithelial Cell,Urine 15 /hpf (0-4); Urobilinogen,Urine <2.0 mg/dL (<2.0); WBC,Urine >182 /hpf (0-5)
[2020-04-02 08:58] LABS: Potassium 4.8 mmol/L (3.5-5.1)
[2020-04-02 09:00] LABS: Ketones,Urine 3+ (Negative)
== END | disposition home or self-care (01) ==
LOC: LABPAT 07:48
PROVIDERS: ATTEND Urology
DX: Z01.818 Encounter for other preprocedural examination (principal); R31.29 Other microscopic hematuria; N20.1 Calculus of ureter
CPT/HCPCS: 36415; 80048; 81001; 85025; 87086

== ENCOUNTER 2020-04-09 09:29 | Day surgery (SDC) | payer MEDICARE ==
[2020-04-07 15:02] VITALS: BMI 23.4
--- NOTE | 2020-04-07 19:28 | P.GSHP ---
History of Present Illness H&P Date: 04/07/20 84 yo female with kidney stone disease. She recently was in the hospital with an obstructing 11mm right proximal ureteral stone , uti and sepsis. SHe had an emergent stent placement. SHe comes for removal of the stone and stent on the right. She has a large amount of stone in the left kidney and will require a PCNL left in the future. - Constitutional Constitutional: Denies chills, Denies fever - EENT Eyes: denies blurred vision, denies pain Ears, nose, mouth and throat: Denies headache, Denies sore throat - Cardiovascular Cardiovascular: Denies chest pain, Denies shortness of breath - Respiratory Respiratory: Denies cough, Denies 7 - Gastrointestinal Gastrointestinal: Denies abdominal pain, Denies diarrhea, Denies nausea, Denies vomiting - Genitourinary (Female) Genitourinary: Denies dysuria, Denies hematuria - Genitourinary (Male) Genitourinary: Denies dysuria, Denies hematuria - Musculoskeletal Musculoskeletal: Denies myalgias - Integumentary Integumentary: Denies pruritus, Denies rash - Neurological Neurological: Denies numbness, Denies weakness - Psychiatric Psychiatric: Denies anxiety, Denies depression - Endocrine Endocrine: Denies fatigue, Denies weight change Past Medical History Past Medical History: Coronary Artery Disease (CAD), Chest Pain / Angina, Hyperlipidemia, Hypertension, Myocardial Infarction (CT), Skin Disorder Additional Past Medical History / Comment(s): psoriasis. kidney stones, rash on hip area, Can not swallow pills. recent pyelonephrosis with UTI and sepsis Last Myocardial Infarction Date:: 2009 History of Any Multi-Drug Resistant Organisms: None Reported Past Surgical History: Coronary Bypass/CABG, Heart Catheterization, Orthopedic Surgery, Tonsillectomy Additional Past Surgical History / Comment(s): 2009 CABG 4 vessel, bilateral cataract removals with lens implants. lithoptripsy, stent in rt kidney, Right hip replacement. 03/26/20-cystoscopy with rt double j catheter Past Anesthesia/Blood Transfusion Reactions: Previous Problems w/ Anesthesia Additional Past Anesthesia/Blood Transfusion Reaction / Comment(s): had hallucinations with hip surgery-told may have been the anesthesia Smoking Status: Never smoker - Past Family History Mother Family Medical History: No Reported History Additional Family Medical History / Comment(s): . Father Family Medical History: CVA/TIA Additional Family Medical History / Comment(s): Father had a surgical procedure with a CVA post op. He 5 yrs later at the age of 66yrs. Medications and Allergies Home Medications Medication Instructions Recorded Confirmed Type Aspirin EC [Ecotrin Low Dose] 81 mg PO HS 09/27/15 04/07/20 History amLODIPine [Norvasc] 5 mg PO DAILY 07/05/18 04/07/20 History Acetaminophen Tab [Tylenol] 650 mg PO Q4H PRN 03/26/20 04/07/20 History Metoprolol Tartrate [Lopressor] 25 mg PO HS 04/07/20 04/07/20 History Allergies Allergy/AdvReac Type Severity Reaction Status Date / Time morphine AdvReac Hallucinati Verified 04/07/20 14:50 ons Surgical - Exam - General well developed, well nourished, no distress - Eyes PERRL - ENT no hearing loss - Neck trachea midline - Respiratory normal expansion, normal respiratory effort - Cardiovascular Rhythm: regular - Abdomen Abdomen: soft, non tender - Integumentary no rash, no growths - Neurologic normal coordination, normal sensation - Musculoskeletal normal gait, normal posture - Psychiatric oriented to time, oriented to person, oriented to place, speech is normal, memory intact Assessment and Plan Assessment: IMPRESSION: Right ureteral stone with stent plan: Right ureteroscopy with laser lithotripsy
[~2020-04-09 09:29] MED LIST: AMPICILLIN 1,000 MG in SODIUM CHLORIDE 0.9% 50 ML IVPB ONE; DEXAMETHASONE SOD PHOSPHATE 10 MG/ML 1 ML VIAL IV ONE; GENTAMICIN 80 MG in SODIUM CHLORIDE 0.9% 100 ML IVPB ONE; HYDROmorphone 0.5 MG/0.5 ML SYRINGE IVP PRN; LACTATED RINGERS 1,000 ML IV SCH; LIDOCAINE 1% (10MG/ML) FOR IV START INTRADERMA PRN; ONDANSETRON 4 MG/2 ML VIAL IVP ONE
--- NOTE | 2020-04-09 10:22 | XR ---
EXAMINATION TYPE: XR KUB DATE OF EXAM: 04/09/2020 HISTORY: Pain Comparison: None.Single KUB is submitted for interpretation. Findings: Right renal calculi: Layering calcifications noted mid to lower pole right kidney. Right ureteral calculi: Double pigtail catheter noted to be in place. 1.3 cm calculus in the expected location of the right UPJ. Left renal calculi: Innumerable round calcifications left kidney all measuring less than 1 cm. Left ureteral calculi: None Visualized. Pelvic calcifications: Multiple pelvic calcifications are identified Bowel gas pattern is unremarkable. No free air. No mass effects. IMPRESSION: 1. Double pigtail catheter noted to be in place. 1.3 cm calculus in the expected location of the righ t UPJ. Innumerable round calcifications left kidney.
[2020-04-09] MEDS ORDERED: fentaNYL (PF) 50 MCG/ML 2 ML AMP ONE (10:51)
[2020-04-09] MEDS ORDERED: SUCCINYLCHOLINE CHLORIDE 100 MG/5 ML SYR IV ONE (10:51)
[2020-04-09] MEDS ORDERED: LIDOCAINE 1% INJ 10MG/ML (20 ML MDV) ONE (10:51)
[2020-04-09] MEDS ORDERED: PROPOFOL 10 MG/ML 20 ML VIAL IV ONE (10:51)
[2020-04-09] MEDS ORDERED: LACTATED RINGERS 1,000 ML IV ONE (11:39)
[2020-04-09 12:06] VITALS: TEMP 96.9
--- NOTE | 2020-04-09 12:08 | P.OP ---
Date of Procedure: 04/09/20 Preoperative Diagnosis: Right renal calculus status post stent placement Postoperative Diagnosis: Same, pyonephrosis, right UPJ obstruction Procedure(s) Performed: Cystoscopy, removal double-J catheter right, right ureteroscopy, irrigation right renal pelvis, right ureteroscopy, replacement 6 x 24 double-J catheter Anesthesia: MINI Surgeon: Joaquin Forbes Pathology: none sent Condition: stable Disposition: PACU Indications for Procedure: The patient is 84. She recently was in the hospital with right-sided back pain. She had an obstructing 12 mm right UPJ stone and pyelonephrosis. She had an emergent stent placement. She now comes for right ureteroscopy and stone removal Description of Procedure: The patient is brought to the operating suite. She's given general endotracheal anesthesia. The stone was seen on fluoroscopy as the double-J catheter. After sterile prep and drape cystoscopy identifies the right double-J catheter. The catheters pulled to the urethral meatus. Through the right ureteral catheter no 35 wires passed up into the renal pelvis. I then passed over the wire is [id number] reentry ureteral catheter. The inner sheath is removed. Pass a flexible ureteroscope through the catheter and find that there is a notable UPJ obstruction that is difficult to manipulate the scope into the renal pelvis. There appears to be a lot of purulence emanating from the right UPJ. I repassed the wire into the renal pelvis and passed the reentry sheath into the renal pelvis. I removed the inner sheath and again look with the flexible ureteroscope and there is a marked amount of pyelonephrosis in the right kidney. I irrigate thoroughly but I am having a very difficult time seeing the stone and keeping the scope in the renal pelvis due to the UPJ obstruction. After several attempts I elected terminate the procedure as the pyelonephrosis is sig nificant, and I'm unable to see the stone adequately. I repassed the wire into the right kidney. I backloaded the wire onto the cystoscope and passed a 6 x 24 double-J catheter that coils in the kidney and in the bladder. Strain the patient's awakened and returned recovery room good condition. The patient will need a percutaneous nephrostolithotomy to clean out the kidney of mucosal debris as well as a stone. This will be done on the right side. She'll then need a percutaneous nephrostolithotomy to remove the very large volume of stone on the left. This is been discussed with the patient's son.
--- NOTE | 2020-04-09 12:15 | FL ---
Fluoroscopy History: OR MAHENDRA ASSIST TO REMOVE RT RENAL CALCULI DR. RUST SUPERVISED USE OF MAHENDRA FOR A LASER STONE CRUSH WITH REMOVAL. TOO MUCH INFECTION, ABORTED AN D MAY DO A PERC. FL TIME OF 1.07 MINS
[2020-04-09 13:13] VITALS: BP 135/70; PULSE 82; RESP 20
== END 2020-04-09 13:43 | disposition home or self-care (01) ==
LOC: OR 09:29
PROVIDERS: ATTEND Urology
DX: N13.6 Pyonephrosis (principal); N20.2 Calculus of kidney with calculus of ureter; I10 Essential (primary) hypertension; I25.10 Atherosclerotic heart disease of native coronary artery without angina pectoris; I25.2 Old myocardial infarction; E78.5 Hyperlipidemia, unspecified; L40.9 Psoriasis, unspecified; Z88.5 Allergy status to narcotic agent; Z79.899 Other long term (current) drug therapy; Z95.1 Presence of aortocoronary bypass graft; Z98.890 Other specified postprocedural states; Z98.41 Cataract extraction status, right eye; Z98.42 Cataract extraction status, left eye; Z96.1 Presence of intraocular lens; Z87.442 Personal history of urinary calculi; Z96.641 Presence of right artificial hip joint; Z82.49 Family history of ischemic heart disease and other diseases of the circulatory system; Z79.82 Long term (current) use of aspirin
CPT/HCPCS: 74018; 52332; C2625; C1769; J1100; J2405; J2001; J3010; J1580; J0290; J0330; J2704

== ENCOUNTER → 2020-05-02 | Outpatient (CLI) | payer MEDICARE ==
[2020-05-02 11:12] LABS: Basophils # (A) 0.1 k/uL (0-0.2); Basophils % (A) 2 %; Eosinophils # (A) 0.2 k/uL (0-0.7); Eosinophils % (A) 3 %; HGB 13.8 gm/dL (11.4-16.0); Lymphocytes % (A) 18 %; MCH 32.4 pg (25.0-35.0); MCHC 31.5 g/dL (31.0-37.0); Macrocytosis Slight; Mean Platelet Volume 8.2; Monocytes # (A) 0.3 k/uL (0-1.0); Monocytes % (A) 5 %; Neutrophils # (A) 4.1 k/uL (1.3-7.7); Neutrophils % (A) 72 %; Platelet Count 221 k/uL (150-450); RBC 4.27 m/uL (3.80-5.40); RDW 12.6 % (11.5-15.5); WBC 5.7 k/uL (3.8-10.6)
[2020-05-02 11:16] LABS: Albumin 4.1 g/dL (3.5-5.0); Calcium 9.7 mg/dL (8.4-10.2); Potassium 4.5 mmol/L (3.5-5.1); Total Bilirubin 0.7 mg/dL (0.2-1.3); Total Protein 7.4 g/dL (6.3-8.2)
[2020-05-02 11:51] LABS: Appearance,Urine Cloudy (Clear); Bacteria,Urine Occasional /hpf; Bilirubin,Urine Negative (Negative); Blood,Urine Small (Negative); Color,Urine Light Yellow; Glucose,Urine (UA) Negative (Negative); Ketones,Urine Negative (Negative); Leukocyte Esterase,Urine Large (Negative); Mucus,Urine Occasional /hpf; Nitrite,Urine Negative (Negative); Protein,Urine Trace (Negative); RBC,Urine 23 /hpf (0-5); Specific Gravity,Urine 1.013 (1.001-1.035); Squamous Epithelial Cell,Urine 4 /hpf (0-4); Urobilinogen,Urine <2.0 mg/dL (<2.0); WBC,Urine 132 /hpf (0-5)
== END | disposition home or self-care (01) ==
LOC: LABPAT 09:20
PROVIDERS: ATTEND Urology
DX: Z01.818 Encounter for other preprocedural examination (principal); R31.29 Other microscopic hematuria; N20.0 Calculus of kidney; R53.83 Other fatigue
CPT/HCPCS: 36415; 80053; 81001; 85025; 87086

== ENCOUNTER 2020-05-09 11:16 | Observation (INO) | payer MEDICARE ==
[2020-05-07 14:24] VITALS: BMI 22.4
--- NOTE | 2020-05-08 10:31 | P.GSHP ---
History of Present Illness H&P Date: 05/08/20 84 yo female with a history of stones. She Had an obstructing large right upj stone with uti and sepsis. I was unable to remove it ureteroscopically due to a partial upj obstruction. SHe thus comes for a right pcnl. She will eventually need a left pcnl as she has a large volume of large stones in the left kidney - Constitutional Constitutional: Denies chills, Denies fever - EENT Eyes: denies blurred vision, denies pain Ears, nose, mouth and throat: Denies headache, Denies sore throat - Cardiovascular Cardiovascular: Denies chest pain, Denies shortness of breath - Respiratory Respiratory: Denies cough, Denies 7 - Gastrointestinal Gastrointestinal: Denies abdominal pain, Denies diarrhea, Denies nausea, Denies vomiting - Genitourinary (Female) Genitourinary: Denies dysuria, Denies hematuria - Genitourinary (Male) Genitourinary: Denies dysuria, Denies hematuria - Musculoskeletal Musculoskeletal: Denies myalgias - Integumentary Integumentary: Denies pruritus, Denies rash - Neurological Neurological: Denies numbness, Denies weakness - Psychiatric Psychiatric: Denies anxiety, Denies depression - Endocrine Endocrine: Denies fatigue, Denies weight change Past Medical History Past Medical History: Coronary Artery Disease (CAD), Chest Pain / Angina, Hyperlipidemia, Hypertension, Myocardial Infarction ([place]), Skin Disorder Additional Past Medical History / Comment(s): TIA-pt states never confirmed, psoriasis. kidney stones, past stress test Last Myocardial Infarction Date:: 2009 History of Any Multi-Drug Resistant Organisms: None Reported Past Surgical History: Coronary Bypass/CABG, Heart Catheterization, Joint Replacement, Tonsillectomy Additional Past Surgical History / Comment(s): 2009 CABG 4 vessel, bilateral cataract removals with lens implants.lithoptripsy, cystoscopy, renal stent. Right hip replacement Past Anesthesia/Blood Transfusion Reactions: Previous Problems w/ Anesthesia Additional Past Anesthesia/Blood Transfusion Reaction / Comment(s): states "hallucinations after surgery" Past Psychological History: Anxiety Additional Psychological History / Comment(s): . Smoking Status: Never smoker Past Alcohol Use History: None Reported Past Drug Use History: None Reported - Past Family History Mother Family Medical History: No Reported History Additional Family Medical History / Comment(s): . Father Family Medical History: CVA/TIA Additional Family Medical History / Comment(s): Father had a surgical procedure with a CVA post op. He 5 yrs later at the age of 66yrs. Medications and Allergies Home Medications Medication Instructions Recorded Confirmed Type Aspirin EC [Ecotrin Low Dose] 81 mg PO HS 09/27/15 05/07/20 History amLODIPine [Norvasc] 5 mg PO DAILY 07/05/18 05/07/20 History Acetaminophen Tab [Tylenol] 650 mg PO Q4H PRN 03/26/20 05/07/20 History Metoprolol Tartrate [Lopressor] 25 mg PO HS 04/07/20 05/07/20 History Allergies Allergy/AdvReac Type Severity Reaction Status Date / Time morphine AdvReac Hallucinati Verified 05/07/20 14:08 ons Surgical - Exam - General well developed, well nourished, no distress - Eyes PERRL - ENT no hearing loss - Neck trachea midline - Respiratory normal expansion, normal respiratory effort - Cardiovascular Rhythm: regular - Abdomen Abdomen: soft, non tender - Integumentary no rash, no growths - Neurologic normal coordination, normal sensation - Musculoskeletal normal gait, normal posture - Psychiatric oriented to time, oriented to person, oriented to place, speech is normal, memory intact Results - Imaging Abdominal x-ray: report reviewed, image reviewed CT scan - abdomen: report reviewed, image reviewed CT scan - pelvis: report reviewed, image reviewed Assessment and Plan Assessment: Impression. right renal stone with partial upj obstruction Plan: RIght PCNL
[~2020-05-09 11:16] MED LIST changes: -DEXAMETHASONE SOD PHOSPHATE 10 MG/ML 1 ML VIAL IV ONE; +GENTAMICIN 68 MG in SODIUM CHLORIDE 0.9% 100 ML IVPB ONE; -GENTAMICIN 80 MG in SODIUM CHLORIDE 0.9% 100 ML IVPB ONE; -LACTATED RINGERS 1,000 ML IV SCH
[2020-05-09] MEDS: LACTATED RINGERS 1,000 ML IV SCH ×2 (12:06→16:54)
[2020-05-09] MEDS ORDERED: PROPOFOL 10 MG/ML 20 ML VIAL IV ONE (12:26)
[2020-05-09] MEDS ORDERED: SUCCINYLCHOLINE CHLORIDE 100 MG/5 ML SYR IV ONE (12:26)
[2020-05-09] MEDS ORDERED: LIDOCAINE 1% INJ 10MG/ML (20 ML MDV) ONE (12:26)
[2020-05-09] MEDS ORDERED: PHENYLEPHRINE-0.9% NACL SYG 1 MG/10 ML SYRINGE ONE (12:26)
[2020-05-09] MEDS ORDERED: fentaNYL (PF) 50 MCG/ML 2 ML AMP ONE (12:26)
[2020-05-09] MEDS ORDERED: LACTATED RINGERS 1,000 ML IV ONE (14:09)
[2020-05-09] MEDS ORDERED: ACETAMINOPHEN TAB 325 MG TAB PO PRN (14:16)
[2020-05-09] MEDS ORDERED: MAG HYDROX/AL HYDROX/SIMETH 30 ML CUP PO PRN (14:16)
[2020-05-09] MEDS ORDERED: ONDANSETRON 4 MG/2 ML VIAL IVP PRN (14:16)
[2020-05-09] MEDS ORDERED: HYDROmorphone PCA 10 MG/50 ML BAG IV PRN (14:19)
[2020-05-09] MEDS ORDERED: NALOXONE 0.4 MG/ML 1 ML VIAL IV PRN (14:19)
--- NOTE | 2020-05-09 14:24 | P.OP ---
Date of Procedure: 05/09/20 Preoperative Diagnosis: Right renal stone with pyelonephrosis and UPJ obstruction Postoperative Diagnosis: Same Procedure(s) Performed: Cystoscopy, removal double-J catheter right, placement of occluding balloon catheter right, percutaneous nephrostomy (Dr. ortega) or cutaneous nephrostolithotomy, removal of mucosal debris, dilation of the UPJ stricture, placement of 7 x 26 antegrade double-J catheter, placement of 10 J nephrostomy Anesthesia: MINI Surgeon: Joaquin Forbes Estimated Blood Loss (ml): 50 Pathology: other (Stone) Condition: stable Disposition: PACU Indications for Procedure: The patient is 84. She has an infected UPJ stone on the right. I was unable to access it transurethrally. She comes for percutaneous nephrostolithotomy dilation or cutting of UPJ stricture irrigation of UPJ and collecting system mucosal debris, placement of nephrostomy and ureteral catheters Description of Procedure: The patient is brought to the operating suite. She is given a general anesthesia on the transport gurney. She's placed in a frog position with a sterile prep and drape. Cystoscopy of the Foroblique lens and 21-[place] sheath identifies chronic cystitis cystica. The double-J catheters identified and pulled out of the ureter. Through the cystoscope was passed a 5-[place] occluding balloon catheter up into the kidney. His secured to a Magana catheter. The patient's placed in prone position to care to airways and extremities. Dr. Ortega of radiology performed right percutaneous nephrostomy access to an upper pole calyx. I dilate the tract to 30-[place]. I introduced the nephroscope into the collecting system remove clot and a large amount of mucosal purulence and debris. A 12 mm stone was identified and removed. I look out through the collecting system with the flexible nephroscope and remove more mucosal debris and purulence a. A clean out the collecting system and its entirety. I looked to the right UPJ and pass an 035 wire down the ureter. Over the wires and passed [id number]-[id number] dilating balloon. The ureter is dilated 18-[place] Islander. After adequate dilation I then pass over the working wire a 7 x 26 double-J cath that coils in the bladder and in the kidney. Then over the working wire pass a 10- [place] J nephrostomy tube. The working sheath is removed. His the nephrostomy tube was secured the skin. The patient's awake and returned recovery room good condition Impression successful removal of right UPJ stone, dilation right UPJ stricture, placement of right antegrade stent, placement of right nephrostomy tube. The patient will be placed in the hospital postoperatively and discharged home for nephrostomy tube removal and later date. Should have her left kidney stones removed at a later date.
--- NOTE | 2020-05-09 14:50 | FL ---
EXAMINATION TYPE: FL Perc Nephrostomy New Access DATE OF EXAM: 05/09/2020 COMPARISON: NONE HISTORY: Right renal stone Procedure had been discussed with the patient by Dr. Forbes, risks, benefits, alternatives, were dis cussed and any questions were answered. Informed consent was obtained. The patient was in a semipro ne position prepped and draped on the OR table in the usual sterile fashion. Utilizing a 15 cm lengt h Chiba needle a single pass was made into a upper pole posterior calyx under fluoroscopic guidance. An 0.018 guidewire is passed through the needle and there was placement of a 6-Thai catheter sheat h system. There was conversion to a 0.035 system was performed with passage of a guidewire into the ureter utilizing a directional catheter. A second safety wire was placed. Remaining portion of pro cedure performed by . Approximately 15 minutes and 41 seconds of fluoroscopy was provided. IMPRESSION: 1. Successful intraoperative right nephrostomy prior to nephrolithotomy.
[2020-05-09] MEDS: DEXTROSE 5%-0.45% NACL 1,000 ML IV SCH (18:58)
[2020-05-10] MEDS: SULFAMETHOX-TMP 800-160MG 1 EACH TAB PO SCH ×3 (00:44→20:11)
[2020-05-10] MEDS: DEXTROSE 5%-0.45% NACL 1,000 ML IV SCH ×2 (03:44→16:33)
--- NOTE | 2020-05-10 11:09 | P.PN ---
Subjective Progress Note Date: 05/10/20 Principal diagnosis: POD #1, s/p Right PCNL The patient appears comfortable. She is somewhat confused. She denies pain and has no complaints. Objective - Vital Signs Vital signs: Vital Signs Temp 99.0 F 05/10/20 07:00 Pulse 101 H 05/10/20 07:00 Resp 18 05/10/20 07:00 BP 139/70 05/10/20 07:00 Pulse Ox 97 05/10/20 07:00 Intake & Output 05/09/20 05/10/20 05/10/20 18:59 06:59 18:59 Intake Total 2151.7 1600 Output Total 350 500 300 Balance 1801.7 1100 -300 Weight 53.3 kg Intake: IV 2151.7 Intake, IV Titration 1100 Amount Dextrose 5%-0.45% NaCl 1, 1100 000 ml @ 75 mls/hr IV . [id number] [facility] Rx#:[id number] Oral 500 Output: Drainage 300 Right Back 300 Urine 300 500 Estimated Blood Loss 50 Other: Voiding Method Indwelling Catheter Indwelling Catheter Indwelling Catheter - Constitutional General appearance: Present: cooperative, no acute distress - Gastrointestinal Gastrointestinal Comment(s): Soft, non-tender. The nephrostomy tube is draining blood-tinged urine. The urine draining from the Magana catheter is essentially clear. Assessment and Plan (1) Renal stone Current Visit: No Status: Acute Code(s): N20.0 - CALCULUS OF KIDNEY SNOMED Code(s): 44730347 Plan: Magana catheter will be removed. Assuming she is feeling well and is less confused tomorrow morning, discharge home is anticipated.
[2020-05-11] MEDS: LACTATED RINGERS 1,000 ML IV SCH (05:50)
[2020-05-11] MEDS: DEXTROSE 5%-0.45% NACL 1,000 ML IV SCH (05:51)
[2020-05-11 07:17] VITALS: BP 138/78; PULSE 86; RESP 16; TEMP 98.7
[2020-05-11] MEDS: SULFAMETHOX-TMP 800-160MG 1 EACH TAB PO SCH (08:33)
--- NOTE | 2020-05-11 09:56 | P.DS ---
Providers Date of admission: 05/10/20 11:03 Expected date of discharge: 05/11/20 Attending physician: Joaquin Forbes Primary care physician: Ba Corbin - Discharge Diagnosis(es) (1) Renal stone Current Visit: No Status: Acute Hospital Course: The patient is an 84-year-old white female who underwent an uncomplicated right percutaneous nephrolithotomy and 05/09/2020. The perioperative course was unremarkable. She remained afebrile with stable vital signs. She was somewhat confused on the first postoperative day, much better the second day. The Magana catheter was removed on the first postoperative day. On the second postoperative day, the nephrostomy tube was draining clear yellow urine. She denied pain and had no other complaints. Procedures: Right percutaneous nephrolithotomy (PCNL) with antegrade stent placement on 05/09/2020. Patient Condition at Discharge: Good Plan - Discharge Summary Discharge Rx Participant: No New Discharge Prescriptions: New Ketorolac [Toradol] 10 mg PO Q6HR PRN #10 tab PRN Reason: Moderate To Severe Pain Sulfamethox-Tmp 800-160Mg [Bactrim DS 800-160 mg] 1 tab PO Q12HR 7 Days #14 tab No Action Aspirin EC [Ecotrin Low Dose] 81 mg PO HS amLODIPine [Norvasc] 5 mg PO DAILY Acetaminophen Tab [Tylenol] 650 mg PO Q4H PRN PRN Reason: Pain Metoprolol Tartrate [Lopressor] 25 mg PO HS Discharge Medication List Aspirin EC [Ecotrin Low Dose] 81 mg PO HS 09/27/15 [History] amLODIPine [Norvasc] 5 mg PO DAILY 07/05/18 [History] Acetaminophen Tab [Tylenol] 650 mg PO Q4H PRN 03/26/20 [History] Metoprolol Tartrate [Lopressor] 25 mg PO HS 04/07/20 [History] Ketorolac [Toradol] 10 mg PO Q6HR PRN #10 tab 05/11/20 [Rx] Sulfamethox-Tmp 800-160Mg [Bactrim DS 800-160 mg] 1 tab PO Q12HR 7 Days #14 tab 05/11/20 [Rx] Follow up Appointment(s)/Referral(s): Joaquin Forbes MD [STAFF PHYSICIAN] - 1 Week Activity/Diet/Wound Care/Special Instructions: Discharge home with nephrostomy tube. Patient should be instructed to hold aspirin, and drink plenty of fluids.
== END 2020-05-11 13:59 | disposition home or self-care (01) ==
LOC: OR 11:16 → 1SOBS 14:29 → 4SSUR 16:40 → OR 05-10 11:03 → 4SSUR 05-10 11:03
PROVIDERS: ADMIT Urology; ATTEND Urology
DX: N20.2 Calculus of kidney with calculus of ureter (principal); I10 Essential (primary) hypertension; E78.5 Hyperlipidemia, unspecified; I25.10 Atherosclerotic heart disease of native coronary artery without angina pectoris; L40.9 Psoriasis, unspecified; R41.0 Disorientation, unspecified; Z79.82 Long term (current) use of aspirin; Z79.899 Other long term (current) drug therapy; Z88.5 Allergy status to narcotic agent; I25.2 Old myocardial infarction; Z95.1 Presence of aortocoronary bypass graft; Z87.442 Personal history of urinary calculi; Z87.440 Personal history of urinary (tract) infections; Z86.19 Personal history of other infectious and parasitic diseases; Z98.42 Cataract extraction status, left eye; Z98.41 Cataract extraction status, right eye; Z96.1 Presence of intraocular lens; Z96.641 Presence of right artificial hip joint; F41.9 Anxiety disorder, unspecified; Z82.3 Family history of stroke
CPT/HCPCS: 50080; 86902; 82365; 50432; G0378 ×2; C2625; C1769 ×4; C2628; C1729 ×2; C1894; J2405; J2001; J3010; J1580; J0290; J2370; J0330; J2704; J1170 ×2; 86850; 86870; 86880; 86900; 86901

== ENCOUNTER → 2020-08-20 | Outpatient (CLI) | payer MEDICARE ==
[2020-08-20 08:23] LABS: Basophils # (A) 0.1 k/uL (0-0.2); Basophils % (A) 1 %; Eosinophils # (A) 0.2 k/uL (0-0.7); Eosinophils % (A) 4 %; HCT 43.2 % (34.0-46.0); HGB 14.2 gm/dL (11.4-16.0); Lymphocytes # (A) 1.3 k/uL (1.0-4.8); Lymphocytes % (A) 26 %; MCH 32.5 pg (25.0-35.0); MCHC 32.9 g/dL (31.0-37.0); MCV 98.6 fL (80.0-100.0); Mean Platelet Volume 8.1; Monocytes # (A) 0.2 k/uL (0-1.0); Monocytes % (A) 5 %; Neutrophils # (A) 3.1 k/uL (1.3-7.7); Neutrophils % (A) 62 %; Platelet Count 180 k/uL (150-450); RBC 4.38 m/uL (3.80-5.40); RDW 12.6 % (11.5-15.5)
[2020-08-20 08:31] LABS: Appearance,Urine Clear (Clear); Bacteria,Urine Rare /hpf; Bilirubin,Urine Negative (Negative); Blood,Urine Trace (Negative); Color,Urine Light Yellow; Glucose,Urine (UA) Negative (Negative); Ketones,Urine Negative (Negative); Leukocyte Esterase,Urine Large (Negative); Mucus,Urine Rare /hpf; Nitrite,Urine Negative (Negative); Protein,Urine Trace (Negative); RBC,Urine 13 /hpf (0-5); Specific Gravity,Urine 1.014 (1.001-1.035); Squamous Epithelial Cell,Urine 3 /hpf (0-4); Urobilinogen,Urine <2.0 mg/dL (<2.0); WBC,Urine 44 /hpf (0-5)
[2020-08-20 08:36] LABS: Albumin 4.1 g/dL (3.5-5.0); Calcium 9.6 mg/dL (8.4-10.2); Potassium 4.3 mmol/L (3.5-5.1); Total Bilirubin 0.7 mg/dL (0.2-1.3)
== END | disposition home or self-care (01) ==
LOC: LABPAT 07:44
PROVIDERS: ATTEND Urology
DX: Z01.818 Encounter for other preprocedural examination (principal); N20.0 Calculus of kidney
CPT/HCPCS: 36415; 80053; 81001; 85025; 86850; 86870; 86880; 86900; 86901; 87086

== ENCOUNTER 2020-08-27 06:24 | Day surgery (SDC) | payer MEDICARE ==
[2020-08-22 09:41] VITALS: BMI 21.2
--- NOTE | 2020-08-25 19:55 | P.GSHP ---
History of Present Illness H&P Date: 08/25/20 85 yo female with kidney stones. She had a right pcnl in the late fall 2019. She has a staghorn calculous left and now comes for removal of it. The risks and complications have been explained understood and accepted. - Constitutional Constitutional: Denies chills, Denies fever - EENT Eyes: denies blurred vision, denies pain Ears, nose, mouth and throat: Denies headache, Denies sore throat - Cardiovascular Cardiovascular: Denies chest pain, Denies shortness of breath - Respiratory Respiratory: Denies cough, Denies 7 - Gastrointestinal Gastrointestinal: Denies abdominal pain, Denies diarrhea, Denies nausea, Denies vomiting - Genitourinary (Female) Genitourinary: Denies dysuria, Denies hematuria - Genitourinary (Male) Genitourinary: Denies dysuria, Denies hematuria - Musculoskeletal Musculoskeletal: Denies myalgias - Integumentary Integumentary: Denies pruritus, Denies rash - Neurological Neurological: Denies numbness, Denies weakness - Psychiatric Psychiatric: Denies anxiety, Denies depression - Endocrine Endocrine: Denies fatigue, Denies weight change Past Medical History Past Medical History: Coronary Artery Disease (CAD), Chest Pain / Angina, Hy pertension, Myocardial Infarction ([place]), Skin Disorder Additional Past Medical History / Comment(s): TIA-pt states never confirmed, psoriasis.kidney stones, Last Myocardial Infarction Date:: 2009 History of Any Multi-Drug Resistant Organisms: None Reported Past Surgical History: Coronary Bypass/CABG, Heart Catheterization, Joint Replacement, Tonsillectomy Additional Past Surgical History / Comment(s): 2009 CABG 4 vessel, bilateral cataract removals with lens implants.lithoptripsy, total Right hip Past Anesthesia/Blood Transfusion Reactions: Previous Problems w/ Anesthesia Additional Past Anesthesia/Blood Transfusion Reaction / Comment(s): states "hallucinations after surgery" unsure if caused by morphine Smoking Status: Never smoker - Past Family History Mother Family Medical History: No Reported History Additional Family Medical History / Comment(s): . Father Family Medical History: CVA/TIA Additional Family Medical History / Comment(s): Father had a surgical procedure with a CVA post op. He 5 yrs later at the age of 66yrs. Medications and Allergies Home Medications Medication Instructions Recorded Confirmed Type Aspirin EC [Ecotrin Low Dose] 81 mg PO HS 09/27/15 08/22/20 History amLODIPine [Norvasc] 5 mg PO DAILY 07/05/18 08/22/20 History Acetaminophen Tab [Tylenol] 650 mg PO Q4H PRN 03/26/20 08/22/20 History Metoprolol Tartrate [Lopressor] 25 mg PO HS 04/07/20 08/22/20 History Allergies Allergy/AdvReac Type Severity Reaction Status Date / Time morphine AdvReac Hallucinati Verified 08/22/20 09:36 ons Surgical - Exam - General well developed, well nourished, no distress - Eyes PERRL - ENT no hearing loss - Neck trachea midline - Respiratory normal expansion, normal respiratory effort - Cardiovascular Rhythm: regular - Abdomen Abdomen: soft, non tender - Integumentary no rash, no growths - Neurologic normal coordination, normal sensation - Musculoskeletal normal gait, normal posture - Psychiatric oriented to time, oriented to person, oriented to place, speech is normal, memory intact Results - Imaging Abdominal x-ray: report reviewed, image reviewed CT scan - abdomen: report reviewed, image reviewed CT scan - pelvis: report reviewed, image reviewed Assessment and Plan Assessment: Impression: Left staghorn calculous Plan: PCNL left , large
[~2020-08-27 06:24] MED LIST changes: -AMPICILLIN 1,000 MG in SODIUM CHLORIDE 0.9% 50 ML IVPB ONE; +AMPICILLIN 1,000 MG in SODIUM CHLORIDE 0.9% 50 ML IVPB PRN; -GENTAMICIN 68 MG in SODIUM CHLORIDE 0.9% 100 ML IVPB ONE; +GENTAMICIN 80 MG in SODIUM CHLORIDE 0.9% 100 ML IVPB PRN; -HYDROmorphone 0.5 MG/0.5 ML SYRINGE IVP PRN; +fentaNYL (PF) 50 MCG/ML 2 ML AMP IV PRN
--- NOTE | 2020-08-27 07:20 | XR ---
EXAMINATION TYPE: XR KUB DATE OF EXAM: 08/27/2020 Comparison: 04/09/2020 Clinical History: 85-year-old female preop left-sided kidney stones . Findings: Numerous clustered left renal calculi are present each one measuring up to 6 mm. A few right-sided re nal calculi measure up to 7 mm. A right ureteral stent is in place. There is a 5 mm calcification red emonstrated along the distal segment of the right ureteral stent which could represent a phlebolith o r calculus. Multiple pelvic phleboliths. Degenerated dextro convex scoliosis. Right hip hemiarthropla sty partially visualized. Nonobstructive bowel gas pattern. Moderate stool in the pelvis. Impression: 1. The previous larger 1.3 cm proximal right ureteral calculus is no longer seen. The right ureteral stent remains in place. Some underlying right renal calculi are noted measuring up to 7 mm. A 5 mm ca lcification along the distal aspect of the right ureteral stent probably represents a phlebolith, unc hanged from prior. 2. Innumerable clustered left renal collecting system calculi, each calculus measuring up to 6 mm.
[2020-08-27] MEDS: LACTATED RINGERS 1,000 ML IV SCH ×2 (07:39→13:15)
[2020-08-27] MEDS ORDERED: ONDANSETRON 4 MG/2 ML VIAL ONE (07:45)
[2020-08-27] MEDS ORDERED: ROCURONIUM 10 MG/ML (5 ML VIAL) IV ONE (07:57)
[2020-08-27] MEDS ORDERED: LIDOCAINE 1% INJ 10MG/ML (20 ML MDV) ONE (07:57)
[2020-08-27] MEDS ORDERED: PROPOFOL 10 MG/ML 20 ML VIAL IV ONE (07:57)
[2020-08-27] MEDS ORDERED: PHENYLEPHRINE-0.9% NACL SYG 1,000 MCG/10 ML SYRINGE ONE (07:57)
[2020-08-27] MEDS ORDERED: GENTAMICIN 40 MG/ML 2 ML VIAL ONE (07:57)
[2020-08-27] MEDS ORDERED: fentaNYL (PF) 50 MCG/ML 2 ML AMP ONE (07:57)
[2020-08-27] MEDS ORDERED: IOPAMIDOL-370 50ML BTL MISCELLANE ONE ×2 (07:59→08:15)
[2020-08-27] MEDS ORDERED: ACETAMINOPHEN TAB 325 MG TAB PO PRN ×2 (09:58→09:59)
[2020-08-27] MEDS ORDERED: ONDANSETRON 4 MG/2 ML VIAL IVP PRN (09:59)
[2020-08-27] MEDS ORDERED: MAG HYDROX/AL HYDROX/SIMETH 30 ML CUP PO PRN (09:59)
[2020-08-27] MEDS ORDERED: NALOXONE 0.4 MG/ML 1 ML VIAL IV PRN (10:01)
--- NOTE | 2020-08-27 10:01 | FL ---
EXAMINATION TYPE: FL Perc Nephrostomy New Access DATE OF EXAM: 08/27/2020 COMPARISON: CT scan dated 03/26/2020 HISTORY: Hydronephrosis, ureteral obstruction with multiple renal stones. PROCEDURE: Maximal barrier technique was utilized, hand hygiene obtained with soap and water and alcohol-based h and rub. The skin overlying the left kidney was localized using fluoroscopy and the overlying skin p repped and draped. Skin gideon was made with a scalpel. Access was gained under fluoroscopy, following placement of a ureteral occlusion balloon by the referring clinician and instillation of air in the renal collecting system with a 21-gauge needle to the left kidney. A suitable posterior calyx was ch osen. A 0.018 inch wire was advanced. The access site was dilated, access site was upsized, safety wire deployed and subsequently a sheath was advanced into the renal pelvis following dilation with b alloon along the tract. The patient underwent nephrolithotomy by the referring clinician. The patie nt remained in stable condition without complication. The patient was discharged to observation in t care of anesthesia. 6 minutes 36 seconds fluoroscopy time, 3 intraoperative images document the procedure IMPRESSION: STATUS POST NEPHROSTOMY PLACEMENT FOR NEPHROLITHOTOMY WITH FLUOROSCOPIC GUIDANCE. THIS PROCEDURE PER FORMED BY THE UNDERSIGNED.
--- NOTE | 2020-08-27 10:08 | P.OP ---
Date of Procedure: 08/27/20 Preoperative Diagnosis: Left renal stones, large Postoperative Diagnosis: Same, left UPJ obstruction Procedure(s) Performed: Cystoscopy, removal double-J catheter right, placement of occluding balloon catheter left, percutaneous nephrostomy (Dr. Houston percutaneous nephrostolithotomy (large greater than 3 cm), placement of antegrade stent, 7 x 26, 10-Kenyan nephrostomy Anesthesia: MINI Surgeon: Joaquin Forbes Estimated Blood Loss (ml): 25 Pathology: other (Stone) Condition: stable Disposition: PACU Indications for Procedure: The patient is 85. She has a history of infected stones. She had a UPJ obstruction on the right requiring a percutaneous nephrostolithotomy to remove the stone in an antegrade stent which will be removed today. She has is to 5 cm of stone in her renal pelvis and collecting system on the left side that needs to be removed. SHe comes for a percutaneous nephrostolithotomy on the left Description of Procedure: The patient is brought to the operating suite. She is given a general endotracheal anesthesia on the transport gurney. She's placed in a frog position with a sterile prep and drape. Cystoscopy Foroblique lens and 21- Kenyan sheath identifies a double-J catheter emanating from the right ureteral orifice. It is grasped and removed. I then identify the left ureteral orifice and passed a 5-Kenyan occluding balloon catheter up to the UPJ. The cystoscope removed. A 16-Kenyan Magana catheters introduced the bladder and secured to the ureteral catheter The patient is placed in prone position. Dr. Houston of radiology performed percutaneous access to a middle pole calyx on the left side. I then dilate the tract to 30-Kenyan. Introduced the rigid scope into the collecting system. There is minimal clot. There are multiple stones or grasp and removed. Probably greater than 30-40 stones that are removed. I then introduced the flexible nephroscope into the kidney in go through each calyx sequentially and with a 1.9 stone basket remove another dozen or so stones a. At the end of the procedure there are some calcifications remaining but I suspect these are tubular stones based on the fact that I looked throughout the whole collecting system and see no remaining stones and when I do an intraoperative nephrostogram I see no stones in the collecting system. I then introduced a wire down the UPJ obstruction identified on the left side. Over the wires and passed a 7 x 26 double-J catheter that coils in the bladder and in the renal pelvis. I then introduced a 10 J nephrostomy tube through the working sheath the coils in the renal pelvis. The position of both are noted fluoroscopically. I then secured the nephrostomy tube to the skin with 2-0 silk suture ligatures. The nephrostomy tubes attached a bag the wound is dressed the patient's awakened and returned recovery room good condition. Blood loss is 25 mL Impression successful removal of large stones left kidney. Placement of antegrade stent for left UPJ obstruction. The patient is in good condition will place in the hospital postoperatively.
[2020-08-27] MEDS ORDERED: ONDANSETRON 4 MG/2 ML VIAL IVP ONE (10:20)
[2020-08-27] MEDS: HYDROmorphone 0.5 MG/0.5 ML SYRINGE IVP ONE ×2 (10:23→10:31)
[2020-08-27] MEDS ORDERED: HYDROmorphone PCA 10 MG/50 ML BAG IV PRN (10:30)
[2020-08-27] MEDS ORDERED: SODIUM CHLORIDE 0.9% 1,000 ML IV ONE (10:52)
[2020-08-27] MEDS: DEXTROSE 5%-0.45% NACL 1,000 ML IV SCH ×2 (19:23→21:52)
[2020-08-27] MEDS ORDERED: METOPROLOL TARTRATE 25 MG TAB PO SCH (21:00)
[2020-08-28] MEDS: LACTATED RINGERS 1,000 ML IV SCH (05:40)
[2020-08-28 08:56] VITALS: BP 146/78; PULSE 93; RESP 16; TEMP 98.5
[2020-08-28] MEDS ORDERED: amLODIPine 5 MG TAB PO SCH (09:00)
--- NOTE | 2020-08-28 11:24 | P.DS ---
Providers Expected date of discharge: 08/28/20 Attending physician: Joaquin Forbes Primary care physician: [facility] Hospital Course: On the day of admission, the patient underwent an uncomplicated left percutaneous nephrolithotomy. Postoperatively, she remained afebrile with stable vital signs. On the first postoperative day, she reported minimal discomfort. She denied nausea and tolerated breakfast. Both the nephrostomy tube and Magana catheter were draining blood-tinged urine. Procedures: Left PCNL on 08/27/2020 Patient Condition at Discharge: Good Plan - Discharge Summary Discharge Rx Participant: No New Discharge Prescriptions: No Action Aspirin EC [Ecotrin Low Dose] 81 mg PO HS amLODIPine [Norvasc] 5 mg PO DAILY Acetaminophen Tab [Tylenol] 650 mg PO Q4H PRN PRN Reason: Pain Metoprolol Tartrate [Lopressor] 25 mg PO HS Discharge Medication List Aspirin EC [Ecotrin Low Dose] 81 mg PO HS 09/27/15 [History] amLODIPine [Norvasc] 5 mg PO DAILY 07/05/18 [History] Acetaminophen Tab [Tylenol] 650 mg PO Q4H PRN 03/26/20 [History] Metoprolol Tartrate [Lopressor] 25 mg PO HS 04/07/20 [History] Follow up Appointment(s)/Referral(s): Joaquin Forbes MD [STAFF PHYSICIAN] - 1 Week Activity/Diet/Wound Care/Special Instructions: Discharge home with left nephrostomy tube. Instruct patient to drain the nephrostomy tube bag. Drink plenty of fluids. Hold aspirin. Discharge Disposition: HOME SELF-CARE
== END 2020-08-28 13:00 | disposition home or self-care (01) ==
LOC: OR 06:24 → 6PED 09:44 → OR 08-28 13:00
PROVIDERS: ATTEND Urology
DX: N20.0 Calculus of kidney (principal); I25.10 Atherosclerotic heart disease of native coronary artery without angina pectoris; I10 Essential (primary) hypertension; I25.2 Old myocardial infarction; E78.5 Hyperlipidemia, unspecified; L40.9 Psoriasis, unspecified; Z87.442 Personal history of urinary calculi; Z95.1 Presence of aortocoronary bypass graft; Z98.42 Cataract extraction status, left eye; Z98.41 Cataract extraction status, right eye; Z96.1 Presence of intraocular lens; Z97.2 Presence of dental prosthetic device (complete) (partial); Z96.641 Presence of right artificial hip joint; Z98.890 Other specified postprocedural states; Z90.89 Acquired absence of other organs; Z82.3 Family history of stroke; Z79.82 Long term (current) use of aspirin; Z79.899 Other long term (current) drug therapy; Z88.5 Allergy status to narcotic agent
CPT/HCPCS: 94760; 82365; 50432; 74018; 50081; C2625; C1769 ×4; C2628; C1729 ×2; C1894; J1580; J2405; J2001; J3010; J0290; J2370; J2704; J1170 ×2; Q9967; 86850; 86870; 86880; 86900; 86901

== ENCOUNTER → 2020-12-01 | Outpatient (CLI) | payer MEDICARE ==
--- NOTE | 2020-12-01 15:11 | US ---
EXAMINATION TYPE: US kidneys/renal and bladder DATE OF EXAM: 12/01/2020 COMPARISON: CT 03/26/2020 CLINICAL HISTORY: 85-year-old female N13.30 HYDRONEPHROSIS. History renal stones and hydronephrosis. No pain. TECHNIQUE: Multiple sonographic images of the kidneys and bladder are obtained. FINDINGS: EXAM MEASUREMENTS: Right Kidney: 9.0 x 3.5 x 4.3 cm Left Kidney: 10.3 x 4.6 x 4.5 cm Right Kidney: Multiple echogenic foci seen throughout kidney, with largest in the midpole measuring 0 .7 cm. Left Kidney: Mild to moderate hydronephrosis. Appears enlarged compared to contralateral kidney. Mul tiple echogenic foci seen throughout kidney with largest in the lower pole measuring 0.8 cm. Bladder: distended, anechoic Bilateral Jets not seen. IMPRESSION: 1. Extensive bilateral nephrolithiasis. 2. No hydronephrosis evident on the right. 3. Mild to moderate hydronephrosis on the left. When correlating with the patient's 03/26/2020 CT, a U PJ stricture is a possibility.
== END | disposition home or self-care (01) ==
LOC: RADUSWWP 12:41
PROVIDERS: ATTEND Urology
DX: N13.2 Hydronephrosis with renal and ureteral calculous obstruction (principal)
CPT/HCPCS: 76770

== ENCOUNTER 2022-11-07 05:15 | Inpatient (IN) | payer MEDICARE ==
[2022-11-07] MEDS ORDERED: KETOROLAC 15 MG/ML 1 ML VIAL IVP STA (06:44)
--- NOTE | 2022-11-07 06:53 | ED ---
Fall HPI - General Chief Complaint: Fall Stated Complaint: LEFT SIDE HIP PAIN Time Seen by Provider: 11/07/22 06:00 Source: patient, family (son) Mode of arrival: ambulatory (son) - History of Present Illness Initial Comments: Patient is an 87-year-old female presenting to the emergency room after a slip and fall on her kitchen during the night. She reports landing on her front side without any trauma to her head. She is complaining of intermittent pain in her left lower extremity radiating from the hip down the leg intermittently. She denies any numbness or tingling or deformity of the left leg. She also complains of pain in the left wrist and left hand with deformity and ecchymosis noted. Splint with Jericho wrap applied by EMS intact upon initial evaluation, removed for complete evaluation of left upper extremity. She denies any other extremity injury. She denies any loss of consciousness prior to or after the fall. She denies any headache, dizziness, nausea or vomiting. She has past medical history significant for CAD, hypertension, hyperlipidemia, psoriasis, renal stones and TIA. - Related Data Home Medications Medication Instructions Recorded Confirmed Aspirin EC [Ecotrin Low Dose] 81 mg PO HS 09/27/15 08/27/20 amLODIPine [Norvasc] 5 mg PO DAILY 07/05/18 08/27/20 Acetaminophen Tab [Tylenol] 650 mg PO Q4H PRN 03/26/20 08/27/20 Metoprolol Tartrate [Lopressor] 25 mg PO HS 04/07/20 08/27/20 Allergies Allergy/AdvReac Type Severity Reaction Status Date / Time morphine AdvReac Hallucinati Verified 11/07/22 05:34 ons Review of Systems ROS Statement: Those systems with pertinent positive or pertinent negative responses have been documented in the HPI. ROS Other: All systems not noted in ROS Statement are negative. Past Medical History Past Medical History: Coronary Artery Disease (CAD), Chest Pain / Angina, Hyperlipidemia, Hypertension, Myocardial Infarction ([place]), Skin Disorder Additional Past Medical History / Comment(s): TIA-pt states never confirmed, psoriasis.kidney stones, past stress test Last Myocardial Infarction Date:: 2009 History of Any Multi-Drug Resistant Organisms: None Reported Past Surgical History: Coronary Bypass/CABG, Heart Catheterization, Orthopedic Surgery, Tonsillectomy Additional Past Surgical History / Comment(s): 2009 CABG 4 vessel, bilateral cataract removals with lens implants.lithoptripsy. Right hip Past Anesthesia/Blood Transfusion Reactions: No Reported Reaction Additional Past Anesthesia/Blood Transfusion Reaction / Comment(s): states "hallucinations after surgery" Past Psychological History: Anxiety Smoking Status: Never smoker Past Alcohol Use History: None Reported Past Drug Use History: None Reported - Past Family History Mother Family Medical History: No Reported History Additional Family Medical History / Comment(s): . Father Family Medical History: CVA/TIA Additional Family Medical History / Comment(s): Father had a surgical procedure with a CVA post op. He 5 yrs later at the age of 66yrs. General Exam Limitations: no limitations General appearance: alert, in no apparent distress Head exam: Present: atraumatic, normocephalic, normal inspection Eye exam: Present: normal appearance, PERRL, EOMI. Absent: scleral icterus, conjunctival injection, periorbital swelling ENT exam: Present: normal exam, mucous membranes moist, normal external ear exam, other (Endentureless) Neck exam: Present: normal inspection, full ROM Respiratory exam: Absent: respiratory distress, accessory muscle use Cardiovascular Exam: Present: regular rate GI/Abdominal exam: Present: soft. Absent: distended, tenderness Left Forearm Wrist exam: Present: tenderness, deformity, tenderness over anatomical snuff box. Absent: full ROM, swelling Hand Wrist exam: Present: tenderness, swelling, ecchymosis, deformity. Absent: full ROM Vascular: Present: radial pulse (2+). Absent: vascular compromise Left Hip exam: Present: tenderness, external rotation (slightly), shortening. Absent: full ROM (Limited by pain), ecchymosis, deformity, crepitus, dislocation Knee exam: Present: normal inspection, full ROM. Absent: tenderness, swelling, laceration, deformity Lower Leg exam: Present: normal inspection, full ROM. Absent: tenderness, swelling, laceration, ecchymosis, deformity Foot/Toe exam: Present: normal inspection. Absent: tenderness, swelling, abrasion, laceration, ecchymosis Neurovascular tendon exam: Present: no vascular compromise Gait: not tested/not observed Back exam: Present: normal inspection Neurological exam: Present: alert, oriented X3, CN II-XII intact Psychiatric exam: Present: normal affect, normal mood Skin exam: Present: other (Ecchymosis left hand distal to thumb) Course Vital Signs 11/07/22 05:26 Temperature 98 F Pulse Rate 75 Respiratory 17 Rate Blood Pressure 130/71 O2 Sat by Pulse 99 Oximetry Procedures - Orthopedic Splinting/Casting Injury #1 Side: left Upper Extremity Injury Location: wrist Upper Extremity Immobilizer: wrist splint, Jericho wrap Medical Decision Making - Medical Decision Making Was pt. sent in by a medical professional or institution (, PA, QUICK MIXER OPERATOR, urgent care, hospital, or jail...) When possible be specific @ -No Did you speak to anyone other than the patient for history (EMS, parent, family, police, friend...)? What history was obtained from this source @ -Yes, son at bedside provided confirmation of events post fall Did you review nursing and triage notes (agree or disagree)? Why? @ -I reviewed and agree with nursing and triage notes Were old charts reviewed (outside hosp., previous admission, EMS record, old EKG, old radiological studies, urgent care reports/EKG's, jail records)? Report findings @ -No old charts were reviewed Differential Diagnosis (chest pain, altered mental status, abdominal pain women, abdominal pain men, vaginal bleeding, weakness, fever, dyspnea, syncope, headache, dizziness, GI bleed, back pain, seizure, CVA, palpatations, mental health, musculoskeletal)? @ -Differential Musculoskeletal Muscular strain, contusion, ligament sprain, fracture, arthritis, septic arthritis, bursitis, cellulitis, muscle spasm, nerve compression, DVT, arterial occlusion, herpes zoster, electrolyte abnormality, tumor.... This is not meant to be in all inclusive list EKG interpreted by me (3pts min.). @ -None done X-rays interpreted by me (1pt min.). @ -X-ray hip and pelvis: Left subcapital hip fracture. Right hip prosthesis intact. No other fractures noted. X-ray left wrist: Distal metaphyseal radius fracture with mild dorsal angulation. Chest x-ray: Sternal wiring intact. No acute cardiopulmonary process. No consolidation or effusion. CT interpreted by me (1pt min.). @ -None done U/S interpreted by me (1pt. min.). @ -None done What testing was considered but not performed or refused? (CT, X-rays, U/S, labs)? Why? @ -No indication for CT of the brain is no loss of consciousness or head trauma and lack of thinner usage. What meds were considered but not given or refused? Why? @ -None Did you discuss the management of the patient with other professionals (professionals i.e. , PA, QUICK MIXER OPERATOR, lab, RT, psych nurse, director social service, sanforizer, teacher, security officer, case management coordinator)? Give summary @ -No Was smoking cessation discussed for >3mins.? @ -No Was critical care preformed (if so, how long)? @ -No Were there social determinants of health that impacted care today? How? (Homelessness, low income, unemployed, alcoholism, drug addiction, transportation, low edu. Level, literacy, decrease access to med. care, [facility], rehab)? @ -No Was there de-escalation of care discussed even if they declined (Discuss DNR or withdrawal of care, Hospice)? DNR status @ -No What co-morbidities impacted this encounter? (DM, HTN, Smoking, COPD, CAD, Cancer, CVA, ARF, Chemo, Hep., AIDS, mental health diagnosis, sleep apnea, morbid obesity)? @ -None Was patient admitted / discharged? Hospital course, mention meds given and route, prescriptions, significant lab abnormalities, going to OR and other pe rtinent info. @ -A 7-year-old female presenting to the emergency room via EMS after slip and fall. Pain to left lower extremity that is intermittent along with left hand and wrist. X-rays ordered and obtained by triage and position of hip pelvis, left wrist and chest. Will give Toradol for pain. ALLERGY to morphine noted though per patient's response is adverse rather than ALLERGIC. Continued pain after IM Toradol will give IV Tylenol in the setting of opiate "ALLERGY." X-ray left hip and pelvis reveals subcapital fracture of left hip. X-ray left wrist reveals right radial fracture. Splint applied to left wrist without complications. Neurovascularly intact pre-and post-splint application. Spoke with Dr. David solids control technician for orthopedic trauma services. He was advised of patient's fall and evaluation results. He is accepting of admission and advised to place medicine on for medical management. He denies any further orders at this time will order admission labs of CBC, CMP and coags for potential surgerical intervention. Will admit patient in stable condition to medical surgical call unit under trauma orthopedic services with medical management consult status post fall with fracture to left wrist and left hip. Undiagnosed new problem with uncertain prognosis? @ -No Drug Therapy requiring intensive monitoring for toxicity (Heparin, Nitro, Insulin, Cardizem)? @ -No Were any procedures done? @ -Yes,Wrist splint applied to left wrist. Diagnosis/symptom? @ -Fall Acute, or Chronic, or Acute on Chronic? @ -Acute Uncomplicated (without systemic symptoms) or Complicated (systemic symptoms)? @ -Complicated Side effects of treatment? @ -No Exacerbation, Progression, or Severe Exacerbation? @ -No Poses a threat to life or bodily function? How? (Chest pain, [place], CA, pneumonia, PE, COPD, DKA, ARF, appy, cholecystitis, CVA, Diverticulitis, Homicidal, Suicidal, threat to staff... and all critical care pts) @ -Yes, multiple fractures. Diagnosis/symptom? @ -Left radial fracture Acute, or Chronic, or Acute on Chronic? @ -Acute Uncomplicated (without systemic symptoms) or Complicated (systemic symptoms)? @ -Uncomplicated Side effects of treatment? @ -none Exacerbation, Progression, or Severe Exacerbation] @ -no Poses a threat to life or bodily function? @ -no Diagnosis/symptom? @ -Left hip fracture Acute, or Chronic, or Acute on Chronic? @ -Acute Uncomplicated (without systemic symptoms) or Complicated (systemic symptoms)? @ -Complicated Side effects of treatment? @ -none Exacerbation, Progression, or Severe Exacerbation] @ -no Poses a threat to life or bodily function? @ -Yes, fracture, preventing ambulation leading to worsening debility. Case discussed with Dr. Hernandez. - Lab Data Result diagrams: 11/07/22 09:50 11/07/22 09:50 - Radiology Data Radiology results: report reviewed, image reviewed Disposition Clinical Impression: Fall, Subcapital fracture of left hip, Right radial fracture Disposition: ADMITTED IP TO THIS [facility] Condition: Stable Time of Disposition: 08:55
[2022-11-07] MEDS ORDERED: ACETAMINOPHEN IV (For NPO) 1,000 MG in EMPTY BAG 1 BAG IVPB STA (07:48)
--- NOTE | 2022-11-07 08:36 | XR ---
EXAMINATION TYPE: XR Hip LT and AP Pelvis DATE OF EXAM: 11/07/2022 COMPARISON: None HISTORY: Fall, pain TECHNIQUE: 2 view left hip supplemented with AP pelvis FINDINGS: There is a left hip subcapital fracture. Left femoral head articulates with the acetabulum. Right hip prosthesis is present. No additional fractures are evident. IMPRESSION: 1. Subcapital fracture left hip
--- NOTE | 2022-11-07 08:38 | XR ---
EXAMINATION TYPE: XR wrist complete LT DATE OF EXAM: 11/07/2022 COMPARISON: HISTORY: Fall, pain TECHNIQUE: 3 view left wrist FINDINGS: There is a fracture of the distal metaphyseal radius. Some posterior angulation is present. Diffuse soft tissue swelling is present. Ulnar styloid avulsion is evident. This has smooth cortical margins and may be old. No additional fractures are evident. Vascular calcification is noted. Structures are somewhat osteope bunny. IMPRESSION: 1. Fracture of the distal metaphyseal radius with mild dorsal angulation. 2. Old avulsion ulnar styloid.
--- NOTE | 2022-11-07 08:39 | XR ---
EXAMINATION TYPE: XR chest 1V DATE RECEIVED ON: 11/07/2022 DATE PERFORMED: 11/07/2022 COMPARISON: 07/05/2018 HISTORY: Left wrist fractures TECHNIQUE: Frontal view of the chest is obtained. FINDINGS: The heart size is normal. The pulmonary vasculature is normal. The lungs are clear. Prio r sternotomy wires are evident. IMPRESSION: 1. No acute cardiopulmonary process.
[2022-11-07] MEDS ORDERED: ACETAMINOPHEN TAB 325 MG TAB PO PRN (09:06)
[2022-11-07] MEDS ORDERED: NALOXONE 0.4 MG/ML 1 ML VIAL IV PRN (09:06)
[2022-11-07] MEDS ORDERED: traMADol 50 MG TAB PO PRN (09:06)
[2022-11-07] MEDS ORDERED: amLODIPine 5 MG TAB PO SCH (10:00)
[2022-11-07 10:02] LABS: Basophils % (A) 0 %; Eosinophils # (A) 0.1 k/uL (0-0.7); Eosinophils % (A) 1 %; HCT 41.1 % (34.0-46.0); HGB 13.8 gm/dL (11.4-16.0); Lymphocytes # (A) 0.5 k/uL (1.0-4.8); Lymphocytes % (A) 5 %; MCH 32.6 pg (25.0-35.0); MCHC 33.6 g/dL (31.0-37.0); Mean Platelet Volume 8.6; Monocytes # (A) 0.3 k/uL (0-1.0); Monocytes % (A) 3 %; Neutrophils # (A) 11.2 k/uL (1.3-7.7); Neutrophils % (A) 92 %; Platelet Count 191 k/uL (150-450); RBC 4.23 m/uL (3.80-5.40); RDW 12.8 % (11.5-15.5); WBC 12.2 k/uL (3.8-10.6)
[2022-11-07 10:14] LABS: Albumin 3.9 g/dL (3.5-5.0); Calcium 9.2 mg/dL (8.4-10.2); Potassium 4.1 mmol/L (3.5-5.1); Total Bilirubin 0.8 mg/dL (0.2-1.3); Total Protein 6.5 g/dL (6.3-8.2)
[2022-11-07 10:17] LABS: INR 0.9 (<1.2); Prothrombin Time 10.1 sec (9.0-12.0)
[2022-11-07] MEDS ORDERED: MORPHINE SULFATE 4 MG/ML SYRINGE IVP PRN (12:11)
--- NOTE | 2022-11-07 12:26 | P.CONS ---
History of Present Illness - Reason for Consult Consult date: 11/07/22 Medical management Requesting physician: Drake David - Chief Complaint Slip and Fall - History of Present Illness History of Presenting Illness: Patient is a very pleasant 87-year-old female with a past medical history of CAD status post CABG 4 in 2009, hypertension, hyperlipidemia, and TIA. She presented to the emergency department status post slip and fall. Patient reports she slipped and fell in her kitchen floor landing onto her left side. She denies hitting her head or having any loss of consciousness. She underwent full evaluation in the emergency department. Labs completed and reviewed. CBC showing leukocytosis with WBC count of 12.2. BMP revealing mild prerenal azotemia with BUN of 20. Glucose 108. Liver profile revealing slightly elevated AST of 39. Coagulation profile normal findings. X-ray left hip revealed a subcapital fracture of left hip. X-ray left wrist showing a fracture of distal metaphyseal radius with mild dorsal angulation and an old avulsion ulnar styloid fracture. Chest x-ray was completed showing no signs of acute cardiopulmonary process. Patient currently reports controlled pain to left wrist and left hip. She denies having any headache, lightheadedness, dizziness, chest pain, palpitations, shortness of breath, or any other complaints at this time. Patient was admitted under orthopedic surgery team and we have been consulted for medical management throughout patient's hospitalization. Review of systems: Pertinent positives and negatives as discussed in HPI, a complete review of systems was performed and all other systems are negative. Physical exam: Vital signs reviewed and stable. General: Nontoxic, no distress and appears stated age. Thin build. Derm: Skin warm and dry, normal coloration for ethnicity. Head: Atraumatic, normocephalic and symmetric. Eyes: EOMs intact, no lid lag, and anicteric sclera Mouth: no lip lesions, mucus membranes moist Cardiovascular: regular rate and rhythm with normal S1S2, no murmur, positive posterior tibial pulses bilaterally, and cap refill < 2 seconds. Lungs: Respirations even, regular, and unlabored on room air. Lungs CTA bilatera lly, no rhonchi, no rales, no wheezing, and no accessory muscle usage. Abdominal: soft, nontender to palpation, no guarding, no appreciable organomegaly Ext: Movement and sensation intact No gross muscle atrophy, no edema, no contractures. Splint in place left hand and wrist. Neuro: Speech clear, face symmetrical and CN II-XII grossly intact with no noted focal neuro deficits Psych: Alert and oriented to person, place, time, and situation. Appropriate and pleasant affect. Assessment and Plan of Care: Presurgical clearance Left Hip subcapital fracture Distal metaphyseal radius fracture with dorsal angulation -Order placed for EKG and upon revealed showing sinus rhythm at 75 bpm with a le ft bundle branch block and occasional PACs, no noted ST abnormalities noted upon personal review and interpretation. Upon review of previous EKG completed 03/26/20 EKG showing normal sinus rhythm at 85 bpm with no previous left bundle branch block noted. -METS score > 4. Patient reports living alone and able to perform her ADLs independently prior to slip and fall. -Pal Perioperative Risk calculator is calculating a 0.9% risk of myocardial infarction or cardiac arrest intraoperatively or up to 30 days postoperatively. -Discussed with orthopedic surgery, recommending patient undergo cardiac clearance prior to surgery secondary to findings of left bundle branch block on EKG. -Auto Apprentice Mechanic was notified of need for cardiac clearance. History of CAD status post CABG 4 Hypertension Hyperlipidemia History of TIA -EKG showing sinus rhythm at 75 bpm with a left bundle branch block and oc casional PACs, no noted ST abnormalities noted upon personal review and interpretation. Upon review of previous EKG completed 03/26/20 EKG showing normal sinus rhythm at 85 bpm with no previous left bundle branch block noted. -Patient to continue with cardiac medication regimen with amlodipine 10 mg daily and metoprolol 25 mg nightly. -Patient denies cardiac complaints at this time. She denies having any dizziness/lightheadedness prior to fall. Patient reports it was a slip and fall. Thank you for allowing us to participate in the care of this pleasant patient. Do not hesitate to contact us with questions. Someone can be reached from the [facility] hospitalist group all hours of the day at [phone] or via [employer] serve. Patient was seen independently by Nurse Practitioner. This document was prepared using [employer] dictation software. Please allow for errors in felter tennis balls while rare they do occur. Past Medical History Past Medical History: Coronary Artery Disease (CAD), Chest Pain / Angina, Hyperlipidemia, Hypertension, Myocardial Infarction ([place]), Skin Disorder Additional Past Medical History / Comment(s): TIA-pt states never confirmed, psoriasis.kidney stones, past stress test Last Myocardial Infarction Date:: 2009 History of Any Multi-Drug Resistant Organisms: None Reported Past Surgical History: Coronary Bypass/CABG, Heart Catheterization, Orthopedic Surgery, Tonsillectomy Additional Past Surgical History / Comment(s): 2009 CABG 4 vessel, bilateral cataract removals with lens implants.lithoptripsy. Right hip Past Anesthesia/Blood Transfusion Reactions: No Reported Reaction Additional Past Anesthesia/Blood Transfusion Reaction / Comm: states "hallucinations after surgery" Past Psychological History: Anxiety Smoking Status: Never smoker Past Alcohol Use History: None Reported Past Drug Use History: None Reported - Past Family History Mother Family Medical History: No Reported History Additional Family Medical History / Comment(s): . Father Family Medical History: CVA/TIA Additional Family Medical History / Comment(s): Father had a surgical procedure with a CVA post op. He 5 yrs later at the age of 66yrs. Medications and Allergies Home Medications Medication Instructions Recorded Confirmed Type Aspirin EC [Ecotrin Low Dose] 81 mg PO DAILY 09/27/15 11/07/22 History Acetaminophen Tab [Tylenol] 325 mg PO Q4H PRN 03/26/20 11/07/22 History Metoprolol Succinate [Metoprolol 25 mg PO DAILY 11/07/22 11/07/22 History Succinate ER] amLODIPine [Norvasc] 10 mg PO DAILY 11/07/22 11/07/22 History Allergies Allergy/AdvReac Type Severity Reaction Status Date / Time morphine AdvReac Hallucinati Verified 11/07/22 13:10 ons Physical Exam Vitals: Vital Signs Temp Pulse Resp BP Pulse Ox 11/07/22 05:26 98 F 75 17 130/71 99 Intake and Output 11/06/22 11/07/22 11/07/22 22:59 06:59 14:59 Other: Weight 54.431 kg Results CBC & Chem 7: 11/07/22 09:50 11/07/22 09:50
[2022-11-07] MEDS ORDERED: amLODIPine 5 MG TAB PO ONE (14:00)
[2022-11-07] MEDS: ACETAMINOPHEN IV (For NPO) 1,000 MG in EMPTY BAG 1 BAG IVPB SCH ×2 (16:07→20:45)
[2022-11-07] MEDS: METOPROLOL SUCCINATE (ER) 25 MG TAB.ER.24H PO SCH (20:45)
[2022-11-07] MEDS ORDERED: METOPROLOL TARTRATE 25 MG TAB PO SCH (21:00)
[2022-11-08] MEDS: ACETAMINOPHEN IV (For NPO) 1,000 MG in EMPTY BAG 1 BAG IVPB SCH ×2 (01:28→08:00)
[2022-11-08] MEDS: amLODIPine 10 MG TAB PO SCH (08:01)
--- NOTE | 2022-11-08 08:52 | P.PN ---
Subjective Progress Note Date: 11/08/22 Hospital Course: Patient is a very pleasant 87-year-old female with a past medical history of CAD status post CABG 4 in 2009, hypertension, hyperlipidemia, and TIA. She presented to the emergency department status post slip and fall. Patient reports she slipped and fell in her kitchen floor landing onto her left side. She denies hitting her head or having any loss of consciousness. She underwent full evaluation in the emergency department. Labs completed and reviewed. CBC showing leukocytosis with WBC count of 12.2. BMP revealing mild prerenal azotemia with BUN of 20. Glucose 108. Liver profile revealing slightly elevated AST of 39. Coagulation profile normal findings. X-ray left hip revealed a subcapital fracture of left hip. X-ray left wrist showing a fracture of distal metaphyseal radius with mild dorsal angulation and an old avulsion ulnar styloid fracture. Chest x-ray was completed showing no signs of acute cardiopulmonary process. Patient currently reports controlled pain to left wrist and left hip. She denies having any headache, lightheadedness, dizziness, chest pain, palpitations, shortness of breath, or any other complaints at this time. Patient was admitted under orthopedic surgery team and we have been consulted for medical management throughout patient's hospitalization. Physical exam: Vital signs reviewed and stable. General: Nontoxic, no distress and appears stated age. Thin build. Derm: Skin warm and dry, normal coloration for ethnicity. Head: Atraumatic, normocephalic and symmetric. Eyes: EOMs intact, no lid lag, and anicteric sclera Mouth: no lip lesions, mucus membranes moist Cardiovascular: regular rate and rhythm with normal S1S2, no murmur, positive posterior tibial pulses bilaterally, and cap refill < 2 seconds. Lungs: Respirations even, regular, and unlabored on room air. Lungs CTA bilaterally, no rhonchi, no rales, no wheezing, and no accessory muscle usage. Abdominal: soft, nontender to palpation, no guarding, no appreciable organomegaly Ext: Movement and sensation intact No gross muscle atrophy, no edema, no contractures. Splint in place left hand and wrist. Neuro: Speech clear, face symmetrical and CN II-XII grossly intact with no noted focal neuro deficits Psych: Alert and oriented to person, place, time, and situation. Appropriate and pleasant affect. Assessment and Plan of Care: Presurgical clearance Left Hip subcapital fracture Distal metaphyseal radius fracture with dorsal angulation -Order placed for EKG and upon revealed showing sinus rhythm at 75 bpm with a left bundle branch block and occasional PACs, no noted ST abnormalities noted upon personal review and interpretation. Upon review of previous EKG completed 03/26/20 EKG showing normal sinus rhythm at 85 bpm with no previous left bundle branch block noted. -Morning labs reviewed. CBC unremarkable. BMP and magnesium also unremarkable at this time. -METS score > 4. Patient reports living alone and able to perform her ADLs independently prior to slip and fall. -RN OTOLARYNGOLOGY score 13 point showing a 2.4% risk of perioperative mortality. -Pal Perioperative Risk calculator is calculating a 0.9% risk of myocardial infarction or cardiac arrest intraoperatively or up to 30 days postoperatively. -From a medical perspective, patient may proceed with surgery. -Discussed with orthopedic surgery, recommending patient undergo cardiac clearance prior to surgery secondary to findings of left bundle branch block on EKG. -Refrigeration Insulator was notified of urgent need for cardiac clearance and discussed EKG findings and plan with automobile spring repairer. Refrigeration Insulator, Dr. Madrigal states he will start patient on 0.9% normal saline at 50 mL's per hour and although she has moderate to high risk candidate for surgical interventions there are no absolute cardiac contraindications to proceed with surgical intervention.. History of CAD status post CABG 4 Hypertension Hyperlipidemia History of TIA -EKG showing sinus rhythm at 75 bpm with a left bundle branch block and o ccasional PACs, no noted ST abnormalities noted upon personal review and interpretation. Upon review of previous EKG completed 03/26/20 EKG showing normal sinus rhythm at 85 bpm with no previous left bundle branch block noted. -Patient to continue with cardiac medication regimen with amlodipine 10 mg daily and metoprolol 25 mg nightly. -Patient denies cardiac complaints at this time. She denies having any dizziness/lightheadedness prior to fall. Patient reports it was a slip and fall. Thank you for allowing us to participate in the care of this pleasant patient. Do not hesitate to contact us with questions. Someone can be reached from the [facility] [place] hospitalist group all hours of the day at [phone] or via perfect serve. Patient was seen independently by Nurse Practitioner. This document was prepared using Sym[employer]ified dictation software. Please allow for errors in life sciences teacher while rare they do occur. Objective - Vital Signs Vital signs: Vital Signs Temp 97.7 F 11/08/22 07:46 Pulse 82 11/08/22 07:46 Resp 18 11/08/22 01:19 BP 124/78 11/08/22 07:46 Pulse Ox 98 11/08/22 07:46 FiO2 Intake & Output 11/07/22 11/08/22 11/08/22 18:59 06:59 18:59 Output Total 0 400 Balance 0 -400 Weight 54.431 kg Output: Urine 0 400 Other: Voiding Method External Catheter - Labs CBC & Chem 7: 11/08/22 04:30 11/08/22 04:30 Labs: Abnormal Lab Results - Last 24 Hours (Table) 11/07/22 11/07/22 Range/Units 09:50 09:50 WBC 12.2 H (3.8-10.6) k/uL Neutrophils # 11.2 H (1.3-7.7) k/uL Lymphocytes # 0.5 L (1.0-4.8) k/uL Chloride 108 H (98-107) mmol/L BUN 20 H (7-17) mg/dL Glucose 108 H (74-99) mg/dL AST 39 H (14-36) U/L
[2022-11-08 09:48] LABS: African American GFR (CKD) 66.6 (60.0-200.0); Albumin 3.6 g/dL (3.8-4.9); Albumin/Globulin Ratio 1.57 (1.60-3.17); Anion Gap 12.2 mmol/L (10.00-18.00); BUN/Creat Ratio 15.44 Ratio (12.00-20.00); Blood Urea Nitrogen 13.9 mg/dL (9.0-27.0); Calcium 8.7 mg/dL (8.7-10.3); Carbon Dioxide 19.8 mmol/L (20.0-27.5); Globulin 2.3 g/dL (1.6-3.3); Magnesium 1.8 mg/dL (1.5-2.4); Non-African American GFR(CKD) 57.5 (60.0-200.0); Total Bilirubin 0.8 mg/dL (0.30-1.20); Total Protein 5.9 g/dL (6.2-8.2)
[2022-11-08 10:38] LABS: HCT 42.7 % (37.2-46.3); HGB 14.1 g/dL (12.0-15.0); NRBC Per 100 WBC 0 /100 WBCS (0.0-0.0); Platelet Count 180 X 10*3/uL (140-440); RBC 4.27 X 10*6/uL (4.10-5.20); RDW 12.6 % (11.5-14.5); WBC 8.73 X 10*3/uL (4.50-10.00)
--- NOTE | 2022-11-08 10:40 | P.CRDCN ---
History of Present Illness Consult date: 11/08/22 Reason for Consult (text): cardiac clearance for surgery History of present illness: This is an 87-year-old female patient of Dr. Maricarmen Velázquez with past medical history significant for coronary artery disease status post four-vessel bypass grafting in 2009 with a JACK to LAD, SVG to OM1, SVG to OM 2 and SVG to RCA. She also has hypertension, dyslipidemia and has had a TIA in the past. we have been asked to see her in consultation for preoperative evaluation. She presented to the hospital yesterday after suffering a fall in her kitchen. This was a slip and fall. No head trauma. Patient complaining of pain in the left lower extremity and found to have a left femoral neck fracture and is scheduled for left hip hemiarthroplasty today with Dr. David. Patient denies having any chest pain, no shortness of breath, no palpitations. She states that she is fairly active with a walker. EKG sinus rhythm with left ventricular hypertrophy Chest x-ray negative WBC 12.2, hemoglobin 13.8, platelet count 192. Sodium 138, potassium 4, chlori de 108, BUN 13, creatinine 0.9. Blood sugar 115. Calcium 8.7, magnesium 1.8, liver function tests are normal. Home cardiac medications: Amlodipine 10 mg daily, aspirin 81 mg daily, Toprol-XL 25 mg daily Echocardiogram 06/2018: EF 55-60%, trace to mild mild mitral regurgitation, mild tricuspid regurgitation, mild pulmonary hypertension, RVSP 48.71 mmHg. Lexiscan stress test 2017: No evidence of reversible ischemia. At the time of my exam: CONSTITUTIONAL: Denies fever. Denies chills. EYES: Denies blurred vision. Denies vision changes. Denies eye pain. EARS, NOSE, MOUTH & THROAT: Denies headache. Denies sore throat. Denies ear pain. CARDIOVASCULAR: Denies chest pain. Denies shortness of breath. Denies orthopnea. Denies PND. Denies palpitations. RESPIRATORY: Denies cough. GASTROINTESTINAL: Denies abdominal pain. Denies diarrhea. Denies constipation. Denies nausea. Denies vomiting. MUSCULOSKELETAL: Denies myalgias.left wrist and hip discomfort. INTEGUMENTARY: Denies pruitis. Denies rash. NEUROLOGIC: Denies numbness. Denies tingling. Denies weakness. ENDOCRINE: Denies fatigue. Denies weight change. Denies polydipsia. Denies polyurina. GENITOURINARY: Denies burning, hematuria or urgency with micturation. HEMATOLOGIC: Denies history of anemia. Denies bleeding. GENERAL: This is a 87-year-old female in no apparent distress at the time of my examination. HEENT: Head is atraumatic, normocephalic. Pupils are equal, round. Sclerae anicteric. Conjunctivae are clear. Mucous membranes of the mouth are somewhat dry. Neck is supple. There is no jugular venous distention. No carotid bruit is heard. LUNGS: Clear to auscultation no wheezes, rales or rhonchi. No chest wall tende rness is noted on palpation or with deep breathing. HEART: Regular rate and rhythm without murmurs, rubs or gallops. S1 and S2 heard. ABDOMEN: Soft, nontender. Bowel sounds are heard. No organomegaly noted. EXTREMITIES: No evidence of peripheral edema and no calf tenderness noted. VASCULAR: Radial and dorsalis pedis pulses palpated, no evidence of clubbing. NEUROLOGIC: Patient is awake, alert and oriented x3. ASSESSMENT Mechanical fall Left femoral neck fracture Left radial fracture History of coronary artery disease status post bypass grafting Hypertension Pulmonary hypertension, RVSP 48 mmHg Dyslipidemia, statin has been discontinued in the past for elevated liver enzymes. PLAN Resume patient's home cardiac medications Patient on IV fluid 0.9 normal saline at 50 mL per hour. She has no symptoms suggestive of angina and is currently euvolemic. She is a moderate to high risk patient for surgical intervention secondary to multiple comorbid conditions. However there are no acute contraindications to surgical intervention. Follow up with Dr. Velázquez upon discharge. Thank you kindly for this consultation. Nurse Practitioner note has been reviewed, I agree with a documented findings and plan of care. Patient was seen and examined. Past Medical History Past Medical History: Coronary Artery Disease (CAD), Chest Pain / Angina, Hyperlipidemia, Hypertension, Myocardial Infarction (MS), Skin Disorder Additional Past Medical History / Comment(s): TIA-pt states never confirmed, psoriasis.kidney stones, past stress test Last Myocardial Infarction Date:: 2009 History of Any Multi-Drug Resistant Organisms: None Reported Past Surgical History: Coronary Bypass/CABG, Heart Catheterization, Orthopedic Surgery, Tonsillectomy Additional Past Surgical History / Comment(s): 2010 CABG 4 vessel, bilateral cataract removals with lens implants.lithoptripsy. Right hip Past Anesthesia/Blood Transfusion Reactions: No Reported Reaction Additional Past Anesthesia/Blood Transfusion Reaction / Comment(s): states "hallucinations after surgery" Past Psychological History: Anxiety Smoking Status: Never smoker Past Alcohol Use History: None Reported Past Drug Use History: None Reported - Past Family History Mother Family Medical History: No Reported History Additional Family Medical History / Comment(s): . Father Family Medical History: CVA/TIA Additional Family Medical History / Comment(s): Father had a surgical procedure with a CVA post op. He 5 yrs later at the age of 66yrs. Medications and Allergies Home Medications Medication Instructions Recorded Confirmed Type Aspirin EC [Ecotrin Low Dose] 81 mg PO DAILY 09/27/15 11/07/22 History Acetaminophen Tab [Tylenol] 325 mg PO Q4H PRN 03/26/20 11/07/22 History Metoprolol Succinate [Metoprolol 25 mg PO DAILY 11/07/22 11/07/22 History Succinate ER] amLODIPine [Norvasc] 10 mg PO DAILY 11/07/22 11/07/22 History Allergies Allergy/AdvReac Type Severity Reaction Status Date / Time morphine AdvReac Hallucinati Verified 11/07/22 13:10 ons Physical Exam Vitals: Vital Signs Temp Pulse Pulse Pulse Resp BP BP 11/08/22 07:46 97.7 F 82 124/78 11/08/22 01:19 97.8 F 74 18 151/76 11/07/22 19:43 97.8 F 78 18 120/64 11/07/22 17:13 97.7 F 78 18 144/71 11/07/22 16:00 75 18 152/76 11/07/22 12:32 72 152/76 11/07/22 11:17 72 18 152/76 Pulse Ox 11/08/22 07:46 98 11/08/22 01:19 95 11/07/22 19:43 95 11/07/22 17:13 94 L 11/07/22 16:00 96 11/07/22 12:32 96 11/07/22 11:17 96 Intake and Output 11/07/22 11/08/22 11/08/22 22:59 06:59 14:59 Output Total 0 400 Balance 0 -400 Output: Urine 0 400 Other: Voiding Method External Catheter Weight 54.431 kg Results 11/07/22 09:50 11/08/22 04:30 Cardiac Enzymes 11/07/22 Range/Units 09:50 AST 39 H (14-36) U/L Coagulation 11/07/22 Range/Units 09:50 PT 10.1 (9.0-12.0) sec CBC 11/07/22 Range/Units 09:50 WBC 12.2 H (3.8-10.6) k/uL RBC 4.23 (3.80-5.40) m/uL Hgb 13.8 (11.4-16.0) gm/dL Hct 41.1 (34.0-46.0) % Plt Count 191 (150-450) k/uL Comprehensive Metabolic Panel 11/07/22 Range/Units 09:50 Sodium 140 (137-145) mmol/L Potassium 4.1 (3.5-5.1) mmol/L Chloride 108 H (98-107) mmol/L Carbon Dioxide 23 (22-30) mmol/L BUN 20 H (7-17) mg/dL Creatinine 0.83 (0.52-1.04) mg/dL Glucose 108 H (74-99) mg/dL Calcium 9.2 (8.4-10.2) mg/dL AST 39 H (14-36) U/L ALT 31 (4-34) U/L Alkaline Phosphatase 98 (38-126) U/L Total Protein 6.5 (6.3-8.2) g/dL Albumin 3.9 (3.5-5.0) g/dL Current Medications Generic Name Dose Route Start Last Admin Trade Name Freq PRN Reason Stop Dose Admin Acetaminophen 650 mg 11/07/22 09:06 Acetaminophen Tab 325 Mg Tab PO Q6HR PRN Mild Pain or Fever > 100.5 Amlodipine Besylate 10 mg 11/08/22 09:00 11/08/22 08:01 Amlodipine 10 Mg Tab PO 10 mg DAILY MIRLANDE Administration Metoprolol Succinate 25 mg 11/07/22 21:00 11/07/22 20:45 Metoprolol Succinate (Er) 25 Mg Tab.Er.24h PO 25 mg HS MIRLANDE Administration Morphine Sulfate 4 mg 11/07/22 12:11 Morphine Sulfate 4 Mg/Ml Syringe IVP Q6HR PRN Severe Breakthrough Pain Naloxone HCl 0.2 mg 11/07/22 09:06 Naloxone 0.4 Mg/Ml 1 Ml Vial IV Q2M PRN Opioid Reversal Tramadol HCl 50 mg 11/07/22 09:06 11/07/22 15:33 Tramadol 50 Mg Tab PO 50 mg Q6H PRN Administration Moderate Pain (Scale 4 to 6) Intake and Output 11/07/22 11/08/22 11/08/22 22:59 06:59 14:59 Output Total 0 400 Balance 0 -400 Output: Urine 0 400 Other: Voiding Method External Catheter Weight 54.431 kg 11/07/22 09:50 11/07/22 09:50
--- NOTE | 2022-11-08 11:16 | P.HPOR ---
History of Present Illness H&P Date: 11/08/22 Chief Complaint: Left hip fracture Patient is a pleasant 87-year-old female seen at bedside this am. She presented to the emergency room yesterday 11/07/22 after a slip and fall in her kitchen during the night. She developed immediate left hip and leg pain along with left wrist pain. Xrays in the Ed show a left femoral neck fracture. She continues with intermittent pain in her left lower extremity radiating from the hip down the leg intermittently as expected. . She denies any numbness or tingling. She also complains of pain in the left wrist and left hand pain. She denies numbness in hand or fingers. Splint with [place] wrap applied by EMS intact upon initial evaluation, removed for complete evaluation of left upper extremity. She denies any other extremity injury. She denies any loss of consciousness prior to or after the fall. She denies any headache, dizziness, nausea or vomiting. She has past medical history significant for CAD, hype rtension, hyperlipidemia, psoriasis, renal stones and TIA. Review of Systems All systems: negative Constitutional: Denies chills, Denies fever Eyes: denies blurred vision, denies pain Ears, nose, mouth and throat: Denies headache, Denies sore throat Cardiovascular: Denies chest pain, Denies shortness of breath Respiratory: Denies cough Gastrointestinal: Denies abdominal pain, Denies diarrhea, Denies nausea, Denies vomiting Genitourinary: Denies dysuria, Denies hematuria Musculoskeletal: Denies myalgias Integumentary: Denies pruritus, Denies rash Neurological: Denies numbness, Denies weakness Psychiatric: Denies anxiety, Denies depression Endocrine: Denies fatigue, Denies weight change Past Medical History Past Medical History: Coronary Artery Disease (CAD), Chest Pain / Angina, Hyperlipidemia, Hypertension, Myocardial Infarction (DC), Skin Disorder Additional Past Medical History / Comment(s): TIA-pt states never confirmed, psoriasis.kidney stones, past stress test Last Myocardial Infarction Date:: 2009 History of Any Multi-Drug Resistant Organisms: None Reported Past Surgical History: Coronary Bypass/CABG, Heart Catheterization, Orthopedic Surgery, Tonsillectomy Additional Past Surgical History / Comment(s): 2009 CABG 4 vessel, bilateral cataract removals with lens implants.lithoptripsy. Right hip Past Anesthesia/Blood Transfusion Reactions: No Reported Reaction Additional Past Anesthesia/Blood Transfusion Reaction / Comment(s): states "hallucinations after surgery" Past Psychological History: Anxiety Smoking Status: Never smoker Past Alcohol Use History: None Reported Past Drug Use History: None Reported - Past Family History Mother Family Medical History: No Reported History Additional Family Medical History / Comment(s): . Father Family Medical History: CVA/TIA Additional Family Medical History / Comment(s): Father had a surgical procedure with a CVA post op. He 5 yrs later at the age of 66yrs. Medications and Allergies Home Medications Medication Instructions Recorded Confirmed Type Aspirin EC [Ecotrin Low Dose] 81 mg PO DAILY 09/27/15 11/07/22 History Acetaminophen Tab [Tylenol] 325 mg PO Q4H PRN 03/26/20 11/07/22 History Metoprolol Succinate [Metoprolol 25 mg PO DAILY 11/07/22 11/07/22 History Succinate ER] amLODIPine [Norvasc] 10 mg PO DAILY 11/07/22 11/07/22 History Allergies Allergy/AdvReac Type Severity Reaction Status Date / Time morphine AdvReac Hallucinati Verified 11/07/22 13:10 ons Physical Examination Inspection of the lower extremities shows a shortened externally rotated left lower extremity. There are no wounds, erythema or ecchymoses. The knee is nontender without effusion. She has painless range of motion of the knee, ankle foot and toes. Range of motion of the left hip is not tested due to fracture. Neurovascular status is intact throughout the lower extremity with motor and se nsation fully intact. Calf is soft and nontender. 2+ dorsalis pedis pulse and less than 2 second cap refill is present. Left upper extremity shows a volar splint in place. There is echymosis at the dorsum of the hand. No bleeding or wounds evident. NVI with motor and sensation. Less than 2 sec cap refill to all digits. Results - Labs Labs: Abnormal Lab Results - Last 24 Hours (Table) 11/08/22 11/08/22 Range/Units 04:30 04:30 MCV 100.0 H (80.0-97.0) fL MCH 33.0 H (27.0-32.0) pg Carbon Dioxide 19.8 L (20.0-27.5) mmol/L Est GFR (CKD-EPI)NonAf 57.5 L (60.0-200.0) Glucose 115 H (70-110) mg/dL Total Protein 5.9 L (6.2-8.2) g/dL Albumin 3.6 L (3.8-4.9) g/dL Albumin/Globulin Ratio 1.57 L (1.60-3.17) g/dL H & H 11/07/22 11/08/22 Range/Units 09:50 04:30 Hgb 13.8 14.1 (11.4-16.0) gm/dL Hct 41.1 42.7 (34.0-46.0) % Coagulation 11/07/22 Range/Units 09:50 INR 0.9 (<1.2) Result Diagrams: 11/08/22 04:30 11/08/22 04:30 - Diagnostic results Wrist/Hand x-ray: report reviewed, image reviewed Hip x-ray: report reviewed, image reviewed Assessment and Plan (1) Left displaced femoral neck fracture Narrative/Plan: Patient has been reviewed with Dr. David. Plan is to proceed with surgical intervention including a hemiarthroplasty for the left hip fracture today 11/08/22. The procedure, risks and benefits have been reviewed with the patient. She desires to proceed. She has been cleared by IM and cardiology. Procedure and consent ordered. She has been NPO. She will likely need ECF placement post op. Will continue splint, elevation ice and transition to short arm cast for the left distal radius fracture. Current Visit: Yes Status: Acute Priority: Medium Code(s): S72.002A - FRACTURE OF UNSP PART OF NECK OF LEFT FEMUR, INIT SNOMED Code(s): 7836954 (2) Fracture of left distal radius Current Visit: Yes Status: Acute Priority: Medium Code(s): S52.502A - UNSP FRACTURE OF THE LOWER END OF LEFT RADIUS, INIT SNOMED Code(s): 138510800 Time with Patient: Less than 30
[2022-11-08] MEDS ORDERED: LACTATED RINGERS 1,000 ML IV ONE (14:14)
[2022-11-08] MEDS ORDERED: ONDANSETRON 4 MG/2 ML VIAL ONE (14:23)
[2022-11-08] MEDS ORDERED: TRANEXAMIC ACID 1,000 MG in SODIUM CHLORIDE 0.9% 100 ML IVPB PRN (14:28)
[2022-11-08] MEDS ORDERED: ONDANSETRON 4 MG/2 ML VIAL IVP ONE (14:33)
[2022-11-08] MEDS ORDERED: DEXAMETHASONE SOD PHOSPHATE 4 MG/ML 1 ML VIAL IVP ONE (14:33)
[2022-11-08] MEDS ORDERED: PROPOFOL 10 MG/ML 20 ML VIAL IV ONE (14:34)
[2022-11-08] MEDS ORDERED: GLYCOPYRROLATE 0.2 MG/ML 2 ML VIAL ONE (14:34)
[2022-11-08] MEDS ORDERED: HYDROmorphone (PF) 1 MG/ML ONE (14:34)
[2022-11-08] MEDS ORDERED: fentaNYL (PF) 50 MCG/ML 2 ML AMP ONE (14:34)
[2022-11-08] MEDS ORDERED: KETAMINE 10 MG/ML 20 ML VIAL ONE (14:34)
[2022-11-08] MEDS ORDERED: ONDANSETRON 4 MG/2 ML VIAL IVP PRN (14:39)
[2022-11-08] MEDS ORDERED: HYDROmorphone 0.5 MG/0.5 ML SYRINGE IVP PRN ×2 (14:39)
[2022-11-08] MEDS ORDERED: MAGNESIUM HYDROXIDE 2,400 MG/10 ML CUP PO PRN (14:39)
[2022-11-08] MEDS ORDERED: bisacodyL 10 MG SUPP RECTAL PRN (14:39)
[2022-11-08] MEDS ORDERED: HYDROcodone/APAP 5-325MG 1 EACH TAB PO PRN (14:39)
[2022-11-08] MEDS ORDERED: NA PHOS,M-B/NA PHOS,DI-BA 133 ML ENEMA RECTAL PRN (14:39)
[2022-11-08] MEDS ORDERED: SODIUM CHLORIDE 0.9% 50 ML with ceFAZolin 2,000 MG IV ONE ×2 (14:42)
[2022-11-08] MEDS ORDERED: ceFAZolin 3,000 MG in SODIUM CHLORIDE 0.9% IRRIGATIO 3,000 ML IRRIGATION ONE (15:18)
[2022-11-08] MEDS: LACTATED RINGERS 1,000 ML IV SCH (17:16)
--- NOTE | 2022-11-08 18:21 | XR ---
EXAMINATION TYPE: XR Hip Limited LT DATE OF EXAM: 11/08/2022 CLINICAL HISTORY: Left hip fracture. TECHNIQUE: Single AP portable view of the left hip is obtained immediately postoperatively. COMPARISON: Pelvic and left hip x-ray from one day earlier. FINDINGS: Metallic hardware from total left hip arthroplasty is seen and appears satisfactory in alig nment and position. There is evidence of recent surgery with subcutaneous gas noted laterally. IMPRESSION: Metallic hardware from left hip arthroplasty is satisfactory in position.
[2022-11-08] MEDS: SENNOSIDES-DOCUSATE SODIUM 1 EACH TAB PO SCH (20:53)
[2022-11-08] MEDS: METOPROLOL SUCCINATE (ER) 25 MG TAB.ER.24H PO SCH (20:53)
[2022-11-08] MEDS: ASPIRIN 81 MG PO SCH (20:53)
[2022-11-08] MEDS ORDERED: ALPRAZolam 0.5 MG TAB PO STA (22:40)
--- NOTE | 2022-11-08 22:41 | OP ---
OPERATIVE REPORT DATE OF SERVICE : 11/08/2022 ELECTRIC DOLLY OPERATOR: Murtaza Lyons PA-C. PREOPERATIVE DIAGNOSIS: Left displaced femoral neck fracture. POSTOPERATIVE DIAGNOSIS: Left displaced femoral neck fracture. PROCEDURE PERFORMED: Left hip hemiarthroplasty. ANESTHESIA: Spinal with sedation. ESTIMATED BLOOD LOSS: 100 mL. TOURNIQUET: None. DRAINS: None. COMPLICATIONS: None apparent. DISPOSITION: Postanesthesia care unit. INDICATIONS FOR PROCEDURE: Jordyn is a very pleasant 87-year-old female, who fell yesterday onto her left hip. She was brought via ambulance to [facility]. Workup including x-rays revealed a left displaced femoral neck fracture. She was admitted to pa. She is an independent ambulator. Decision was made to proceed with hemiarthroplasty of the left hip. She was cleared by both Medicine and Cardiology services. The risks of procedure were discussed with her and her family in detail. These risks include, but are not limited to risk of infection, nerve damage, bleeding, pain, and a small risk of deep vein thrombosis which could lead to fatal pulmonary embolism. Further risks include instability, periprosthetic fracture, and deep infection. All of these risks were discussed with Jordyn and her family. All of their questions were answered to their satisfaction. Appropriate informed consent was obtained. DESCRIPTION OF PROCEDURE: The patient was identified in the preoperative holding area. The surgical site was marked by both the patient and myself. She was given 2 g of Ancef IV for prophylactic purposes. She was then transported to the operative suite. She was placed supine on the operating room table. A spinal anesthetic was administered and dosed per the Anesthesia Department without apparent complication. She was then placed on the operating room table. She was placed in the right lateral decubitus position. Great care was taken to ensure that her legs were appropriately padded and she had a well- padded axillary roll as well. The patient's left lower extremity was then prepped and draped in usual sterile fashion. A standard surgical pause was undertaken to ensure that we were operating the correct site and that appropriate preoperative antibiotics were given. All staff in room were in agreement, and we proceeded. The outlines of the greater trochanter were then marked with a surgical pen. Approximately 10 to 12 cm incision extending over the tip of the greater trochanter and extending both proximally and distally in line with the shaft of the femur was then made. Incision was then made with a 10-blade scalpel. Dissection was carried down sharply to the tensor fascia. Hemostasis was achieved with electrocautery. Tensor fascia was then incised in line with the incision. The Charnley retractor was then placed deep. This gave me excellent exposure to the gluteus medius. The raphe between the anterior 1/3rd and posterior 2/3rds of the gluteus medius was identified. I then did a modified lateral Hardinge-type approach. The anterior 3rd of the gluteus medius, gluteus minimus, and anterior capsule was then dissected off the anterior aspect of the greater trochanter and peeled anteriorly. I then brought the cutting guide in. I then utilized a reciprocating saw to freshen the femoral neck cut. I then utilized a corkscrew to remove the little river femoral head. The little river femoral head was then measured. This measured a size 43. A 43 trial was then placed on to the lollypop placed into the hip. It had excellent suction fit. This was then removed. The hip was then externally rotated and flexed anteriorly. This gave me excellent access to the proximal femur. A box toe cutter was then utilized to gain access to the proximal femoral canal. Then, I began with a starting reamer. I then reamed the proximal femur starting with a size 7 reamer and incrementally increasing up to a size 9 reamer. Good chatter was achieved at a size 9 reamer. I then proceeded to broach the proximal femur. I started with a size 7 broach. The broaching was done approximately 15 degrees of anteversion. I then incrementally increased up to a size 9 broach. The broach was then left in place. I started with a -3 neck and a 43 monopolar head trial. The hip was then reduced. It was fairly difficult reduction. The hip was very stable throughout a full range of motion. The leg lengths were approximately equal. The leg was then carefully redislocated. The trial components were then removed. The wound was thoroughly irrigated with sterile saline solution with antibiotic added via pulse lavage. I then had the electronics parts sales representative open a Ann size 9 collared interlock stem, -3 neck and a 43 monopolar head. The collared stem was then impacted into the proximal femur in approximately 15 degrees of anteversion. It had excellent fit. The -3 neck was then placed into the monopolar head on the back table. The Degroot taper was dried completely and then the -3 neck, 43 monopolar head was then impacted onto the neck of the real stem. The hip was then again very carefully reduced. Again, it was a mildly difficult reduction. It was very stable throughout a full range of motion. There was very minimal Shuck. The leg lengths were approximately equal. At this point, we proceeded with closure. The wound was again thoroughly irrigated with sterile saline solution, antibiotic added via pulse lavage. The anterior capsule, gluteus minimus and gluteus medius were repaired back to the anterior greater trochanter utilizing transosseous #5 Ethibond interrupted sutures. The raphe between the anterior 1/3rd and posterior 2/3rds of the gluteus medius was repaired with 0 Vicryl interrupted suture. The wound was again thoroughly irrigated. The tensor fascia was then closed with a running #3 Quill suture. The subcutaneous tissue was closed with 2-0 Vicryl interrupted suture. The skin was closed with a running 3-0 Quill suture. Dermabond was then applied to the incision. A sterile compressive dressing was then applied. A hip abduction wedge was then placed in between her legs as well. All sponge and needle counts were deemed correct prior to closure. The patient tolerated the procedure without apparent complication. She was transferred to recovery room in stable condition. MMODL / IJN: [id number] /
[2022-11-09] MEDS: LACTATED RINGERS 1,000 ML IV SCH ×3 (04:12→21:22)
[2022-11-09] MEDS: ASPIRIN 81 MG PO SCH ×2 (08:23→21:14)
[2022-11-09] MEDS: amLODIPine 10 MG TAB PO SCH (08:23)
[2022-11-09] MEDS ORDERED: METOPROLOL SUCCINATE (ER) 25 MG TAB.ER.24H PO SCH (08:45)
--- NOTE | 2022-11-09 09:22 | P.PN ---
Subjective Progress Note Date: 11/09/22 This is an 87-year-old female patient of Dr. Maricarmen Velázquez with past medical history significant for coronary artery disease status post four-vessel bypass grafting in 2009 with a JACK to LAD, SVG to OM1, SVG to OM 2 and SVG to RCA. She also has hypertension, dyslipidemia and has had a TIA in the past. we have been asked to see her in consultation for preoperative evaluation. She presented to the hospital yesterday after suffering a fall in her kitchen. This was a slip and fall. No head trauma. Patient complaining of pain in the left lower extremity and found to have a left femoral neck fracture and is scheduled for left hip hemiarthroplasty today with Dr. David. Patient denies having any chest pain, no shortness of breath, no palpitations. She states that she is fairly active with a walker. EKG sinus rhythm with left ventricular hypertrophy Chest x-ray negative WBC 12.2, hemoglobin 13.8, platelet count 192. Sodium 138, potassium 4, chloride 108, BUN 13, creatinine 0.9. Blood sugar 115. Calcium 8.7, magnesium 1.8, liver function tests are normal. Home cardiac medications: Amlodipine 10 mg daily, aspirin 81 mg daily, Toprol-XL 25 mg daily Echocardiogram 06/2018: EF 55-60%, trace to mild mild mitral regurgitation, mild tricuspid regurgitation, mild pulmonary hypertension, RVSP 48.71 mmHg. Lexiscan stress test 2016: No evidence of reversible ischemia. 11/09 Yesterday, patient underwent a left hip hemiarthroplasty with Dr. David, blood loss 100 ML's, no events overnight. Patient is seen today in follow-up. Patient is able to answer questions appropriately but is confused. Patient denies having any pain. She is mildly tachycardic on exam and Toprol-XL changed to Lopressor 25 mg twice daily to hold if less than 60 bpm. Blood pressure 123/73, pulse ox 96% on room air. GENERAL: This is a 87-year-old female in no apparent distress at the time of my examination. HEENT: Head is atraumatic, normocephalic. Pupils are equal, round. Sclerae anicteric. Conjunctivae are clear. Mucous membranes of the mouth are somewhat dry. Neck is supple. There is no jugular venous distention. No carotid bruit is heard. LUNGS: Clear to auscultation no wheezes, rales or rhonchi. No chest wall tenderness is noted on palpation or with deep breathing. HEART: Regular rate and rhythm without murmurs, rubs or gallops. S1 and S2 heard. ABDOMEN: Soft, nontender. Bowel sounds are heard. No organomegaly noted. EXTREMITIES: No evidence of peripheral edema and no calf tenderness noted. VASCULAR: Radial and dorsalis pedis pulses palpated, no evidence of clubbing. NEUROLOGIC: Patient is awake, alert with mild confusion. ASSESSMENT Mechanical fall Left femoral neck fracture status post left hip hemiarthroplasty 11/08 Left radial fracture History of coronary artery disease status post bypass grafting Hypertension Pulmonary hypertension, RVSP 48 mmHg Dyslipidemia, statin has been discontinued in the past for elevated liver enzymes. PLAN Resume patient's home cardiac medications Change Toprol-XL to metoprolol tartrate 25 mg twice daily and monitor heart rate, hold for heart rate less than 60. Follow up with Dr. Velázquez upon discharge. Thank you kindly for this consultation. Nurse Practitioner note has been reviewed, I agree with a documented findings and plan of care. Patient was seen and examined. Objective - Vital Signs Vital signs: Vital Signs Temp 98.5 F 11/09/22 01:25 Pulse 84 11/09/22 01:25 Resp 17 11/09/22 01:25 BP 142/61 11/09/22 01:25 Pulse Ox 95 11/09/22 01:25 FiO2 Intake & Output 11/08/22 11/09/22 11/09/22 18:59 06:59 18:59 Intake Total 851 Output Total 850 350 Balance 1 -350 Intake: IV 851 Output: Urine 750 350 Estimated Blood Loss 100 Other: Voiding Method External Catheter Indwelling Catheter - Labs CBC & Chem 7: 11/08/22 04:30 11/08/22 04:30 Labs: Abnormal Lab Results - Last 24 Hours (Table) 11/08/22 11/08/22 Range/Units 04:30 04:30 MCV 100.0 H (80.0-97.0) fL MCH 33.0 H (27.0-32.0) pg Carbon Dioxide 19.8 L (20.0-27.5) mmol/L Est GFR (CKD-EPI)NonAf 57.5 L (60.0-200.0) Glucose 115 H (70-110) mg/dL Total Protein 5.9 L (6.2-8.2) g/dL Albumin 3.6 L (3.8-4.9) g/dL Albumin/Globulin Ratio 1.57 L (1.60-3.17) g/dL
[2022-11-09] MEDS: METOPROLOL TARTRATE 25 MG TAB PO SCH ×2 (10:32→21:13)
[2022-11-09] MEDS: HYDROcodone/APAP 10-325MG 1 EACH TAB PO PRN ×2 (10:35→20:04)
[2022-11-09] MEDS: MULTIVITAMINS, THERA 1 EACH TAB PO SCH (11:43)
--- NOTE | 2022-11-09 13:26 | P.PN ---
Subjective Progress Note Date: 11/09/22 Hospital course: Patient is a very pleasant 87-year-old female with a past medical history of CAD status post CABG 4 in 2009, hypertension, hyperlipidemia, and TIA. She presented to the emergency department status post slip and fall. Patient reports she slipped and fell in her kitchen floor landing onto her left side. She denies hitting her head or having any loss of consciousness. She underwent full evaluation in the emergency department. Labs completed and reviewed. CBC showing leukocytosis with WBC count of 12.2. BMP revealing mild prerenal azotemia with BUN of 20. Glucose 108. Liver profile revealing slightly elevated AST of 39. Coagulation profile normal findings. X-ray left hip revealed a subcapital fracture of left hip. X-ray left wrist showing a fracture of distal metaphyseal radius with mild dorsal angulation and an old avulsion ulnar styloid fracture. Chest x-ray was completed showing no signs of acute cardiopulmonary process. Patient currently reports controlled pain to left wrist and left hip. She denies having any headache, lightheadedness, dizziness, chest pain, palpitations, shortness of breath, or any other complaints at this time. Patient was admitted under orthopedic surgery team and we have been consulted for medical management throughout patient's hospitalization. Patient had left hip arthroplasty on 11/08/2022. Patient was seen this morning. She is a poor historian likely due to old age. She knew that she did have a fall. However she did not know that she is already had her surgery done. She denies any shortness of breath or chest pain. 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 Since patient was mildly tachycardic cardiology increased her Lopressor to 25 mg by mouth twice a day. Patient is medically stable for discharge to alf facility DVT prophylaxis: Subcu heparin Anticipated discharge: Tomorrow once cleared by primary team Anticipated discharge place: alf facility Objective - Vital Signs Vital signs: Vital Signs Temp 98.6 F 11/09/22 07:00 Pulse 75 11/09/22 07:00 Resp 16 11/09/22 07:00 BP 123/73 11/09/22 07:00 Pulse Ox 96 11/09/22 07:00 FiO2 Intake & Output 11/08/22 11/09/22 11/09/22 18:59 06:59 18:59 Intake Total 851 850 Output Total 850 350 Balance 1 -350 850 Intake: IV 851 Intake, IV Titration 850 Amount Lactated Ringers 1,000 ml 800 @ 100 mls/hr IV .Q10H MIRLANDE Rx#:[id number] ceFAZolin 2 gm In Sodium 50 Chloride 0.9% 50 ml @ 100 mls/hr IVPB Q8HR MIRLANDE Rx# :[id number] Output: Urine 750 350 Estimated Blood Loss 100 Other: Voiding Method External Catheter Indwelling Catheter Indwelling Catheter - Labs CBC & Chem 7: 11/08/22 04:30 11/08/22 04:30
--- NOTE | 2022-11-09 13:52 | P.PN ---
Subjective Progress Note Date: 11/09/22 Principal diagnosis: Right Hip fracture Patient is seen at bedside this morning. SHe is postop day #1 from left hip isael arthroplasty. She has pain at the surgical site as expected but denies any new complaints. She denies numbness, tingling or calf pain. Review of systems is negative for fever, chills, chest pain, shortness of breath or othe Objective - Vital Signs Vital signs: Vital Signs Temp 98.6 F 11/09/22 07:00 Pulse 75 11/09/22 07:00 Resp 16 11/09/22 07:00 BP 123/73 11/09/22 07:00 Pulse Ox 96 11/09/22 07:00 FiO2 Intake & Output 11/08/22 11/09/22 11/09/22 18:59 06:59 18:59 Intake Total 851 850 Output Total 850 350 Balance 1 -350 850 Intake: IV 851 Intake, IV Titration 850 Amount Lactated Ringers 1,000 ml 800 @ 100 mls/hr IV .Q10H MIRLANDE Rx#:[id number] ceFAZolin 2 gm In Sodium 50 Chloride 0.9% 50 ml @ 100 mls/hr IVPB Q8HR MIRLANDE Rx# :[id number] Output: Urine 750 350 Estimated Blood Loss 100 Other: Voiding Method External Catheter Indwelling Catheter Indwelling Catheter - Exam Inspection reveals a benign surgical wound. There is no active bleeding or drainage. Neurovascular status is intact throughout the lower extremity with motor and sensation fully intact. Calf is soft and nontender. 2+ dorsalis pedis pulse and less than 2 second cap refill is present. - Constitutional General appearance: Present: no acute distress - Labs CBC & Chem 7: 11/08/22 04:30 11/08/22 04:30 Assessment and Plan (1) Left displaced femoral neck fracture Narrative/Plan: She will continue with routine postop orthopedic protocol including pain management, wound care, PT, DVT prophylaxis and medical management. Expect that she will transfer to [facility] in next 1-2 days. Will continue splint, elevation ice and transition to short arm cast for the left distal radius fracture. Current Visit: Yes Status: Acute Priority: Medium Code(s): S72.002A - FRACTURE OF UNSP PART OF NECK OF LEFT FEMUR, INIT SNOMED Code(s): 8771078 (2) Fracture of left distal radius Current Visit: Yes Status: Acute Priority: Medium Code(s): S52.502A - UNSP FRACTURE OF THE LOWER END OF LEFT RADIUS, INIT SNOMED Code(s): 968279480 Time with Patient: Less than 30
[2022-11-09 14:17] LABS: Basophils # (A) 0.02 X 10*3/uL (0.00-0.10); Basophils % (A) 0.2 %; Eosinophils # (A) 0 X 10*3/uL (0.04-0.35); Eosinophils % (A) 0 %; HCT 41.1 % (37.2-46.3); HGB 13.1 g/dL (12.0-15.0); Immature Grans, Automated 0.6 %; Lymphocytes # (A) 0.39 X 10*3/uL (0.90-5.00); Lymphocytes % (A) 3.7 %; MCH 32.6 pg (27.0-32.0); MCHC 31.9 g/dL (32.0-37.0); MCV 102.2 fL (80.0-97.0); Mean Platelet Volume 11.5 fL (9.5-12.2); Monocytes # (A) 0.55 X 10*3/uL (0.20-1.00); Monocytes % (A) 5.2 %; NRBC Per 100 WBC 0 /100 WBCS (0.0-0.0); Neutrophils # (A) 9.57 X 10*3/uL (1.80-7.70); Neutrophils % (A) 90.3 %; Platelet Count 195 X 10*3/uL (140-440); RBC 4.02 X 10*6/uL (4.10-5.20); RDW 12.6 % (11.5-14.5); WBC 10.59 X 10*3/uL (4.50-10.00)
[2022-11-09] MEDS: HYDROmorphone 0.5 MG/0.5 ML SYRINGE IVP PRN ×2 (21:06→23:56)
[2022-11-09] MEDS: SENNOSIDES-DOCUSATE SODIUM 1 EACH TAB PO SCH (21:14)
[2022-11-10] MEDS: HYDROcodone/APAP 10-325MG 1 EACH TAB PO PRN (02:10)
[2022-11-10] MEDS: METOPROLOL TARTRATE 25 MG TAB PO SCH (08:56)
[2022-11-10] MEDS: ASPIRIN 81 MG PO SCH (08:56)
[2022-11-10] MEDS: amLODIPine 10 MG TAB PO SCH (08:56)
[2022-11-10] MEDS: LACTATED RINGERS 1,000 ML IV SCH (08:57)
--- NOTE | 2022-11-10 11:41 | P.PN ---
Subjective Progress Note Date: 11/10/22 Hospital course: Patient is a very pleasant 87-year-old female with a past medical history of CAD status post CABG 4 in 2009, hypertension, hyperlipidemia, and TIA. She presented to the emergency department status post slip and fall. Patient reports she slipped and fell in her kitchen floor landing onto her left side. She denies hitting her head or having any loss of consciousness. She underwent full evaluation in the emergency department. Labs completed and reviewed. CBC showing leukocytosis with WBC count of 12.2. BMP revealing mild prerenal azotemia with BUN of 20. Glucose 108. Liver profile revealing slightly elevated AST of 39. Coagulation profile normal findings. X-ray left hip revealed a subcapital fracture of left hip. X-ray left wrist showing a fracture of distal metaphyseal radius with mild dorsal angulation and an old avulsion ulnar styloid fracture. Chest x-ray was completed showing no signs of acute cardiopulmonary process. Patient currently reports controlled pain to left wrist and left hip. She denies having any headache, lightheadedness, dizziness, chest pain, palpitations, shortness of breath, or any other complaints at this time. Patient was admitted under orthopedic surgery team and we have been consulted for medical management throughout patient's hospitalization. Patient had left hip arthroplasty on 11/08/2022. Patient was somnolent this morning. She had no acute complaints. No acute issues overnight. 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 Since patient was mildly tachycardic cardiology increased her Lopressor to 25 mg by mouth twice a day. Patient is medically stable for discharge to assisted facility DVT prophylaxis: Subcu heparin Anticipated discharge: Today Anticipated discharge place: senior care facility Objective - Vital Signs Vital signs: Vital Signs Temp 98.7 F 11/10/22 08:00 Pulse 95 11/10/22 08:00 Resp 16 05/17/23 08:57 BP 143/65 11/10/22 08:00 Pulse Ox 91 L 11/10/22 08:00 FiO2 Intake & Output 11/09/22 11/10/22 11/10/22 18:59 06:59 18:59 Intake Total 850 Output Total 900 1200 Balance -50 -1200 Intake: Intake, IV Titration 850 Amount Lactated Ringers 1,000 ml 800 @ 100 mls/hr IV .Q10H MIRLANDE Rx#:[id number] ceFAZolin 2 gm In Sodium 50 Chloride 0.9% 50 ml @ 100 mls/hr IVPB Q8HR MIRLANDE Rx# :[id number] Output: Urine 900 1200 Other: Voiding Method Indwelling Catheter Indwelling Catheter Indwelling Catheter - Labs CBC & Chem 7: 11/09/22 06:29 11/08/22 04:30 Labs: Abnormal Lab Results - Last 24 Hours (Table) 11/09/22 Range/Units 06:29 WBC 10.59 H (4.50-10.00) X 10*3/uL RBC 4.02 L (4.10-5.20) X 10*6/uL MCV 102.2 H (80.0-97.0) fL MCH 32.6 H (27.0-32.0) pg MCHC 31.9 L (32.0-37.0) g/dL Immature Gran # 0.06 H (0.00-0.04) X 10*3/uL Neutrophils # 9.57 H (1.80-7.70) X 10*3/uL Lymphocytes # 0.39 L (0.90-5.00) X 10*3/uL Eosinophils # 0 L (0.04-0.35) X 10*3/uL
--- NOTE | 2022-11-10 13:29 | P.PN ---
Subjective Progress Note Date: 11/10/22 This is an 87-year-old female patient of Dr. Maricarmen Velázquez with past medical history significant for coronary artery disease status post four-vessel bypass grafting in 2009 with a JACK to LAD, SVG to OM1, SVG to OM 2 and SVG to RCA. She also has hypertension, dyslipidemia and has had a TIA in the past. we have been asked to see her in consultation for preoperative evaluation. She presented to the hospital yesterday after suffering a fall in her kitchen. This was a slip and fall. No head trauma. Patient complaining of pain in the left lower extremity and found to have a left femoral neck fracture and is scheduled for left hip hemiarthroplasty today with Dr. David. Patient denies having any chest pain, no shortness of breath, no palpitations. She states that she is fairly active with a walker. EKG sinus rhythm with left ventricular hypertrophy Chest x-ray negative WBC 12.2, hemoglobin 13.8, platelet count 192. Sodium 138, potassium 4, chloride 108, BUN 13, creatinine 0.9. Blood sugar 115. Calcium 8.7, magnesium 1.8, liver function tests are normal. Home cardiac medications: Amlodipine 10 mg daily, aspirin 81 mg daily, Toprol-XL 25 mg daily Echocardiogram 06/2018: EF 55-60%, trace to mild mild mitral regurgitation, mild tricuspid regurgitation, mild pulmonary hypertension, RVSP 48.71 mmHg. Lexiscan stress test 2016: No evidence of reversible ischemia. 11/09 Yesterday, patient underwent a left hip hemiarthroplasty with Dr. David, blood loss 100 ML's, no events overnight. Patient is seen today in follow-up. Patient is able to answer questions appropriately but is confused. Patient denies having any pain. She is mildly tachycardic on exam and Toprol-XL changed to Lopressor 25 mg twice daily to hold if less than 60 bpm. Blood pressure 123/73, pulse ox 96% on room air. 11/10 Patients heart rate is 70 - 90s and BP 143/65. Metoprolol currently 25 mg bid. No other cardiac concerns. GENERAL: This is a 87-year-old female in no apparent distress at the time of my examination. HEENT: Head is atraumatic, normocephalic. Pupils are equal, round. Sclerae anicteric. Conjunctivae are clear. Mucous membranes of the mouth are somewhat dry. Neck is supple. There is no jugular venous distention. No carotid bruit is heard. LUNGS: Clear to auscultation no wheezes, rales or rhonchi. No chest wall tenderness is noted on palpation or with deep breathing. HEART: Regular rate and rhythm without murmurs, rubs or gallops. S1 and S2 heard. ABDOMEN: Soft, nontender. Bowel sounds are heard. No organomegaly noted. EXTREMITIES: No evidence of peripheral edema and no calf tenderness noted. VASCULAR: Radial and dorsalis pedis pulses palpated, no evidence of clubbing. NEUROLOGIC: Patient is awake, alert with mild confusion. ASSESSMENT Mechanical fall Left femoral neck fracture status post left hip hemiarthroplasty 11/08 Left radial fracture History of coronary artery disease status post bypass grafting Hypertension Pulmonary hypertension, RVSP 48 mmHg Dyslipidemia, statin has been discontinued in the past for elevated liver enzymes. PLAN Resume patient's home cardiac medications Continue metoprolol tartrate 25 mg and increase frequently to three times daily, hold for heart rate less than 60. Patient is cleared for discharge by cardiology. Follow up with Dr. Velázquez upon discharge. We will follow on an as needed basis. Please reconsult for any new concerns. Nurse Practitioner note has been reviewed, I agree with a documented findings and plan of care. Patient was seen and examined. Objective - Vital Signs Vital signs: Vital Signs Temp 98.7 F 11/10/22 08:00 Pulse 95 11/10/22 08:00 Resp 16 11/10/22 08:00 BP 143/65 11/10/22 08:00 Pulse Ox 91 L 11/10/22 08:00 FiO2 Intake & Output 11/09/22 11/10/22 11/10/22 18:59 06:59 18:59 Intake Total 850 Output Total 900 1200 Balance -50 -1200 Intake: Intake, IV Titration 850 Amount Lactated Ringers 1,000 ml 800 @ 100 mls/hr IV .Q10H MIRLANDE Rx#:[id number] ceFAZolin 2 gm In Sodium 50 Chloride 0.9% 50 ml @ 100 mls/hr IVPB Q8HR MIRLANDE Rx# :[id number] Output: Urine 900 1200 Other: Voiding Method Indwelling Catheter Indwelling Catheter - Labs CBC & Chem 7: 11/09/22 06:29 11/08/22 04:30 Labs: Abnormal Lab Results - Last 24 Hours (Table) 11/09/22 Range/Units 06:29 WBC 10.59 H (4.50-10.00) X 10*3/uL RBC 4.02 L (4.10-5.20) X 10*6/uL MCV 102.2 H (80.0-97.0) fL MCH 32.6 H (27.0-32.0) pg MCHC 31.9 L (32.0-37.0) g/dL Immature Gran # 0.06 H (0.00-0.04) X 10*3/uL Neutrophils # 9.57 H (1.80-7.70) X 10*3/uL Lymphocytes # 0.39 L (0.90-5.00) X 10*3/uL Eosinophils # 0 L (0.04-0.35) X 10*3/uL
[2022-11-10] MEDS: MULTIVITAMINS, THERA 1 EACH TAB PO SCH (13:30)
--- NOTE | 2022-11-10 14:12 | P.DS ---
Providers Date of admission: 11/07/22 08:47 Expected date of discharge: 11/10/22 Attending physician: Drake David Consults: 11/07/22 09:06 Consult Physician Stat Consulting Provider: Kaylynn Duarte Consult Reason/Comments: medical management Do you want consulting provider notified?: Yes 11/07/22 12:40 Consult Physician Urgent Consulting Provider: Vu Joaquin Consult Reason/Comments: cardiac clearance Do you want consulting provider notified?: Yes Primary care physician: Stated None - Discharge Diagnosis(es) (1) Left displaced femoral neck fracture Patient was admitted to the OR on 11/08/22 to undergo a left hip hemiarthroplasty for left hip fracture. She had suffered a fall resulting in a left femoral neck fracture the day prior. She desired to proceed with elective surgery after given informed consent. She underwent the above procedure which she tolerated well without complication. Postoperative hospital course has remained without complication. On day of discharge she is afebrile, vital signs stable, labs within acceptable ranges, tolerating by mouth meds and diet, voiding without difficulty, positive flatus, denies abdominal pain or calf pain, pain is controlled on oral pain medication and has no new complaints. Wound is benign, neurovascular status is intact, calf is soft and nontender, abdomen soft and nontender. Review of systems is negative for numbness, tingling, fever, chills, chest pain, shortness of breath, nausea, vomiting, dizziness, headaches, slurred speech or other. Current Visit: Yes Status: Acute Priority: Medium (2) Fracture of left distal radius Current Visit: Yes Status: Acute Priority: Medium Procedures: Left hip hemiarthroplasty Patient Condition at Discharge: Stable Plan - Discharge Summary Discharge Rx Participant: Yes New Discharge Prescriptions: No Action Aspirin EC [Ecotrin Low Dose] 81 mg PO DAILY Acetaminophen Tab [Tylenol] 325 mg PO Q4H PRN PRN Reason: Pain amLODIPine [Norvasc] 10 mg PO DAILY Metoprolol Succinate [Metoprolol Succinate ER] 25 mg PO DAILY Discharge Medication List Aspirin EC [Ecotrin Low Dose] 81 mg PO DAILY 09/27/15 [History] Acetaminophen Tab [Tylenol] 325 mg PO Q4H PRN 03/26/20 [History] Metoprolol Succinate [Metoprolol Succinate ER] 25 mg PO DAILY 11/07/22 [History] amLODIPine [Norvasc] 10 mg PO DAILY 11/07/22 [History] Follow up Appointment(s)/Referral(s): None,Stated [Primary Care Provider] - 1-2 days Drake David MD [STAFF PHYSICIAN] - 10 Days Activity/Diet/Wound Care/Special Instructions: weight bear as tolerated with walker at all times keep wound clean and dry' may shower in 3 days take meds as directed f/u in office Discharge Disposition: TRANSFER TO SNF/ECF
[2022-11-10 14:23] VITALS: BP 134/61; PULSE 82; RESP 17; TEMP 99
[2022-11-10] MEDS ORDERED: METOPROLOL TARTRATE 25 MG TAB PO SCH (16:00)
== END 2022-11-10 16:31 | DRG 522 ==
LOC: EC 05:15 → 4SSUR 08:47
PROVIDERS: ADMIT Orthopaedic Surgery Sports Medicine; ATTEND Orthopaedic Surgery Sports Medicine
PROC: 2W3FX1Z Immobilization of Left Hand using Splint (ICD-10-PCS; 2022-11-07)
PROC: 0SRS01A Replacement of Left Hip Joint, Femoral Surface with Metal Synthetic Substitute, Uncemented, Open Approach (ICD-10-PCS; principal; 2022-11-08 12:00)
DX: S72.012A Unspecified intracapsular fracture of left femur, initial encounter for closed fracture (principal); S52.502A Unspecified fracture of the lower end of left radius, initial encounter for closed fracture; I27.20 Pulmonary hypertension, unspecified; I11.9 Hypertensive heart disease without heart failure; E78.5 Hyperlipidemia, unspecified; D72.829 Elevated white blood cell count, unspecified; I08.1 Rheumatic disorders of both mitral and tricuspid valves; R41.81 Age-related cognitive decline; Z20.822 Contact with and (suspected) exposure to COVID-19; L40.9 Psoriasis, unspecified; I44.7 Left bundle-branch block, unspecified; I25.10 Atherosclerotic heart disease of native coronary artery without angina pectoris; R79.89 Other specified abnormal findings of blood chemistry; R74.01 Elevation of levels of liver transaminase levels; I25.2 Old myocardial infarction; W01.0XXA Fall on same level from slipping, tripping and stumbling without subsequent striking against object, initial encounter; Y93.89 Activity, other specified; Y92.000 Kitchen of unspecified non-institutional (private) residence as the place of occurrence of the external cause; Z79.82 Long term (current) use of aspirin; Z79.899 Other long term (current) drug therapy; Z28.310 Unvaccinated for COVID-19; Z95.1 Presence of aortocoronary bypass graft; Z96.641 Presence of right artificial hip joint; Z88.5 Allergy status to narcotic agent; Z88.6 Allergy status to analgesic agent; Z86.73 Personal history of transient ischemic attack (TIA), and cerebral infarction without residual deficits; Z87.442 Personal history of urinary calculi
CPT/HCPCS: 71045; 73501; 73502; 80053; 83735; 85025; 85027; 85610; 87635; 88305; 88311; 93005; 96365; 96375; 99285

== ENCOUNTER 2022-12-03 17:19 | Emergency (ER) | payer MEDICARE ==
[2022-12-03 17:37] VITALS: TEMP 98.5
--- NOTE | 2022-12-03 18:27 | ED ---
GI Bleed HPI - General Chief complaint: GI Bleed Stated complaint: bloody bowel movement Time Seen by Provider: 12/03/22 18:15 Source: patient, family, RN notes reviewed, old records reviewed Mode of arrival: wheelchair Limitations: no limitations - History of Present Illness Initial comments: 87-year-old female, alert and oriented, presents to the emergency room with her family members from [facility]. Staff called family stating masoud ent had 2 episodes of diarrhea today, first episode red and bloody and second episode black. Patient is currently on Bactrim for UTI. Underwent left hip surgery November 08 and sent to [facility] Patient denies any chest pain or shortness of breath. No abdominal pain. Denies any other abnormal bleeding. Family states patient is taking aspirin 3 times a day but unsure on the amount. No other blood thinners. History of coronary artery disease, CABG, hypertension, MD. MD complaint: melena -: days(s) (1) Radiation: none Severity scale (1-10): 2 - Related Data Home Medications Medication Instructions Recorded Confirmed Aspirin EC [Ecotrin Low Dose] 81 mg PO BID@0700,1900 09/27/15 12/03/22 amLODIPine [Norvasc] 10 mg PO DAILY@1900 11/07/22 12/03/22 Loperamide [Imodium] 2 mg PO DAILY PRN 12/03/22 12/03/22 Metoprolol Tartrate [Lopressor] 25 mg PO DAILY@0700 12/03/22 12/03/22 Sulfamethox-Tmp 800-160Mg [Bactrim 1 tab PO BID@0700,1900 12/03/22 12/03/22 DS 800-160 mg] Previous Rx's Medication Instructions Recorded Acetaminophen Tab [Tylenol] 650 mg PO Q6HR PRN tab 11/10/22 Allergies Allergy/AdvReac Type Severity Reaction Status Date / Time morphine AdvReac Hallucinati Verified 12/03/22 21:05 ons Review of Systems ROS Statement: Those systems with pertinent positive or pertinent negative responses have been documented in the HPI. ROS Other: All systems not noted in ROS Statement are negative. Past Medical History Past Medical History: Coronary Artery Disease (CAD), Chest Pain / Angina, Hyperlipidemia, Hypertension, Myocardial Infarction (MD), Skin Disorder Additional Past Medical History / Comment(s): TIA-pt states never confirmed, psoriasis.kidney stones, past stress test Last Myocardial Infarction Date:: 2009 History of Any Multi-Drug Resistant Organisms: None Reported Past Surgical History: Coronary Bypass/CABG, Heart Catheterization, Orthopedic Surgery, Tonsillectomy Additional Past Surgical History / Comment(s): 2009 CABG 4 vessel, bilateral cataract removals with lens implants.lithoptripsy. Right hip Past Anesthesia/Blood Transfusion Reactions: No Reported Reaction Additional Past Anesthesia/Blood Transfusion Reaction / Comment(s): states "hallucinations after surgery" Past Psychological History: Anxiety Smoking Status: Never smoker Past Alcohol Use History: None Reported Past Drug Use History: None Reported - Past Family History Mother Family Medical History: No Reported History Additional Family Medical History / Comment(s): . Father Family Medical History: CVA/TIA Additional Family Medical History / Comment(s): Father had a surgical procedure with a CVA post op. He 5 yrs later at the age of 66yrs. General Exam Limitations: no limitations General appearance: alert, in no apparent distress Head exam: Present: atraumatic Eye exam: Present: normal appearance, EOMI. Absent: scleral icterus, conjunctival injection, periorbital swelling, periorbital tenderness ENT exam: Present: mucous membranes moist Neck exam: Present: full ROM. Absent: tenderness, meningismus Respiratory exam: Present: normal lung sounds bilaterally. Absent: respiratory distress, accessory muscle use Cardiovascular Exam: Present: regular rate GI/Abdominal exam: Present: soft, normal bowel sounds. Absent: distended, tenderness, guarding, rebound, rigid Rectal exam: Present: normal rectal tone, other (melena) Extremities exam: Present: full ROM, normal capillary refill. Absent: tenderness, pedal edema, joint swelling, calf tenderness Back exam: Present: normal inspection, full ROM. Absent: CVA tenderness (R), CVA tenderness (L), rash noted Neurological exam: Present: alert Psychiatric exam: Present: normal affect, normal mood Skin exam: Present: warm, dry, normal color. Absent: cyanosis, diaphoretic, petechiae, pallor Course Vital Signs 12/03/22 12/03/22 12/03/22 17:35 19:42 19:45 Temperature 98.5 F Pulse Rate 88 80 Respiratory 16 20 Rate Blood Pressure 91/52 96/48 O2 Sat by Pulse 98 95 Oximetry 12/03/22 12/03/22 12/03/22 20:00 20:15 20:30 Temperature Pulse Rate 80 81 77 Respiratory 18 18 17 Rate Blood Pressure 113/52 106/52 114/51 O2 Sat by Pulse 97 97 97 Oximetry 12/03/22 21:00 Temperature Pulse Rate 78 Respiratory 16 Rate Blood Pressure 111/54 O2 Sat by Pulse 97 Oximetry Medical Decision Making - Medical Decision Making Was pt. sent in by a medical professional or institution (, PA, PRECISION AGRONOMIST, urgent care, hospital, or senior care...) When possible be specific @ -No Did you speak to anyone other than the patient for history (EMS, parent, family, police, friend...)? What history was obtained from this source @ -Family members regarding medical history, recent surgery and what assisted living staff reported to them of rectal bleeding Did you review nursing and triage notes (agree or disagree)? Why? @ -I reviewed and agree with nursing and triage notes Were old charts reviewed (outside hosp., previous admission, EMS record, old EKG, old radiological studies, urgent care reports/EKG's, senior care records)? Report findings @ -Previous Lab results in October and old EKG Differential Diagnosis (chest pain, altered mental status, abdominal pain women, abdominal pain men, vaginal bleeding, weakness, fever, dyspnea, syncope, headache, dizziness, GI bleed, back pain, seizure, CVA, palpatations, mental health, musculoskeletal)? @ -Differential GI Bleed: Esophageal varices, aortoenteric fistula, Lexie-Hilario, gastritis, peptic ulcer disease, diverticulosis, inflammatory bowel disease, hemorrhoids, fissure, colitis, malignancy, Meckels diverticulum, this is not meant to be an all-incl usive list. EKG interpreted by me (3pts min.). @ -yes EKG interpreted by me shows sinus rhythm with a ventricular rate of 84, MD interval 0.195, QRS 0.124, QTC 0.412, right axis deviation. T-wave inversions in leads II, III, aVF and aVL compared to 11/10/2022 Repeat EKG interpreted by me showing sinus rhythm with ventricular rate 84, MD interval 0.195, acute QRS 0.124, QTC 0.412, right axis deviation. No significant change compared to initial EKG. X-rays interpreted by me (1pt min.). @ -None done CT interpreted by me (1pt min.). @ -None done U/S interpreted by me (1pt. min.). @ -None done What testing was considered but not performed or refused? (CT, X-rays, U/S, labs)? Why? @ -None What meds were considered but not given or refused? Why? @ -None Did you discuss the management of the patient with other professionals (professionals i.e. , PA, PRECISION AGRONOMIST, lab, RT, psych nurse, social service agency director, director of marketing analytics, teacher, air force senior officer, showcase maker)? Give summary @ -No Was smoking cessation discussed for >3mins.? @ -No Was critical care preformed (if so, how long)? @ -No Were there social determinants of health that impacted care today? How? (Homelessness, low income, unemployed, alcoholism, drug addiction, transportation, low edu. Level, literacy, decrease access to med. care, correction, rehab)? @ -No Was there de-escalation of care discussed even if they declined (Discuss DNR or withdrawal of care, Hospice)? DNR status @ -No What co-morbidities impacted this encounter? (DM, HTN, Smoking, COPD, CAD, Cancer, CVA, ARF, Chemo, Hep., AIDS, mental health diagnosis, sleep apnea, morbid obesity)? @ -MD, coronary artery disease, hypertension Was patient admitted / discharged? Hospital course, mention meds given and route, prescriptions, significant lab abnormalities, going to OR and other pertinent info. @ -Discharged 87-year-old female, alert and oriented, presents to the emergency room with her family members from [facility]. Staff called family stating patient had 2 episodes of diarrhea today, first episode red and bloody and second episode black. Patient is currently on Bactrim for UTI. Underwent left hip surgery November 08 and sent to [facility]. [facility] Patient denies any chest pain or shortness of breath. No abdominal pain. Denies any other abnormal bleeding. Family states patient is taking aspirin 3 times a day but unsure on the amount. No other blood thinners. History of coronary artery disease, CABG, hypertension, MD. EKG interpreted by me shows sinus rhythm with a ventricular rate of 84, MD interval 0.195, QRS 0.124, QTC 0.412, right axis deviation. T-wave inversions in leads II, III, aVF and aVL compared to 11/10/2022 Repeat EKG interpreted by me showing sinus rhythm with ventricular rate 84, MD interval 0.195, acute QRS 0.124, QTC 0.412, right axis deviation. No significant change compared to initial EKG. Patient continues deny any chest pain Troponin negative at 0.012. Hemoglobin 10.6, was 12.4 on 11/12 after hip surgery on 11/08. Occult blood positive Potassium 5.3, creatinine 1.06 both elevated from November 12. Urinalysis shows UTI susceptible to Bactrim which is patient is taking at this time. I discussed with family members at length discharge versus admission and transfer. I did offer admission and transfer to [facility] for the GI bleeding and family declined. I did explain at this time patient is hemodynamically stable. There were directed to return to the emergency room with any new or concerning symptoms including increase bleeding, dizziness, chest pain or shortness of breath. They are agreeable to this plan of care. I did discuss this case with Dr. Zamora who states patient can be discharged to follow up with primary care doctor. Undiagnosed new problem with uncertain prognosis? @ -No Drug Therapy requiring intensive monitoring for toxicity (Heparin, Nitro, Insulin, Cardizem)? @ -No Were any procedures done? @ -No Diagnosis/symptom? @ -GI bleed, UTI Acute, or Chronic, or Acute on Chronic? @ -Acute Uncomplicated (without systemic symptoms) or Complicated (systemic symptoms)? @ -Complicated Side effects of treatment? @ -No Exacerbation, Progression, or Severe Exacerbation? @ -No Poses a threat to life or bodily function? How? (Chest pain, USA, MD, pneumonia, PE, COPD, DKA, ARF, appy, cholecystitis, CVA, Diverticulitis, Homicidal, Suicidal, threat to staff... and all critical care pts) @ -No - Lab Data Result diagrams: 12/03/22 18:41 12/03/22 18:41 Lab Results 12/03/22 12/03/22 12/03/22 Range/Units 18:41 18:41 18:41 WBC 9.0 (3.8-10.6) k/uL RBC 3.18 L (3.80-5.40) m/uL Hgb 10.6 L D (11.4-16.0) gm/dL Hct 32.0 L (34.0-46.0) % MCV 100.6 H (80.0-100.0) fL MCH 33.2 (25.0-35.0) pg MCHC 33.0 (31.0-37.0) g/dL RDW 13.8 (11.5-15.5) % Plt Count 291 (150-450) k/uL MPV 8.1 Neutrophils % 85 % Lymphocytes % 6 % Monocytes % 3 % Eosinophils % 5 % Basophils % 0 % Neutrophils # 7.7 (1.3-7.7) k/uL Lymphocytes # 0.5 L (1.0-4.8) k/uL Monocytes # 0.3 (0-1.0) k/uL Eosinophils # 0.4 (0-0.7) k/uL Basophils # 0.0 (0-0.2) k/uL Macrocytosis Slight PT 10.4 (9.0-12.0) sec INR 1.0 (<1.2) APTT 22.1 (22.0-30.0) sec Sodium (137-145) mmol/L Potassium (3.5-5.1) mmol/L Chloride (98-107) mmol/L Carbon Dioxide (22-30) mmol/L Anion Gap mmol/L BUN (7-17) mg/dL Creatinine (0.52-1.04) mg/dL Est GFR (CKD-EPI)AfAm (>60 ml/min/1.73 sqM) Est GFR (CKD-EPI)NonAf (>60 ml/min/1.73 sqM) Glucose (74-99) mg/dL Calcium (8.4-10.2) mg/dL Magnesium (1.6-2.3) mg/dL Total Bilirubin (0.2-1.3) mg/dL AST (14-36) U/L ALT (4-34) U/L Alkaline Phosphatase (38-126) U/L Troponin I (0.000-0.034) ng/mL Total Protein (6.3-8.2) g/dL Albumin (3.5-5.0) g/dL Urine Color Urine Appearance (Clear) Urine pH (5.0-8.0) Ur Specific [place] (1.001-1.035) Urine Protein (Negative) Urine Glucose (UA) (Negative) Urine Ketones (Negative) Urine Blood (Negative) Urine Nitrite (Negative) Urine Bilirubin (Negative) Urine Urobilinogen (<2.0) mg/dL Ur Leukocyte Esterase (Negative) Urine RBC (0-5) /hpf Urine WBC (0-5) /hpf Ur Squamous Epith Cells (0-4) /hpf Urine Bacteria (None) /hpf Urine Mucus (None) /hpf Stool Occult Blood Positive H (Negative) 12/03/22 12/03/22 12/03/22 Range/Units 18:41 18:41 18:41 WBC (3.8-10.6) k/uL RBC (3.80-5.40) m/uL Hgb (11.4-16.0) gm/dL Hct (34.0-46.0) % MCV (80.0-100.0) fL MCH (25.0-35.0) pg MCHC (31.0-37.0) g/dL RDW (11.5-15.5) % Plt Count (150-450) k/uL MPV Neutrophils % % Lymphocytes % % Monocytes % % Eosinophils % % Basophils % % Neutrophils # (1.3-7.7) k/uL Lymphocytes # (1.0-4.8) k/uL Monocytes # (0-1.0) k/uL Eosinophils # (0-0.7) k/uL Basophils # (0-0.2) k/uL Macrocytosis PT (9.0-12.0) sec INR (<1.2) APTT (22.0-30.0) sec Sodium 140 (137-145) mmol/L Potassium 5.3 H (3.5-5.1) mmol/L Chloride 109 H (98-107) mmol/L Carbon Dioxide 20 L (22-30) mmol/L Anion Gap 11 mmol/L BUN 49 H (7-17) mg/dL Creatinine 1.06 H (0.52-1.04) mg/dL Est GFR (CKD-EPI)AfAm 55 (>60 ml/min/1.73 sqM) Est GFR (CKD-EPI)NonAf 47 (>60 ml/min/1.73 sqM) Glucose 108 H (74-99) mg/dL Calcium 9.4 (8.4-10.2) mg/dL Magnesium 2.1 (1.6-2.3) mg/dL Total Bilirubin 0.4 (0.2-1.3) mg/dL AST 24 (14-36) U/L ALT 16 (4-34) U/L Alkaline Phosphatase 93 (38-126) U/L Troponin I <0.012 (0.000-0.034) ng/mL Total Protein 6.1 L (6.3-8.2) g/dL Albumin 3.5 (3.5-5.0) g/dL Urine Color Light Yellow Urine Appearance Clear (Clear) Urine pH 6.0 (5.0-8.0) Ur Specific [place] 1.011 (1.001-1.035) Urine Protein Negative (Negative) Urine Glucose (UA) Negative (Negative) Urine Ketones Negative (Negative) Urine Blood Large H (Negative) Urine Nitrite Negative (Negative) Urine Bilirubin Negative (Negative) Urine Urobilinogen <2.0 (<2.0) mg/dL Ur Leukocyte Esterase Moderate H (Negative) Urine RBC 1 (0-5) /hpf Urine WBC 37 H (0-5) /hpf Ur Squamous Epith Cells 1 (0-4) /hpf Urine Bacteria Occasional H (None) /hpf Urine Mucus Rare H (None) /hpf Stool Occult Blood (Negative) - EKG Data -: EKG Interpreted by Mt EKG shows normal: sinus rhythm (EKG interpreted by me shows sinus rhythm with a ventricular rate of 84, MD interval 0.195, QRS 0.124, QTC 0.412, right axis deviation.) Disposition Clinical Impression: UTI (urinary tract infection), GIB (gastrointestinal bleeding) Disposition: HOME SELF-CARE Condition: Good Instructions (If sedation given, give patient instructions): Gastrointestinal Bleeding (ED), Urinary Tract Infection in Women (ED) Additional Instructions: Take only one dose of aspirin a day. Continue taking the Bactrim as prescribed for urinary tract infection. Increase her fluid intake. Return to the emergency room with any new or concerning symptoms including chest pain, diffi culty in breathing, dizziness or excessive rectal bleeding. Follow-up with your primary care doctor on Tuesday for reevaluation. Is patient prescribed a controlled substance at d/c from ED?: No Referrals: None,Stated [Primary Care Provider] - 1-2 days Time of Disposition: 20:52
[2022-12-03 19:19] LABS: Basophils % (A) 0 %; Eosinophils # (A) 0.4 k/uL (0-0.7); Eosinophils % (A) 5 %; Lymphocytes # (A) 0.5 k/uL (1.0-4.8); Lymphocytes % (A) 6 %; MCH 33.2 pg (25.0-35.0); MCV 100.6 fL (80.0-100.0); Macrocytosis Slight; Mean Platelet Volume 8.1; Monocytes # (A) 0.3 k/uL (0-1.0); Monocytes % (A) 3 %; Neutrophils # (A) 7.7 k/uL (1.3-7.7); Neutrophils % (A) 85 %; Platelet Count 291 k/uL (150-450); RBC 3.18 m/uL (3.80-5.40); RDW 13.8 % (11.5-15.5)
[2022-12-03 19:22] LABS: ALT 16 U/L (4-34); AST 24 U/L (14-36); African American GFR (CKD) 55 (>60 ml/min/1.73 sqM); Albumin 3.5 g/dL (3.5-5.0); Alkaline Phosphatase 93 U/L (38-126); Anion Gap 11 mmol/L; Blood Urea Nitrogen 49 mg/dL (7-17); Calcium 9.4 mg/dL (8.4-10.2); Carbon Dioxide 20 mmol/L (22-30); Chloride 109 mmol/L (98-107); Glucose 108 mg/dL (74-99); Magnesium 2.1 mg/dL (1.6-2.3); Non-African American GFR(CKD) 47 (>60 ml/min/1.73 sqM); Potassium 5.3 mmol/L (3.5-5.1); Sodium 140 mmol/L (137-145); Total Bilirubin 0.4 mg/dL (0.2-1.3); Total Protein 6.1 g/dL (6.3-8.2)
[2022-12-03 19:25] LABS: HGB 10.6 gm/dL (11.4-16.0)
[2022-12-03 20:04] LABS: Partial Thromboplastin Time 22.1 sec (22.0-30.0); Prothrombin Time 10.4 sec (9.0-12.0)
[2022-12-03 20:09] LABS: Appearance,Urine Clear (Clear); Bacteria,Urine Occasional /hpf; Bilirubin,Urine Negative (Negative); Blood,Urine Large (Negative); Color,Urine Light Yellow; Glucose,Urine (UA) Negative (Negative); Ketones,Urine Negative (Negative); Leukocyte Esterase,Urine Moderate (Negative); Mucus,Urine Rare /hpf; Nitrite,Urine Negative (Negative); Protein,Urine Negative (Negative); RBC,Urine 1 /hpf (0-5); Specific Gravity,Urine 1.011 (1.001-1.035); Squamous Epithelial Cell,Urine 1 /hpf (0-4); Urobilinogen,Urine <2.0 mg/dL (<2.0); WBC,Urine 37 /hpf (0-5)
[2022-12-03 21:05] VITALS: BP 111/54; PULSE 78; RESP 16
== END 2022-12-03 21:49 | disposition home or self-care (01) ==
LOC: EC 17:19
DX: N39.0 Urinary tract infection, site not specified (principal); K92.2 Gastrointestinal hemorrhage, unspecified; I25.10 Atherosclerotic heart disease of native coronary artery without angina pectoris; I10 Essential (primary) hypertension; I25.2 Old myocardial infarction; F41.9 Anxiety disorder, unspecified; Z79.82 Long term (current) use of aspirin; Z79.899 Other long term (current) drug therapy; Z88.5 Allergy status to narcotic agent
CPT/HCPCS: 36415; 80053; 81001; 82272; 83735; 84484; 85025; 85610; 85730; 93005; 99285

== ENCOUNTER 2022-12-12 06:44 | Inpatient (IN) | payer MEDICARE ==
[2022-12-12 06:52] VITALS: TEMP 98.4
[2022-12-12] MEDS ORDERED: fentaNYL (PF) 50 MCG/ML 2 ML AMP IVP PRN (07:19)
[2022-12-12] MEDS ORDERED: SODIUM CHLORIDE 0.9% 1,000 ML IV STA (07:24)
--- NOTE | 2022-12-12 07:24 | ED ---
General Adult HPI - General Source: patient Mode of arrival: wheelchair <Marin Zamora - Last Filed: 12/12/22 07:31> <Kenna Brown - Last Filed: 12/13/22 00:26> - General Chief complaint: Abdominal Pain Stated complaint: Abd Pain Time Seen by Provider: 12/12/22 07:18 - History of Present Illness Initial comments: Dictation was produced using [employer] dictation software. please excuse any grammatical, word or spelling errors. Chief Complaint: 87-year-old female presents to the emergency department for abdominal pain History of Present Illness: Is 87-year-old female seen in the emergency department last week for GI bleed. She refused further care and was discharged. She last week started to feel little bit better her GI bleeding and resolved however over the last 3-4 days she had worsening abdominal pain she states the pain is diffuse. She does complain of nausea. She did have some bouts of diarrhea. Denies any fever. Patient has a history of hypertension. Daughter at the bedside suspects that she is overmedicated on blood pressure medications. The ROS documented in this emergency department record has been reviewed and confirmed by me. Those systems with pertinent positive or negative responses have been documented in the HPI. All other systems are other negative and/or noncontributory. (Marin Zamora) - Related Data Home Medications Medication Instructions Recorded Confirmed Aspirin EC [Ecotrin Low Dose] 81 mg PO BID@0700,1900 09/26/12/12/22 amLODIPine [Norvasc] 10 mg PO DAILY@189911/07/22 12/12/22 Loperamide [Imodium] 2 mg PO DAILY PRN 12/03/22 12/12/22 Metoprolol Tartrate [Lopressor] 25 mg PO DAILY@0700 12/03/22 12/12/22 Sulfamethox-Tmp 800-160Mg [Bactrim 1 tab PO BID@0700,1900 12/03/22 12/12/22 DS 800-160 mg] Previous Rx's Medication Instructions Recorded Acetaminophen Tab [Tylenol] 650 mg PO Q6HR PRN tab 11/10/22 Allergies Allergy/AdvReac Type Severity Reaction Status Date / Time morphine AdvReac Hallucinati Verified 12/12/22 13:44 ons Review of Systems ROS Other: All systems not noted in ROS Statement are negative. <Marin Zamora - Last Filed: 12/12/22 07:31> ROS Other: All systems not noted in ROS Statement are negative. <Kenna Brown Carmelo - Last Filed: 12/13/22 00:26> ROS Statement: Those systems with pertinent positive or pertinent negative responses have been documented in the HPI. Past Medical History Past Medical History: Coronary Artery Disease (CAD), Chest Pain / Angina, Hyperlipidemia, Hypertension, Myocardial Infarction ([place]), Skin Disorder Additional Past Medical History / Comment(s): TIA-pt states never confirmed, psoriasis.kidney stones, past stress test Last Myocardial Infarction Date:: 2009 History of Any Multi-Drug Resistant Organisms: None Reported Past Surgical History: Coronary Bypass/CABG, Heart Catheterization, Orthopedic Surgery, Tonsillectomy Additional Past Surgical History / Comment(s): 2009 CABG 4 vessel, bilateral cataract removals with lens implants.lithoptripsy. Right hip Past Anesthesia/Blood Transfusion Reactions: No Reported Reaction Additional Past Anesthesia/Blood Transfusion Reaction / Comment(s): states "hallucinations after surgery" Past Psychological History: Anxiety Smoking Status: Never smoker Past Alcohol Use History: None Reported Past Drug Use History: None Reported - Past Family History Mother Family Medical History: No Reported History Additional Family Medical History / Comment(s): . Father Family Medical History: CVA/TIA Additional Family Medical History / Comment(s): Father had a surgical procedure with a CVA post op. He 5 yrs later at the age of 66yrs. <Marin Zamora - Last Filed: 12/12/22 07:31> General Exam <Marin Zamora - Last Filed: 12/12/22 07:31> - General Exam Comments Initial Comments: PHYSICAL EXAM: General Impression: Alert and oriented x3, acute distress secondary to abdominal pain, cachexic HEENT: Normocephalic atraumatic, extra-ocular movements intact, pupils equal and reactive to light bilaterally, mucous membranes moist. Cardiovascular: Heart regular rate and rhythm Chest: Able to complete full sentences, no retractions, no tachypnea Abdomen: abdomen soft, diffuse palpatory tenderness, non-distended, no organomegaly Musculoskeletal: Pulses present and equal in all extremities, no peripheral edema Motor: no focal deficits noted Neurological: CN II-XII grossly intact, no focal motor or sensory deficits noted Skin: Intact with no visualized rashes Psych: Normal affect and mood (Marin Zamora) Course <Marin Zamora - Last Filed: 12/12/22 07:31> Vital Signs 12/12/22 12/12/22 12/12/22 06:46 07:13 08:14 Temperature 98.4 F Pulse Rate 117 H 113 H 93 Respiratory 22 20 20 Rate Blood Pressure 88/53 84/60 108/46 O2 Sat by Pulse 97 96 98 Oximetry 12/12/22 12/12/22 09:13 10:05 Temperature Pulse Rate 96 94 Respiratory 20 16 Rate Blood Pressure 108/46 105/54 O2 Sat by Pulse 98 95 Oximetry - Reevaluation(s) Reevaluation #1: 12/12/22 07:23 CODE STATUS was discussed with patient and daughter at the bedside. They would like to avoid any sort of aggressive resuscitative measures including central venous catheter, intubation and CPR should patient decompensate (Marin Zamora) Medical Decision Making <Marin Zamora - Last Filed: 12/12/22 07:31> - Lab Data Result diagrams: 12/12/22 07:33 12/12/22 07:33 <Kenna Brown - Last Filed: 12/13/22 00:26> - Medical Decision Making Was pt. sent in by a medical professional or institution ([facility], [facility], urgent care, hospital, or alf...) When possible be specific @ -[No] Did you speak to anyone other than the patient for history (EMS, parent, family, police, friend...)? What history was obtained from this source @ -Daughter at the bedside reports that patient is having abdominal pain and diarrhea Did you review nursing and triage notes (agree or disagree)? Why? @ -[I reviewed and agree with nursing and triage notes] Were old charts reviewed (outside hosp., previous admission, EMS record, old EKG, old radiological studies, urgent care reports/EKG's, alf records)? Report findings @ -[No old charts were reviewed] Differential Diagnosis (chest pain, altered mental status, abdominal pain women, abdominal pain men, vaginal bleeding, musculoskeletal, weakness, fever, dyspnea, syncope, headache, dizziness, GI bleed, back pain, seizure, CVA, palpatations, mental health)? @ -Differential Abdominal Pain Women: Appendicitis, Cholecystitis, diverticulosis, ischemic bowel, pancreatitis, hepatitis, UTI, gastroenteritis, AAA, incarcerated hernia, bowel obstruction, constipation, inflammatory bowel, hepatitis, peptic ulcer disease, splenic infarction, perforated viscus, vulvitis, ovarian torsion, PID, kidney stone, placenta abruption, this is not meant to be an all-inclusive list (Marin Zamora) EKG interpreted by me (3pts min.). @ -Yes and demonstrates a sinus tachycardia with a rate of 114. MA interval 191. QRS 129. QTC of 406. No ST segment elevation X-rays interpreted by me (1pt min.). @ -None done CT interpreted by me (1pt min.). @ -yes and demonstrates perforated bowel U/S interpreted by me (1pt. min.). @ -None done What testing was considered but not performed or refused? (CT, X-rays, U/S, labs)? Why? @ -None What meds were considered but not given or refused? Why? @ -Antibiotics however patient is going to go comfort care Did you discuss the management of the patient with other professionals (professionals i.e. , PA, [facility], lab, RT, psych nurse, social work professor, it sales representative, teacher, community service patrol officer, case briefer)? Give summary @ -Hospice nurse and Dr. Savage Was smoking cessation discussed for >3mins.? @ -No Was critical care preformed (if so, how long)? @ -yes, 35 minutes. Spoke with several children of the patient. Discussed goals of care and code status Were there social determinants of health that impacted care today? How? (Homelessness, low income, unemployed, alcoholism, drug addiction, transportation, low edu. Level, literacy, decrease access to med. care, skilled nursing, rehab)? @ -No Was there de-escalation of care discussed even if they declined (Discuss DNR or withdrawal of care, Hospice)? DNR status @ -No What co-morbidities impacted this encounter? (DM, HTN, Smoking, COPD, CAD, Cancer, CVA, ARF, Chemo, Hep., AIDS, mental health diagnosis, sleep apnea, morbid obesity)? @ -None Was patient admitted / discharged? Hospital course, mention meds given and route, prescriptions, significant lab abnormalities, going to OR and other pe rtinent info. @ -The patient was signed out to me from Dr. Zamora. I reviewed the patient's lab results. Lactic acid is 5.2. CT is remarkable for a duodenal perforation with adjacent acute cholecystitis. I discussed these results with the patient and her family. Discussed the need for surgical intervention. Family would not like to pursue surgery at this time due to patient's advanced age and comorbid conditions. I do feel that this is appropriate for the patient. They are requesting comfort orders. I did call and speak with the hospice nurse. They recommended the patient be admitted to the medicine service with comfort care orders. Patient will be flipped to hospice status as soon as they can come in and evaluate the patient. I did call and speak with Dr. Savage who is agreeable to admit the patient. Comfort care orders are placed and the patient is transp orted to the floor Undiagnosed new problem with uncertain prognosis? @ -yes Drug Therapy requiring intensive monitoring for toxicity (Heparin, Nitro, Insulin, Cardizem)? @ -No Were any procedures done? @ -No Diagnosis/symptom? @ -acute abd pain, acute perforated duodenal ulcer, lactic acidosis, severe sepsis Acute, or Chronic, or Acute on Chronic? @ -acute Uncomplicated (without systemic symptoms) or Complicated (systemic symptoms)? @ -complicated Side effects of treatment? @ -No Exacerbation, Progression, or Severe Exacerbation? @ -No Poses a threat to life or bodily function? How? (Chest pain, USA, AR, pneumonia, PE, COPD, DKA, ARF, appy, cholecystitis, CVA, Diverticulitis, Homicidal, Suicidal, threat to staff... and all critical care pts) @ -yes, patient will succumb to diagnosis without surgery (Kenna Brown) - Lab Data Lab Results 12/12/22 12/12/22 12/12/22 Range/Units 07:30 07:33 07:33 WBC 6.1 (3.8-10.6) k/uL RBC 3.36 L (3.80-5.40) m/uL Hgb 11.1 L (11.4-16.0) gm/dL Hct 35.0 (34.0-46.0) % MCV 103.9 H (80.0-100.0) fL MCH 32.9 (25.0-35.0) pg MCHC 31.6 (31.0-37.0) g/dL RDW 14.0 (11.5-15.5) % Plt Count 615 H D (150-450) k/uL MPV 8.2 Neutrophils % (Manual) 76 % Band Neuts % (Manual) 7 % Lymphocytes % (Manual) 13 % Monocytes % (Manual) 2 % Eosinophils % (Manual) 3 % Basophils % (Manual) 1 % Metamyelocytes % 1 % Neutrophils # (Manual) 5.00 (1.3-7.7) k/uL Lymphocytes # (Manual) 0.79 L (1.0-4.8) k/uL Monocytes # (Manual) 0.12 (0-1.0) k/uL Eosinophils # (Manual) 0.18 (0-0.7) k/uL Basophils # (Manual) 0.06 (0-0.2) k/uL Metamyelocytes # (Man) 0.06 H (0) k/uL Nucleated RBCs 0 (0-0) /100 WBC Manual Slide Review Performed Hypochromasia Slight Macrocytosis Slight PT 10.1 (9.0-12.0) sec INR 1.0 (<1.2) APTT 22.0 (22.0-30.0) sec Sodium (137-145) mmol/L Potassium (3.5-5.1) mmol/L Chloride (98-107) mmol/L Carbon Dioxide (22-30) mmol/L Anion Gap mmol/L BUN (7-17) mg/dL Creatinine (0.52-1.04) mg/dL Est GFR (CKD-EPI)AfAm (>60 ml/min/1.73 sqM) Est GFR (CKD-EPI)NonAf (>60 ml/min/1.73 sqM) Glucose (74-99) mg/dL Lactic Ac Sepsis Rflx Plasma Lactic Acid Giuseppe (0.7-2.0) mmol/L Calcium (8.4-10.2) mg/dL Magnesium (1.6-2.3) mg/dL Total Bilirubin (0.2-1.3) mg/dL AST (14-36) U/L ALT (4-34) U/L Alkaline Phosphatase (38-126) U/L Total Protein (6.3-8.2) g/dL Albumin (3.5-5.0) g/dL Lipase (23-300) U/L Blood Type O Positive Blood Type Recheck O Pos Bld Type Recheck Status No Antibody Screen POSITIVE Antibody Identification Anti-E Direct Antiglob Test Negative Spec Expiration Date 12/15/2022232912/12/22 12/12/22 12/12/22 Range/Units 07:33 07:33 08:21 WBC (3.8-10.6) k/uL RBC (3.80-5.40) m/uL Hgb (11.4-16.0) gm/dL Hct (34.0-46.0) % MCV (80.0-100.0) fL MCH (25.0-35.0) pg MCHC (31.0-37.0) g/dL RDW (11.5-15.5) % Plt Count (150-450) k/uL MPV Neutrophils % (Manual) % Band Neuts % (Manual) % Lymphocytes % (Manual) % Monocytes % (Manual) % Eosinophils % (Manual) % Basophils % (Manual) % Metamyelocytes % % Neutrophils # (Manual) (1.3-7.7) k/uL Lymphocytes # (Manual) (1.0-4.8) k/uL Monocytes # (Manual) (0-1.0) k/uL Eosinophils # (Manual) (0-0.7) k/uL Basophils # (Manual) (0-0.2) k/uL Metamyelocytes # (Man) (0) k/uL Nucleated RBCs (0-0) /100 WBC Manual Slide Review Hypochromasia Macrocytosis PT (9.0-12.0) sec INR (<1.2) APTT (22.0-30.0) sec Sodium 132 L (137-145) mmol/L Potassium 5.7 H (3.5-5.1) mmol/L Chloride 101 (98-107) mmol/L Carbon Dioxide 15 L (22-30) mmol/L Anion Gap 16 mmol/L BUN 19 H (7-17) mg/dL Creatinine 1.59 H (0.52-1.04) mg/dL Est GFR (CKD-EPI)AfAm 33 (>60 ml/min/1.73 sqM) Est GFR (CKD-EPI)NonAf 29 (>60 ml/min/1.73 sqM) Glucose 231 H (74-99) mg/dL Lactic Ac Sepsis Rflx Y Plasma Lactic Acid Giuseppe 5.2 H* (0.7-2.0) mmol/L Calcium 9.0 (8.4-10.2) mg/dL Magnesium 2.0 (1.6-2.3) mg/dL Total Bilirubin 0.8 (0.2-1.3) mg/dL AST 43 H (14-36) U/L ALT 22 (4-34) U/L Alkaline Phosphatase 92 (38-126) U/L Total Protein 7.1 (6.3-8.2) g/dL Albumin 3.9 (3.5-5.0) g/dL Lipase 850 H (23-300) U/L Blood Type Blood Type Recheck Bld Type Recheck Status Antibody Screen Antibody Identification Direct Antiglob Test Spec Expiration Date Disposition <Marin Zamora - Last Filed: 12/12/22 07:31> Is patient prescribed a controlled substance at d/c from ED?: No Time of Disposition: 09:05 Decision to Admit Reason: Admit from EC Decision Date: 12/12/22 Decision Time: 09:05 <Kenna Brown - Last Filed: 12/13/22 00:26> Clinical Impression: Perforated duodenal ulcer, Lactic acid acidosis, Hypotension Disposition: ADMITTED IP TO THIS HOSP Condition: Critical
[2022-12-12 08:06] LABS: ALT 22 U/L (4-34); AST 43 U/L (14-36); African American GFR (CKD) 33 (>60 ml/min/1.73 sqM); Albumin 3.9 g/dL (3.5-5.0); Alkaline Phosphatase 92 U/L (38-126); Anion Gap 16 mmol/L; Blood Urea Nitrogen 19 mg/dL (7-17); Carbon Dioxide 15 mmol/L (22-30); Chloride 101 mmol/L (98-107); Glucose 231 mg/dL (74-99); Lipase 850 U/L (23-300); Non-African American GFR(CKD) 29 (>60 ml/min/1.73 sqM); Sodium 132 mmol/L (137-145); Total Bilirubin 0.8 mg/dL (0.2-1.3); Total Protein 7.1 g/dL (6.3-8.2)
[2022-12-12 08:07] LABS: HGB 11.1 gm/dL (11.4-16.0); Hypochromasia Slight; MCH 32.9 pg (25.0-35.0); MCHC 31.6 g/dL (31.0-37.0); MCV 103.9 fL (80.0-100.0); Macrocytosis Slight; Mean Platelet Volume 8.2; RBC 3.36 m/uL (3.80-5.40); WBC 6.1 k/uL (3.8-10.6)
[2022-12-12 08:08] LABS: Platelet Count 615 k/uL (150-450); Prothrombin Time 10.1 sec (9.0-12.0)
[2022-12-12 08:18] LABS: Band Neutrophils % 7 %; Basophils # (M) 0.06 k/uL (0-0.2); Eosinophils # (M) 0.18 k/uL (0-0.7); Lymphocytes # (M) 0.79 k/uL (1.0-4.8); Metamyelocytes # (M) 0.06 k/uL (0); Metamyelocytes % 1 %; Monocytes # (M) 0.12 k/uL (0-1.0); Neutrophils % (M) 76 %; Nucleated Red Blood Cells 0 /100 WBC (0-0); Potassium 5.7 mmol/L (3.5-5.1); Total Cells Counted 200
--- NOTE | 2022-12-12 08:32 | CT ---
EXAMINATION TYPE: CT abdomen pelvis w con CT DLP: 680.6 mGycm, Automated exposure control for dose reduction was used. DATE OF EXAM: 12/12/2022 8:19 AM COMPARISON: 03/26/2020 CLINICAL INDICATION:Female, 87 years old with history of abdominal pain, hypotension; Abdominal pain, hypotension TECHNIQUE: Axial CT of the abdomen and pelvis. Sagittal and coronal reformats were created on a [employer] workstation. Contrast used:100 ml mL of Isovue 300 with IV Contrast, Oral contrast used: without Oral Contrast FINDINGS: LOWER CHEST: Sternotomy wires noted. ABDOMEN LIVER: Unremarkable GALLBLADDER AND BILE DUCTS: Partially distended hyperemic gallbladder with wall thickening/pericholec ystic fluid fluid. PANCREAS: Unremarkable. SPLEEN: Unremarkable. ADRENAL GLANDS: Unremarkable. KIDNEYS AND URETERS: No obstructive uropathy. There is bilateral nonobstructing calculi measuring up to 7 mm on the left and 10 mm on the right. PELVIS BLADDER: Unremarkable REPRODUCTIVE: Unremarkable. ABDOMEN & PELVIS STOMACH AND BOWEL: No evidence of bowel obstruction. There is some wall thickening of the duodenum ne ar the gallbladder mentioned above. Scattered colonic diverticula present. On series 202 image 51 the re is an area of mucosa absence near the gallbladder with 2 foci of gas in the immediate surrounding tissues. Few scattered colonic diverticula present. PERITONEUM/RETROPERITONEUM: There is pneumoperitoneum layering along the anterior abdominal wall. Michael e fluid is seen throughout the abdomen. VASCULATURE: No evidence of aortic aneurysm. MUSCULOSKELETAL: Scoliosis changes with severe degeneration. Bilateral hip arthroplasty changes hardw are appears intact. LYMPH NODES: No gross evidence for lymphadenopathy. SOFT TISSUE/ABDOMINAL WALL: Unremarkable IMPRESSION: 1. Pneumoperitoneum compatible with hollow viscus perforation. There is a gap in the mucosa of the d uodenum suggesting perforated duodenal ulcer which is immediately next to the gallbladder. Surgical consultation recommended. 2. Acute cholecystitis with wall thickening, hyperemia, mild distention and pericholecystic fluid. T his is likely secondary to 1 given adjacent perforated duodenal ulcer. 3. Trace ascites likely secondary to #1. 4. Colonic diverticulosis. 5. Obstructing renal calculi bilaterally. Findings communicated to Dr. Kenna Brown DO on 12/12/2022 8:[address] Zacarias Martinez.
[2022-12-12] MEDS ORDERED: PIPERACILLIN-TAZOBACTAM 3.375 GM in SODIUM CHLORIDE 0.9% 100 ML IVPB SCH (08:45)
[2022-12-12] MEDS ORDERED: ONDANSETRON 4 MG/2 ML VIAL IVP PRN (09:05)
[2022-12-12] MEDS ORDERED: GLYCOPYRROLATE 0.2 MG/ML 2 ML VIAL IVP PRN (09:05)
[2022-12-12] MEDS ORDERED: ACETAMINOPHEN TAB 325 MG TAB PO PRN (09:05)
[2022-12-12] MEDS ORDERED: HYDROmorphone 0.5 MG/0.5 ML SYRINGE IVP PRN (09:05)
[2022-12-12] MEDS ORDERED: NALOXONE 0.4 MG/ML 1 ML VIAL IV PRN (09:13)
[2022-12-12] MEDS ORDERED: HYDROmorphone 1 MG/ML 1 ML SYRINGE IVP PRN (09:13)
[2022-12-12] MEDS ORDERED: LORazepam 2 MG/ML INJ IV PRN (09:15)
[2022-12-12 10:06] VITALS: BP 105/54; PULSE 94; RESP 16
--- NOTE | 2022-12-12 11:20 | P.HPIM ---
History of Present Illness 87-year-old pleasant female came in with abdominal pain found to have perforated peptic ulcer in acute abdomen requiring surgery. Patient is an 87-year-old female with the poor function status as per family since the hip fracture. Patient is alert oriented. Family doesn't want the patient to go through another surgery testing her age and already poor functional status and memory problems although patient doesn't appear to have any advanced dementia. Patient and family wanted to be on comfort care and hospice hospice was consulted patient is admitted under comfort care and hospice. REVIEW OF SYSTEMS: Development and pertinent positive was discussed in HPI PHYSICAL EXAMINATION: GENERAL: The patient is alert and oriented not in any acute distress. Well developed, well nourished. HEENT: Pupils are round and equally reacting to light. EOMI. No scleral icterus. No conjunctival pallor. Normocephalic, atraumatic. No pharyngeal erythema. No thyromegaly. Dry mucous membranes appears dehydrated CARDIOVASCULAR: S1 and S2 present. No murmurs, rubs, or gallops. PULMONARY: Chest is clear to auscultation, no wheezing or crackles. ABDOMEN: Soft abdominal tenderness MUSCULOSKELETAL: No joint swelling or deformity. EXTREMITIES: No cyanosis, clubbing, or pedal edema. NEUROLOGICAL: Gross neurological examination did not reveal any focal deficits. Generalized weakness SKIN: No rashes. Assessment: -Severe sepsis -Acute abdomen secondary to perforated peptic ulcer -Acute renal failure -Hypervolemic hyponatremia -Anion gap and non-and gap metabolic acidosis secondary to severe sepsis and lactic acidosis -Type 2 diabetes mellitus -Hyperlipidemia -Hypertension -Coronary artery disease with CABG and cardiac catheterization in the past -Generalized deconditioning and poor functional status low Karnofsky score Plan: Patient will be started on comfort measures hospice will evaluate the patient once a hospice evaluation is done patient will be either discharged on hospice services are will be made to general inpatient hospice Past Medical History Past Medical History: Coronary Artery Disease (CAD), Chest Pain / Angina, Hyperlipidemia, Hypertension, Myocardial Infarction ([place]), Skin Disorder Additional Past Medical History / Comment(s): TIA-pt states never confirmed, psoriasis, kidney stones, past stress test Last Myocardial Infarction Date:: 2009 History of Any Multi-Drug Resistant Organisms: None Reported Past Surgical History: Coronary Bypass/CABG, Heart Catheterization, Orthopedic Surgery, Tonsillectomy Additional Past Surgical History / Comment(s): 2009 CABG 4 vessel, bilateral cataract removals with lens implants,lithoptripsy. Right hip Past Anesthesia/Blood Transfusion Reactions: No Reported Reaction Additional Past Anesthesia/Blood Transfusion Reaction / Comment(s): states "hallucinations after surgery" Past Psychological History: Anxiety Additional Psychological History / Comment(s): Patient lives at [facility] Smoking Status: Never smoker Past Alcohol Use History: None Reported Past Drug Use History: None Reported - Past Family History Mother Family Medical History: No Reported History Additional Family Medical History / Comment(s): . Father Family Medical History: CVA/TIA Additional Family Medical History / Comment(s): Father had a surgical procedure with a CVA post op. He 5 yrs later at the age of 66yrs. Medications and Allergies Home Medications Medication Instructions Recorded Confirmed Type Aspirin EC [Ecotrin Low Dose] 81 mg PO BID@0700,1900 09/26/12/03/22 History amLODIPine [Norvasc] 10 mg PO DAILY@1900 11/07/22 12/03/22 History Acetaminophen Tab [Tylenol] 650 mg PO Q6HR PRN tab 11/10/22 12/03/22 Rx Loperamide [Imodium] 2 mg PO DAILY PRN 12/03/22 12/03/22 History Metoprolol Tartrate [Lopressor] 25 mg PO DAILY@0700 12/03/22 12/03/22 History Sulfamethox-Tmp 800-160Mg [Bactrim 1 tab PO BID@0700,1900 12/03/22 12/03/22 History DS 800-160 mg] Allergies Allergy/AdvReac Type Severity Reaction Status Date / Time morphine AdvReac Hallucinati Verified 12/12/22 06:52 ons Physical Exam Vitals: Vital Signs Temp Pulse Resp BP Pulse Ox 12/12/22 10:05 94 16 105/54 95 12/12/22 09:13 96 20 108/46 98 12/12/22 08:14 93 20 108/46 98 12/12/22 07:13 113 H 20 84/60 96 12/12/22 06:46 98.4 F 117 H 22 88/53 97 Intake and Output 12/11/22 12/12/22 12/12/22 22:59 06:59 14:59 Other: Weight 49.895 kg Results CBC & Chem 7: 12/12/22 07:33 12/12/22 07:33 Labs: Abnormal Lab Results - Last 24 Hours (Table) 12/12/22 12/12/22 12/12/22 Range/Units 07:33 07:33 07:33 RBC 3.36 L (3.80-5.40) m/uL Hgb 11.1 L (11.4-16.0) gm/dL MCV 103.9 H (80.0-100.0) fL Plt Count 615 H D (150-450) k/uL Lymphocytes # (Manual) 0.79 L (1.0-4.8) k/uL Metamyelocytes # (Man) 0.06 H (0) k/uL Sodium 132 L (137-145) mmol/L Potassium 5.7 H (3.5-5.1) mmol/L Carbon Dioxide 15 L (22-30) mmol/L BUN 19 H (7-17) mg/dL Creatinine 1.59 H (0.52-1.04) mg/dL Glucose 231 H (74-99) mg/dL Plasma Lactic Acid Giuseppe 5.2 H* (0.7-2.0) mmol/L AST 43 H (14-36) U/L Lipase 850 H (23-300) U/L
--- NOTE | 2022-12-12 11:50 | P.DS ---
Providers Date of admission: 12/12/22 09:13 Attending physician: Gregorio Sung Primary care physician: Stated None Hospital Course: Refer to my H&P and patient is presently general inpatient hospice Patient Condition at Discharge: Critical Plan - Discharge Summary Discharge Rx Participant: No New Discharge Prescriptions: No Action Aspirin EC [Ecotrin Low Dose] 81 mg PO BID@0700,1900 amLODIPine [Norvasc] 10 mg PO DAILY@1900 Sulfamethox-Tmp 800-160Mg [Bactrim DS 800-160 mg] 1 tab PO BID@0700,1900 Metoprolol Tartrate [Lopressor] 25 mg PO DAILY@0700 Acetaminophen Tab [Tylenol] 650 mg PO Q6HR PRN tab PRN Reason: Mild Pain Or Fever > 100.5 Loperamide [Imodium] 2 mg PO DAILY PRN PRN Reason: Diarrhea Discharge Medication List Aspirin EC [Ecotrin Low Dose] 81 mg PO BID@0700,1900 09/27/15 [History] amLODIPine [Norvasc] 10 mg PO DAILY@1900 11/07/22 [History] Acetaminophen Tab [Tylenol] 650 mg PO Q6HR PRN tab 11/10/22 [Rx] Loperamide [Imodium] 2 mg PO DAILY PRN 12/03/22 [History] Metoprolol Tartrate [Lopressor] 25 mg PO DAILY@0700 12/03/22 [History] Sulfamethox-Tmp 800-160Mg [Bactrim DS 800-160 mg] 1 tab PO BID@0700,1900 12/03/22 [History] Follow up Appointment(s)/Referral(s): Nonstaff,Physician [REFERRING] - 1-2 days Discharge Disposition: HOME WITH HOSPICE
== END 2022-12-12 11:42 | disposition hospice, home (50) | DRG 871 ==
LOC: EC 06:44 → 5NMEDONC 09:13
PROVIDERS: ADMIT Hospitalist; ATTEND Hospitalist
DX: A41.9 Sepsis, unspecified organism (principal); K26.5 Chronic or unspecified duodenal ulcer with perforation; E87.1 Hypo-osmolality and hyponatremia; E87.20 Acidosis, unspecified; N17.9 Acute kidney failure, unspecified; R65.20 Severe sepsis without septic shock; E87.70 Fluid overload, unspecified; I25.2 Old myocardial infarction; F41.9 Anxiety disorder, unspecified; E78.5 Hyperlipidemia, unspecified; I10 Essential (primary) hypertension; I25.10 Atherosclerotic heart disease of native coronary artery without angina pectoris; Z51.5 Encounter for palliative care; Z53.20 Procedure and treatment not carried out because of patient's decision for unspecified reasons; Z79.899 Other long term (current) drug therapy; Z86.73 Personal history of transient ischemic attack (TIA), and cerebral infarction without residual deficits; Z95.1 Presence of aortocoronary bypass graft; Z96.1 Presence of intraocular lens; Z98.42 Cataract extraction status, left eye; Z98.41 Cataract extraction status, right eye; Z88.5 Allergy status to narcotic agent
CPT/HCPCS: 36415; 74177; 80053; 83605; 83690; 83735; 85025; 85610; 85730; 86850; 86870; 86880; 86900; 86901; 93005; 96361; 96374; 96375; 99291

== ENCOUNTER 2022-12-12 11:33 | Inpatient (IN) | payer MEDICAID ==
[2022-12-12] MEDS ORDERED: DRY MOUTH SPRAY 44.3 SPRAY/44.3 ML SPRAY MUCOUS MEM PRN (11:34)
[2022-12-12] MEDS ORDERED: ATROPINE OPHTH SOLN 1% 5ML BTL SUBLINGUAL PRN (11:34)
[2022-12-12] MEDS ORDERED: LORazepam 2 MG/ML INJ IV PRN (11:34)
[2022-12-12] MEDS ORDERED: ACETAMINOPHEN SUPPOSITORY 650 MG SUPP RECTAL PRN (11:34)
[2022-12-12] MEDS ORDERED: GLYCOPYRROLATE 0.2 MG/ML 2 ML VIAL IVP PRN (11:34)
[2022-12-12] MEDS ORDERED: ONDANSETRON 4 MG/2 ML VIAL IVP PRN (11:34)
[2022-12-12] MEDS ORDERED: SODIUM CHLORIDE 0.9% 1,000 ML IV SCH (11:45)
--- NOTE | 2022-12-12 11:50 | P.HPIM ---
History of Present Illness 87-year-old pleasant female came in with abdominal pain found to have perforated peptic ulcer in acute abdomen requiring surgery. Patient is an 87-year-old female with the poor function status as per family since the hip fracture. Patient is alert oriented. Family doesn't want the patient to go through another surgery testing her age and already poor functional status and memory problems although patient doesn't appear to have any advanced dementia. Patient and family wanted to be on comfort care and hospice. Patient is presently general inpatient hospice REVIEW OF SYSTEMS: Development and pertinent positive was discussed in HPI PHYSICAL EXAMINATION: GENERAL: The patient is alert and oriented not in any acute distress. Well developed, well nourished. HEENT: Pupils are round and equally reacting to light. EOMI. No scleral icterus. No conjunctival pallor. Normocephalic, atraumatic. No pharyngeal erythema. No thyromegaly. Dry mucous membranes appears dehydrated CARDIOVASCULAR: S1 and S2 present. No murmurs, rubs, or gallops. PULMONARY: Chest is clear to auscultation, no wheezing or crackles. ABDOMEN: Soft abdominal tenderness MUSCULOSKELETAL: No joint swelling or deformity. EXTREMITIES: No cyanosis, clubbing, or pedal edema. NEUROLOGICAL: Gross neurological examination did not reveal any focal deficits. Generalized weakness SKIN: No rashes. Assessment: -Severe sepsis -Acute abdomen secondary to perforated peptic ulcer -Acute renal failure -Hypervolemic hyponatremia -Anion gap and non-and gap metabolic acidosis secondary to severe sepsis and lactic acidosis -Type 2 diabetes mellitus -Hyperlipidemia -Hypertension -Coronary artery disease with CABG and cardiac catheterization in the past -Generalized deconditioning and poor functional status low Karnofsky score Plan: Patient will be started on comfort measures hospice and admitted to inpatient hospice Past Medical History Past Medical History: Coronary Artery Disease (CAD), Chest Pain / Angina, Hyperlipidemia, Hypertension, Myocardial Infarction ([place]), Skin Disorder Additional Past Medical History / Comment(s): TIA-pt states never confirmed, psoriasis, kidney stones, past stress test Last Myocardial Infarction Date:: 2009 History of Any Multi-Drug Resistant Organisms: None Reported Past Surgical History: Coronary Bypass/CABG, Heart Catheterization, Orthopedic Surgery, Tonsillectomy Additional Past Surgical History / Comment(s): 2009 CABG 4 vessel, bilateral cataract removals with lens implants,lithoptripsy. Right hip Past Anesthesia/Blood Transfusion Reactions: No Reported Reaction Additional Past Anesthesia/Blood Transfusion Reaction / Comment(s): states "hallucinations after surgery" Past Psychological History: Anxiety Additional Psychological History / Comment(s): Patient lives at [facility] Smoking Status: Never smoker Past Alcohol Use History: None Reported Past Drug Use History: None Reported - Past Family History Mother Family Medical History: No Reported History Additional Family Medical History / Comment(s): . Father Family Medical History: CVA/TIA Additional Family Medical History / Comment(s): Father had a surgical procedure with a CVA post op. He 5 yrs later at the age of 66yrs. Medications and Allergies Home Medications Medication Instructions Recorded Confirmed Type Aspirin EC [Ecotrin Low Dose] 81 mg PO BID@0700,1900 09/27/15 12/03/22 History amLODIPine [Norvasc] 10 mg PO DAILY@1900 11/07/22 12/03/22 History Acetaminophen Tab [Tylenol] 650 mg PO Q6HR PRN tab 11/10/22 12/03/22 Rx Loperamide [Imodium] 2 mg PO DAILY PRN 12/03/22 12/03/22 History Metoprolol Tartrate [Lopressor] 25 mg PO DAILY@0700 12/03/22 12/03/22 History Sulfamethox-Tmp 800-160Mg [Bactrim 1 tab PO BID@0700,1900 12/03/22 12/03/22 History DS 800-160 mg] Allergies Allergy/AdvReac Type Severity Reaction Status Date / Time morphine AdvReac Hallucinati Verified 12/12/22 06:52 ons Physical Exam Vitals: Intake and Output 12/11/22 12/12/22 12/12/22 22:59 06:59 14:59 Other: Weight 49.8 kg
[2022-12-12] MEDS ORDERED: SCOPOLAMINE 1 MG/72 HR PATCH TRANSDERM SCH (12:30)
[2022-12-12] MEDS: HYDROmorphone 1 MG/ML 1 ML SYRINGE IVP PRN ×2 (15:48→19:37)
[2022-12-12 22:38] VITALS: RESP 14
[2022-12-13] MEDS: HYDROmorphone 1 MG/ML 1 ML SYRINGE IVP PRN ×3 (00:24→07:55)
--- NOTE | 2022-12-14 05:58 | P.DS ---
Providers Date of admission: 12/12/22 11:46 Expected date of discharge: 12/13/22 Attending physician: Dayana Tse Primary care physician: Stated None Hospital Course: Preliminary Cause of Perforated peptic ulcer with severe sepsis Final diagnosis -Severe sepsis -Acute abdomen secondary to perforated peptic ulcer -Acute renal failure -Hypervolemic hyponatremia -Anion gap and non-and gap metabolic acidosis secondary to severe sepsis and lactic acidosis -Type 2 diabetes mellitus -Hyperlipidemia -Hypertension -Coronary artery disease with CABG and cardiac catheterization in the past -Generalized deconditioning and poor functional status low Karnofsky score -No code Discharge disposition Patient has . According to nursing documentation, time of was 1259 on 12/13/2022. Family was present. Total time taken is greater than 35 minutes. Hospital course This is an 87-year-old female who was recently admitted with abdominal pain with severe sepsis, present on admission found to have perforated peptic ulcer and would likely require surgery. Patient and family no longer wished to pursue any surgical measures this patient recently had a fractured hip and steady decline in functional status since then. Family met with hospice and agreeable and met patient criteria and patient placed on comfort measures only. [facility] hospice following. According to nursing documentation, time of was 1259 on 12/13/2022. Please refer to previous documentation for further HPI. The impression and plan of care has been dictated by Shelia Diaz, Nurse Practitioner as directed. Dr. Pineda MD I have performed a history and examination and MDM of this patient, discussed the same with the dictator, and agree with the dictator's assessment and plan as written ,documented as a scribe. Based on total visit time, I have performed more than 50% of the visit. Patient Condition at Discharge: Poor Plan - Discharge Summary Discharge Rx Participant: No New Discharge Prescriptions: No Action Aspirin EC [Ecotrin Low Dose] 81 mg PO BID@0700,1900 amLODIPine [Norvasc] 10 mg PO DAILY@1900 Sulfamethox-Tmp 800-160Mg [Bactrim DS 800-160 mg] 1 tab PO BID@0700,1900 Metoprolol Tartrate [Lopressor] 25 mg PO DAILY@0700 Acetaminophen Tab [Tylenol] 650 mg PO Q6HR PRN tab PRN Reason: Mild Pain Or Fever > 100.5 Loperamide [Imodium] 2 mg PO DAILY PRN PRN Reason: Diarrhea Discharge Medication List Aspirin EC [Ecotrin Low Dose] 81 mg PO BID@0700,1900 09/27/15 [History] amLODIPine [Norvasc] 10 mg PO DAILY@189911/07/22 [History] Acetaminophen Tab [Tylenol] 650 mg PO Q6HR PRN tab 11/10/22 [Rx] Loperamide [Imodium] 2 mg PO DAILY PRN 12/03/22 [History] Metoprolol Tartrate [Lopressor] 25 mg PO DAILY@69912/03/22 [History] Sulfamethox-Tmp 800-160Mg [Bactrim DS 800-160 mg] 1 tab PO BID@0700,189912/03/22 [History] Discharge Disposition: - Preliminary Cause of Preliminary Cause of : Perforated peptic ulcer with severe sepsis
== END 2022-12-13 13:30 | disposition expired | DRG 951 ==
LOC: 5NMEDONC 11:46
PROVIDERS: ADMIT Internal Medicine; ATTEND Internal Medicine
DX: Z51.5 Encounter for palliative care (principal); A41.9 Sepsis, unspecified organism; K27.5 Chronic or unspecified peptic ulcer, site unspecified, with perforation; R65.20 Severe sepsis without septic shock; E87.1 Hypo-osmolality and hyponatremia; E87.20 Acidosis, unspecified; N17.9 Acute kidney failure, unspecified; E78.5 Hyperlipidemia, unspecified; E87.70 Fluid overload, unspecified; F41.9 Anxiety disorder, unspecified; I25.10 Atherosclerotic heart disease of native coronary artery without angina pectoris; I25.2 Old myocardial infarction; I10 Essential (primary) hypertension; L40.9 Psoriasis, unspecified; E11.9 Type 2 diabetes mellitus without complications; Z95.1 Presence of aortocoronary bypass graft; Z96.1 Presence of intraocular lens; Z98.42 Cataract extraction status, left eye; Z98.41 Cataract extraction status, right eye; Z86.73 Personal history of transient ischemic attack (TIA), and cerebral infarction without residual deficits; Z79.899 Other long term (current) drug therapy; Z88.5 Allergy status to narcotic agent